=== PATIENT | female | born 1995 | race Caucasian/White ===

== ENCOUNTER 2017-02-10 09:05 | Emergency (ER) | payer OTHER ==
[~2017-02-10] VITALS: Ht 160 cm; Wt 59.1 kg
[~2017-02-10 09:05] MED LIST: PRENTAB26 PO
[2017-02-10 09:09] VITALS: TEMP 36.8; Ht 160 cm; Wt 59.1 kg
[2017-02-10] MEDS ORDERED: HYDROmorphone INJ 1 MG/ML SYR IV STA ×2 (09:23→12:35)
[2017-02-10] MEDS ORDERED: ONDANSETRON INJ 2 MG/ML 2 ML VIAL IV STA ×2 (09:23→10:27)
[2017-02-10] MEDS ORDERED: KETOROLAC TROMETHAMINE 30 MG/ML VIAL IV STA (09:23)
[2017-02-10] MEDS ORDERED: SODIUM CHLORIDE 0.9% 1000ML 1,000 ML IV STA ×2 (09:23)
[2017-02-10 09:50] LABS: URINE APPEARANCE CLEAR (CLEAR); URINE BILIRUBIN NEG (NEG); URINE COLOR YELLOW; URINE EPITHELIAL CELL AUTO >30 /lpf (0-5); URINE NITRITE NEG (NEG); UROBILINOGEN NEG (NEG)
[2017-02-10 09:56] LABS: MANUAL MICROSCOPIC REQUIRED? NO; REVIEW REQ? NO
[2017-02-10 09:56] LABS: BASO % 0.4 %; BASO ABS # 0.04 K/uL (0-0.2); COMPLETE YES; EOS % 2.6 %; HEMATOCRIT 45.1 % (37-47); IG% 0.2 %; LYMPH % 32.8 %; MEAN CELL VOLUME 86.6 fL (80-100); MEAN CORPUSCULAR HEMOGLOBIN 30.1 pg (25-34); MEAN CORPUSCULAR HGB CONC 34.8 g/dl (32-36); MEAN PLATELET VOLUME 9.9 fL (7.4-10.4); MONO % 6.6 %; NEUT % 57.4 %; PLATELET COUNT 383 K/uL (130-400); RED BLOOD COUNT 5.21 M/uL (4.2-5.4); WHITE BLOOD COUNT 9.15 K/uL (4.8-10.8)
[2017-02-10] MEDS ORDERED: AMT10 PO (10:03)
[2017-02-10 10:13] LABS: BUN/CREATININE RATIO 13.5 (10-20); CREATININE 0.8 mg/dl (0.60-1.20); POTASSIUM 4.2 mmol/L (3.5-5.1)
[2017-02-10] MEDS ORDERED: HYDROmorphone INJ 0.5 MG/0.5 ML SYR IV STA (10:27)
[2017-02-10 10:34] LABS: PREG INTERNAL NEGATIVE QC NEG CLEAR BACKGROUND; PREG INTERNAL POSITIVE QC POS CONTROL LINE
--- NOTE | 2017-02-10 10:47 | DIAGNOSTIC IMAGING REPORT ---
CT SCAN OF THE ABDOMEN AND PELVIS WITHOUT IV CONTRAST CLINICAL HISTORY: Flank pain. COMPARISON STUDY: Abdominal CT dated 03/17/2014. TECHNIQUE: CT scan of the abdomen and pelvis is performed from the lung bases to the proximal femora. Images are reviewed in the axial, sagittal, and coronal planes. IV contrast was not administered for this examination. Automated dose control exposure was utilized. CT DOSE: 279.02 mGy.cm FINDINGS: Lung bases: The heart is normal in size and without pericardial effusion. The lung bases are clear. Liver: The unenhanced liver is normal in size, contour, and attenuation. There is no intrahepatic biliary ductal dilatation. Gallbladder: Unremarkable. Spleen: Normal in size and attenuation. Pancreas: Unremarkable. Adrenal glands: Unremarkable. Kidneys: The unenhanced kidneys are normal in size and without hydronephrosis. There is a 4 mm nonobstructing calculus in the lower pole of the right kidney. A punctate nonobstructing calculus is seen in the left lower pole. There is no evidence of contour deforming renal mass lesion. Abdominal vasculature: The abdominal aorta is normal in course and caliber. Bowel: The small bowel and colon are normal in course and caliber. There is mild to moderate colonic fecal retention. The appendix is surgically absent. Peritoneum: There is no intraperitoneal free air or abdominal ascites. There is a small fat-containing umbilical hernia. Lymphadenopathy: None. Pelvic viscera: The bladder, uterus, and adnexa are normal as visualized. There are tiny ovarian follicles. Skeletal structures: There are postoperative changes from L5 to S1 spinal fusion. No lytic or blastic lesions are seen. IMPRESSION: 1. There are no acute infectious or inflammatory findings in the abdomen or pelvis. 2. Small bilateral nonobstructing renal calculi. 3. Additional findings as above. Electronically signed by: Rafat Monique M.D. 02/10/2017 10:46 AM Dictated Date/Time: 02/10/2017 10:42 AM
--- NOTE | 2017-02-10 11:48 | EMERGENCY ROOM VISIT NOTE ---
ED Visit Note First contact with patient: 09:13 CHIEF COMPLAINT: Left flank pain 3 days HISTORY OF PRESENT ILLNESS: Patient is a 21-year-old white female with history of kidney stones presents emergency department for evaluation of left flank pain 3 days. She noted a constant, dull, aching pain in her left low back about 3 days ago, this morning she began to feel pain in her left lower quadrant , and the pain markedly increased. She reports some associated nausea. The pain comes in waves. She was using Tylenol over the weekend for her discomfort. She noted urinary frequency, denies dysuria or hematuria. She denies feeling feverish. She presently rates her discomfort a 7/10. She is having difficulty getting comfortable. Her last menstrual period was 3 weeks ago. She has a history of kidney stones in , and a remote history of ovarian cysts. REVIEW OF SYSTEMS: Review of systems as per HPI. All other systems reviewed were negative. 10 systems reviewed. PMH: Electronic medical records are reviewed and summarized as above/below. See Problem List. SOCIAL HISTORY: Patient lives at home with her parents and her 1-year-old daughter. Employed. Does not smoke. PHYSICAL EXAM: Vital Signs: Reviewed Nurse's notes. CONSTITUTIONAL: Patient is uncomfortable, tearful 21-year-old white female who is awake and alert and in moderate distress due to her discomfort. EYES: Pupils equal, round, reactive to light and accommodation. EOMs intact without nystagmus. Sclera are anicteric. ENT: Tympanic membranes intact, with normal landmarks. External canals are clear. Oral and nasopharynx are clear. Mucous membranes are moist, no lesions , tongue and gums appear normal. NECK: No bruits auscultated. Supple without lymphadenopathy. No thyromegaly. No meningeal signs. Full active range of motion without discomfort. CARDIOVASCULAR: Regular rate and rhythm, with normal S1 and S2, no murmur or gallop or rub is heard. No carotid bruits auscultated. No JVD. Peripheral pulses easily palpable. RESPIRATORY: Breath sounds equal and clear to auscultation without wheezes, rales, or rhonchi heard. Full and equal chest expansion without accessory muscle use or retractions. ABDOMEN: Well-healed surgical scars are noted. Abdomen soft, nondistended, nontender to percussion throughout. She has slight discomfort in the left lower quadrant, without guarding, rebound or rigidity. INTEGUMENTARY: No lesions or rash, normal skin turgor. LYMPH: No lymphadenopathy. EMERGENCY DEPARTMENT COURSE: The patient was seen and evaluated as above. Her old records are reviewed. IV lock was initiated. She was hydrated with normal saline solution. Laboratory studies were collected including CBC with differential, BMP, urinalysis and urine test. She was initially medicated with Toradol 30 mg, Zofran 4 mg and Dilaudid 1 mg IV. Urine dip did note trace blood, and trace WBCs. Urine test was negative. Given her left flank pain, history of kidney stones and hematuria, CT scan of the abdomen and pelvis without contrast was ordered. The patient's laboratory studies revealed a normal white count at 9100. No left shift or bandemia. She is not anemic. Electrolytes and renal functions are within normal limits. Urine microscopy demonstrated a small amount of leukocyte esterase, 10-30 WBCs and 2+ bacteria and a sample that is contaminated with greater than 30 epithelial cells. Given her flank pain however, urine culture was ordered and is pending. CT scan of the abdomen and pelvis noted bilateral nonobstructing renal calculi, no evidence for ureteral calculi and no evidence for hydronephrosis. There is mild to moderate colonic fecal retention. No obvious adnexal masses noted. Postoperative changes consistent with a lumbar fusion, without evidence for acute changes. The patient reported increasing pain when she returned from CT and was given an additional 0.5 mg of IV Dilaudid. All laboratory and diagnostic imaging studies were reviewed with her. Conservative care measures were discussed. Differential diagnoses entertained included UTI, pyelonephritis , renal colic, constipation, ovarian cyst, , ectopic , PID, tubo-ovarian abscess, diverticulitis, bowel obstruction, perforation, musculoskeletal pain, among others. The patient was given an additional 1 mg of Dilaudid IV prior to discharge. She was provided a small prescription for Percocet to use for pain, but counseled that if her left flank pain is due to constipation, Percocet would likely worsen this. She was encouraged to have close follow-up with her primary care provider for further care and evaluation. She was educated on the worrisome signs or symptoms for which she should return to the emergency department. She was discharged home with her mother driving in stable condition. She rated her pain a 7/10 at discharge. Patient was reviewed in the [facility] Prescription Drug Monitoring Program, and there were no red flags noted. CT SCAN OF THE ABDOMEN AND PELVIS WITHOUT IV CONTRAST CLINICAL HISTORY: Flank pain. COMPARISON STUDY: Abdominal CT dated 03/17/2014. TECHNIQUE: CT scan of the abdomen and pelvis is performed from the lung bases to the proximal femora. Images are reviewed in the axial, sagittal, and coronal planes. IV contrast was not administered for this examination. Automated dose control exposure was utilized. CT DOSE: 279.02 mGy.cm FINDINGS: Lung bases: The heart is normal in size and without pericardial effusion. The lung bases are clear. Liver: The unenhanced liver is normal in size, contour, and attenuation. There is no intrahepatic biliary ductal dilatation. Gallbladder: Unremarkable. Spleen: Normal in size and attenuation. Pancreas: Unremarkable. Adrenal glands: Unremarkable. Kidneys: The unenhanced kidneys are normal in size and without hydronephrosis. There is a 4 mm nonobstructing calculus in the lower pole of the right kidney. A punctate nonobstructing calculus is seen in the left lower pole. There is no evidence of contour deforming renal mass lesion. Abdominal vasculature: The abdominal aorta is normal in course and caliber. Bowel: The small bowel and colon are normal in course and caliber. There is mild to moderate colonic fecal retention. The appendix is surgically absent. Peritoneum: There is no intraperitoneal free air or abdominal ascites. There is a small fat-containing umbilical hernia. Lymphadenopathy: None. Pelvic viscera: The bladder, uterus, and adnexa are normal as visualized. There are tiny ovarian follicles. Skeletal structures: There are postoperative changes from L5 to S1 spinal fusion. No lytic or blastic lesions are seen. IMPRESSION: 1. There are no acute infectious or inflammatory findings in the abdomen or pelvis. 2. Small bilateral nonobstructing renal calculi. 3. Additional findings as above. Problem List Medical Problems: (1) 35 to 36 weeks gestation of Status: Resolved (2) Abdominal pain Status: Resolved (3) Abdominal pain Status: Resolved (4) Constipation Status: Resolved (5) contractions, Status: Resolved (6) False labor after 37 completed weeks of gestation Status: Resolved (7) Flank pain Status: Resolved (8) Flank pain Status: Resolved (9) Hydroureteronephrosis Status: Resolved (10) Irregular contractions Status: Resolved (11) Kidney stone complicating Status: Resolved (12) Knee contusion Status: Resolved (13) labor Status: Resolved (14) Nausea Status: Resolved (15) Ovarian cyst Status: Resolved (16) Ovarian cyst Status: Resolved (17) with 29 completed weeks gestation Status: Resolved (18) CONTRACTIONS Status: Resolved (19) Right flank pain Status: Resolved (20) Uterine contractions Status: Resolved (21) Vaginal bleeding Status: Resolved Surgical Problems: (1) History of appendectomy Status: Resolved (2) History of back surgery Status: Resolved Current/Historical Medications Scheduled Amitriptyline HCl (Amitriptyline HCl), 10 MG PO QID Control Pills ( Control Pills), 1 TAB PO DAILY Duloxetine Hcl (Cymbalta), 60 MG PO DAILY Scheduled PRN Oxycodone Immediate Rel Tab (Roxicodone Ir), 1-2 TAB PO Q4H PRN for Severe Pain Allergies Coded Allergies: Codeine (Verified Allergy, Unknown, HIVES, 02/10/17) tolerated hydrocodone/acetaminophen during 2015 admission Vital Signs Date Time Temp Pulse Resp B/P Pulse Ox O2 Delivery O2 Flow Rate FiO2 02/10/17 12:48 106 18 128/91 98 Room Air 02/10/17 10:46 102 101 127/82 98 Room Air 02/10/17 09:09 36.8 105 18 141/89 98 Room Air Laboratory Results 02/10/17 09:40 Red Blood Count 5.21, Mean Corpuscular Volume 86.6, Mean Corpuscular Hemoglobin 30.1, Mean Corpuscular Hemoglobin Concent 34.8, Mean Platelet Volume 9.9, Neutrophils (%) (Auto) 57.4, Lymphocytes (%) (Auto) 32.8, Monocytes (%) (Auto) 6.6, Eosinophils (%) (Auto) 2.6, Basophils (%) (Auto) 0.4, Neutrophils # (Auto) 5.25, Lymphocytes # (Auto) 3.00, Monocytes # (Auto) 0.60, Eosinophils # (Auto) 0.24, Basophils # (Auto) 0.04 02/10/17 09:40 Test 02/10/17 09:30 02/10/17 09:40 Urine Color YELLOW Urine Appearance CLEAR (CLEAR) Urine pH 7.0 (4.5-7.5) Urine Specific [place] 1.020 (1.000-1.030) Urine Protein NEG (NEG) Urine Glucose (UA) NEG (NEG) Urine Ketones NEG (NEG) Urine Occult Blood NEG (NEG) Urine Nitrite NEG (NEG) Urine Bilirubin NEG (NEG) Urine Urobilinogen NEG (NEG) Urine Leukocyte Esterase SMALL (NEG) Urine WBC (Auto) 10-30 /hpf (0-5) Urine RBC (Auto) 0-4 /hpf (0-4) Urine Hyaline Casts (Auto) 1-5 /lpf (0-5) Urine Epithelial Cells (Auto) >30 /lpf (0-5) Urine Bacteria (Auto) 2+ (NEG) Urine Test NEG (NEG) White Blood Count 9.15 K/uL (4.8-10.8) Red Blood Count 5.21 M/uL (4.2-5.4) Hemoglobin 15.7 g/dL (12.0-16.0) Hematocrit 45.1 % (37-47) Mean Corpuscular Volume 86.6 fL (80-100) Mean Corpuscular Hemoglobin 30.1 pg (25-34) Mean Corpuscular Hemoglobin Concent 34.8 g/dl (32-36) Platelet Count 383 K/uL (130-400) Mean Platelet Volume 9.9 fL (7.4-10.4) Neutrophils (%) (Auto) 57.4 % Lymphocytes (%) (Auto) 32.8 % Monocytes (%) (Auto) 6.6 % Eosinophils (%) (Auto) 2.6 % Basophils (%) (Auto) 0.4 % Neutrophils # (Auto) 5.25 K/uL (1.4-6.5) Lymphocytes # (Auto) 3.00 K/uL (1.2-3.4) Monocytes # (Auto) 0.60 K/uL (0.11-0.59) Eosinophils # (Auto) 0.24 K/uL (0-0.5) Basophils # (Auto) 0.04 K/uL (0-0.2) RDW Standard Deviation 40.5 fL (36.4-46.3) RDW Coefficient of Variation 12.7 % (11.5-14.5) Immature Granulocyte % (Auto) 0.2 % Immature Granulocyte # (Auto) 0.02 K/uL (0.00-0.02) Anion Gap 8.0 mmol/L (3-11) Est Creatinine Clear Calc Drug Dose 90.4 ml/min Estimated GFR () 120.4 Estimated GFR (Non- 103.9 BUN/Creatinine Ratio 13.5 (10-20) Calcium Level 9.0 mg/dl (8.5-10.1) Medications Administered Medications (Trade) Dose Ordered Sig/Yi Route Start Time Stop Time Status Last Admin Dose Admin Sodium Chloride 1,000 ml @ 999 mls/hr Q1H1M STAT IV 02/10/17 09:23 02/10/17 10:23 DC 02/10/17 09:43 999 MLS/HR Sodium Chloride (Nss 1000ml) 1,000 ml @ 250 mls/hr Q4H STAT IV 02/10/17 09:23 02/10/17 13:22 DC 02/10/17 09:44 250 MLS/HR Ketorolac Tromethamine (Toradol Inj) 30 mg NOW STAT IV 02/10/17 09:23 02/10/17 09:27 DC 02/10/17 09:44 30 MG Ondansetron HCl (Zofran Inj) 4 mg NOW STAT IV 02/10/17 09:23 02/10/17 09:27 DC 02/10/17 09:44 4 MG Hydromorphone HCl (Dilaudid Inj) 1 mg NOW STAT IV 02/10/17 09:23 02/10/17 09:27 DC 02/10/17 09:44 1 MG Hydromorphone HCl (Dilaudid Inj) 0.5 mg NOW STAT IV 02/10/17 10:27 02/10/17 10:28 DC 02/10/17 10:42 0.5 MG Ondansetron HCl (Zofran Inj) 4 mg NOW STAT IV 02/10/17 10:27 02/10/17 10:28 DC 02/10/17 10:42 4 MG Hydromorphone HCl (Dilaudid Inj) 1 mg NOW STAT IV 02/10/17 12:35 02/10/17 12:36 DC 02/10/17 12:47 1 MG Departure Information Impression Primary Impression: Left flank pain Prescriptions Oxycodone Immediate Rel Tab (ROXICODONE IR) 5 Mg Tab 1-2 TAB PO Q4H Y for Severe Pain, #15 TAB For Initial Treatment Prov: Karen Evans PA 02/10/17 Referrals Sonido Viramontes M.D. (PCP) Patient Instructions [facility] Additional Instructions DO NOT drive, drink alcohol, operate machinery, or perform dangerous activities today. You were given medications in the ER that can affect your ability to safely function or operate a vehicle. Oxycodone (OxyIR) 5mg: Take 1-2 pills every four hours for breakthrough pain. Avoid alcohol, operating machinery or dangerous equipment, working on ladders or roofs, DRIVING, or situations where being under the influence may be dangerous. It is recommended to use an [id number] stool softener such as Colace, 100mg twice daily while taking this medication to avoid constipation. Miralax daily according to package instructions for constipation. Ibuprofen(Motrin, Advil) may be used for fever or pain. Use 600mg every six hours as needed. Take with food. Avoid using more than 2400mg in a 24 hour period. Do not use 2400mg per day for more than three consecutive days without physician direction. Prolonged inappropriate use can lead to stomach upset or ulcers. This is available over the counter and typically comes in 200mg tablets. (AND/OR) Acetaminophen(Tylenol) may be used for fever or pain. Use 1000mg every eight hours as needed. Avoid using more than 3000mg in a 24 hour period. This is available over the counter. Read all the package inserts or medication information paperwork provided. If you have any questions or concerns call your primary provider, pharmacist or the ER for assistance. Rest and drink plenty of fluids as tolerated. Slow sips of water or sports drinks are recommended instead of large amounts all at once. Continue current medications. Once your stomach is settled start with a clear liquid diet (jello, soup broth, etc.) and then advance as tolerated. You should avoid full, heavy meals for about 24 hrs from the time your symptoms resolved. Return to the ER immediately for worsening or persistent abdominal pain, vomiting, fevers, chest pains, difficulty breathing, black or bloody stools, worsening of your condition, or as needed. Follow up with your primary physician in 1-2 days for a recheck of your current condition.
[2017-02-10] MEDS ORDERED: OXYC1TAB3 PO (12:40)
[2017-02-10 12:48] VITALS: BP 128/91; PULSE 106; O2SAT 98
--- NOTE | 2017-02-12 15:25 | Pharmacy Progress Note ---
ED Pharmacist Culture FollowUp Date of Service: February 12, 2017. Enterobacter aerogenes growing from urine culture from ED visit 02/10. Patient admitted to [facility] on 02/12 for worsening urinary symptoms. Patient is currently receiving ceftriaxone as an inpatient which will not likely be effective per sensitivity results. Discussed with inpatient hospitalist (Dr. Martin) who is aware and switched to ciprofloxacin. No further intervention required by ED staff at this time.
[2017-02-12] MEDS ORDERED: CIPR-255 PO (18:10)
[2017-07-06] MEDS ORDERED: AMT10 PO (00:42)
[2017-07-06] MEDS ORDERED: BCPILLS PO (10:03)
[2017-07-06] MEDS ORDERED: DULO60CA44 PO (10:03)
[2017-07-29] MEDS ORDERED: ONDA4TAB10 SL (16:50)
== END 2017-02-10 13:01 | disposition home or self-care (01) ==
LOC: C.EDB 09:07
DX: R10.9 Unspecified abdominal pain (principal)

== ENCOUNTER 2017-02-11 20:18 | Inpatient (IN) | payer OTHER ==
[~2017-02-11] VITALS: Ht 160 cm; Wt 59.2 kg
[~2017-02-11 20:18] MED LIST changes: +AMT10 PO; +OXYC1TAB3 PO; -PRENTAB26 PO
[2017-02-11] MEDS ORDERED: ONDANSETRON INJ 2 MG/ML 2 ML VIAL IV STA (20:39)
[2017-02-11] MEDS ORDERED: SODIUM CHLORIDE 0.9% 1000ML 1,000 ML IV STA (20:39)
[2017-02-11] MEDS ORDERED: HYDROmorphone INJ 1 MG/ML SYR IV STA (20:39)
--- NOTE | 2017-02-11 20:46 | EMERGENCY ROOM VISIT NOTE ---
History Report prepared by Rosa: Matthias Browne Under the Supervision of: Dr. Michael Nicholson D.O. First contact with patient: 20:25 Chief Complaint: FLANK PAIN Stated Complaint: PAIN WORSE THAN YESTERDAY, WAS HERE LASTNIGHT History of Present Illness The patient is a 21 year old female who presents to the Emergency Room with complaints of worsening left flank pain starting yesterday. The pain radiates to her abdominal area from her back. She denies any activities that improve or worsen her pain. She was evaluated for a similar pain yesterday but the intensity of her pain has worsened today. Some mild pain is now occurring in the right flank as well. She notes nausea but denies vomiting. She also had some blood in urine today. She had a CT scan yesterday which showed some nonobstructing renal calculi. She has a history of prior kidney stone and reports similar symptoms today. She has a history of appendectomy but denies any history of cholecystectomy. Pt denies headache, change in vision, fevers, chest pain, shortness of breath, vaginal bleeding or discharge, diarrhea, pain with urination, and melena. Her last normal period was 2 weeks ago. Source of History: patient Onset: yesterday Position: other (left flank) Timing: worsening Associated Symptoms: + nausea, No SOB, No chest pain, No fevers, No vomiting Review of Systems See HPI for pertinent positives & negatives. A total of 10 systems reviewed and were otherwise negative. Past Medical & Surgical Medical Problems: (1) 35 to 36 weeks gestation of (2) Abdominal pain (3) Abdominal pain (4) Constipation (5) contractions, (6) False labor after 37 completed weeks of gestation (7) Flank pain (8) Flank pain (9) Hydroureteronephrosis (10) Irregular contractions (11) Kidney stone complicating (12) Knee contusion (13) labor (14) Nausea (15) Ovarian cyst (16) Ovarian cyst (17) with 29 completed weeks gestation (18) CONTRACTIONS (19) Right flank pain (20) Uterine contractions (21) Vaginal bleeding Surgical Problems: (1) History of appendectomy (2) History of back surgery Family History FH: gallbladder disease Hypertension Kidney disease Kidney stones Social History Smoking Status: Never Smoker Alcohol Use: none Drug Use: none Marital Status: single Housing Status: lives with family Occupation Status: employed Current/Historical Medications Scheduled Amitriptyline HCl (Amitriptyline HCl), 10 MG PO QID Control Pills ( Control Pills), 1 TAB PO DAILY Duloxetine Hcl (Cymbalta), 60 MG PO DAILY Scheduled PRN Oxycodone Immediate Rel Tab (Roxicodone Ir), 1-2 TAB PO Q4H PRN for Severe Pain Allergies Coded Allergies: Codeine (Verified Allergy, Unknown, HIVES, 02/10/17) tolerated hydrocodone/acetaminophen during 2014 admission Physical Exam Vital Signs Date Time Temp Pulse Resp B/P Pulse Ox O2 Delivery O2 Flow Rate FiO2 02/11/17 23:30 37.4 110 20 141/105 100 Room Air 02/11/17 22:01 108 18 117/81 97 Room Air 02/11/17 20:21 37.1 118 18 126/80 94 Room Air Physical Exam GENERAL: Sitting on edge of bed, in moderate distress, non-toxic EYE EXAM: normal conjunctiva OROPHARYNX: no exudate, no erythema, lips, buccal mucosa, and tongue normal and mucous membranes are moist NECK: supple, no nuchal rigidity, no adenopathy, non-tender LUNGS: Clear to auscultation. Normal chest wall mechanics HEART: no murmurs, S1 normal and S2 normal ABDOMEN: abdomen soft, non-tender, normo-active bowel sounds, no masses, no rebound or guarding. BACK: Back is symmetrical on inspection and there is no deformity, no midline tenderness, no CVA tenderness. SKIN: no rashes and no bruising UPPER EXTREMITIES: upper extremities are grossly normal. LOWER EXTREMITIES: No pitting edema. NEURO EXAM: Normal sensorium, cranial nerves II-XII grossly intact, normal speech, no gross weakness of arms, no gross weakness of legs. Medical Decision & Procedures ER Provider Diagnostic Interpretation: CT and US: Per my review, radiologist interpretation. CT ABDOMEN AND PELVIS: Comparison with CT from 02/10/17 Unchanged punctate nonobstructing calyceal calculus at the right lower renal pole and left lower renal pole. No obstructive uropathy. Prior appendectomy. No colitis, diverticulitis or bowel obstruction. Prominent stool throughout the colon. No free air or free fluid or other acute disease. No other uterine lumbar disease. Radiologist: Munira Kidd MD RENAL ULTRASOUND HISTORY: Left flank pain. COMPARISON: Abdomen and pelvis CT 02/10/2017. Renal ultrasound 09/10/2015. FINDINGS: Right kidney: 10.9 cm. No hydronephrosis. Normal corticomedullary differentiation and cortical thickness. Left kidney: 10.2 cm. No hydronephrosis. Normal corticomedullary differentiation and cortical thickness. Bladder: No bladder wall thickening. The bilateral ureteral jets were identified. IMPRESSION: Normal renal ultrasound. Electronically signed by: Matthew Neff M.D. 02/11/2017 9:32 PM Dictated Date/Time: 02/11/2017 9:31 PM Laboratory Results 02/11/17 20:50 Red Blood Count 5.20, Mean Corpuscular Volume 86.3, Mean Corpuscular Hemoglobin 28.7, Mean Corpuscular Hemoglobin Concent 33.2, Mean Platelet Volume 9.6, Neutrophils (%) (Auto) 66.7, Lymphocytes (%) (Auto) 23.2, Monocytes (%) (Auto) 8.0, Eosinophils (%) (Auto) 1.6, Basophils (%) (Auto) 0.2, Neutrophils # (Auto) 12.81, Lymphocytes # (Auto) 4.46, Monocytes # (Auto) 1.53, Eosinophils # (Auto) 0.31, Basophils # (Auto) 0.04 02/11/17 20:50 Test 02/11/17 20:50 02/11/17 22:00 White Blood Count 19.21 K/uL (4.8-10.8) Red Blood Count 5.20 M/uL (4.2-5.4) Hemoglobin 14.9 g/dL (12.0-16.0) Hematocrit 44.9 % (37-47) Mean Corpuscular Volume 86.3 fL (80-100) Mean Corpuscular Hemoglobin 28.7 pg (25-34) Mean Corpuscular Hemoglobin Concent 33.2 g/dl (32-36) Platelet Count 382 K/uL (130-400) Mean Platelet Volume 9.6 fL (7.4-10.4) Neutrophils (%) (Auto) 66.7 % Lymphocytes (%) (Auto) 23.2 % Monocytes (%) (Auto) 8.0 % Eosinophils (%) (Auto) 1.6 % Basophils (%) (Auto) 0.2 % Neutrophils # (Auto) 12.81 K/uL (1.4-6.5) Lymphocytes # (Auto) 4.46 K/uL (1.2-3.4) Monocytes # (Auto) 1.53 K/uL (0.11-0.59) Eosinophils # (Auto) 0.31 K/uL (0-0.5) Basophils # (Auto) 0.04 K/uL (0-0.2) RDW Standard Deviation 39.1 fL (36.4-46.3) RDW Coefficient of Variation 12.3 % (11.5-14.5) Immature Granulocyte % (Auto) 0.3 % Immature Granulocyte # (Auto) 0.06 K/uL (0.00-0.02) Red Blood Cell Morphology Unremarkable Urine Test NEG (NEG) Anion Gap 9.0 mmol/L (3-11) Est Creatinine Clear Calc Drug Dose 91.6 ml/min Estimated GFR () 122.3 Estimated GFR (Non- 105.5 BUN/Creatinine Ratio 8.6 (10-20) Calcium Level 8.6 mg/dl (8.5-10.1) Total Bilirubin 0.5 mg/dl (0.2-1) Direct Bilirubin mg/dl (0-0.2) Aspartate Amino Transf (AST/SGOT) 19 U/L (15-37) Alanine Aminotransferase (ALT/SGPT) 21 U/L (12-78) Alkaline Phosphatase 77 U/L (45-117) Total Protein 7.8 gm/dl (6.4-8.2) Albumin 3.5 gm/dl (3.4-5.0) Lipase 69 U/L (73-393) Chemistry Specimen Hemolysis Urine Color YELLOW Urine Appearance CLOUDY (CLEAR) Urine pH 6.0 (4.5-7.5) Urine Specific [place] 1.012 (1.000-1.030) Urine Protein 3+ (NEG) Urine Glucose (UA) NEG (NEG) Urine Ketones NEG (NEG) Urine Occult Blood 3+ (NEG) Urine Nitrite NEG (NEG) Urine Bilirubin NEG (NEG) Urine Urobilinogen NEG (NEG) Urine Leukocyte Esterase MODERATE (NEG) Urine WBC (Auto) >30 /hpf (0-5) Urine RBC (Auto) >30 /hpf (0-4) Urine Hyaline Casts (Auto) 0 /lpf (0-5) Urine Epithelial Cells (Auto) 0-5 /lpf (0-5) Urine Bacteria (Auto) 3+ (NEG) Laboratory results per my review. Medications Administered Medications (Trade) Dose Ordered Sig/Yi Route Start Time Stop Time Status Last Admin Dose Admin Sodium Chloride (Nss 1000ml) 1,000 ml @ 999 mls/hr Q1H1M STAT IV 02/11/17 20:39 02/11/17 21:39 DC 02/11/17 20:55 999 MLS/HR Ondansetron HCl (Zofran Inj) 4 mg NOW STAT IV 02/11/17 20:39 02/11/17 20:41 DC 02/11/17 20:55 4 MG Hydromorphone HCl (Dilaudid Inj) 1 mg NOW STAT IV 02/11/17 20:39 02/11/17 20:41 DC 02/11/17 20:55 1 MG Hydromorphone HCl (Dilaudid Inj) 0.5 mg NOW STAT IV 02/11/17 21:53 02/11/17 21:54 DC 02/11/17 21:57 0.5 MG Ceftriaxone Sodium (Rocephin Inj) 1 gm NOW STAT IV 02/11/17 23:00 02/11/17 23:01 DC 02/12/17 00:43 1 GM Hydromorphone HCl 0.5 mg 0.5 mg NOW STAT IV 02/11/17 23:35 02/11/17 23:36 DC 02/11/17 23:45 0.5 MG Sodium Chloride (Nss 1000ml) 1,000 ml @ 999 mls/hr Q1H1M STAT IV 02/12/17 00:10 02/12/17 01:10 DC 02/12/17 00:43 999 MLS/HR Hydromorphone HCl (Dilaudid Inj) 0.5 mg NOW STAT IV 02/12/17 00:57 02/12/17 00:58 DC 02/12/17 01:01 0.5 MG ED Course ED COURSE: Vital signs were reviewed and showed tachycardic. The patients medical record was reviewed The above diagnostic studies were performed and reviewed. ED treatments and interventions as stated above. 2024: The patient was evaluated in room B11B. A complete history and physical examination was performed. 2038: Dilaudid Inj 1 mg IV, Zofran Inj 4 mg IV, Sodium Chloride 1000 ml @ 999 mls/hr IV 2153: Dilaudid Inj 0.5 mg IV 2300: Rocephin Inj 1 gm IV 2305: I reevaluated the patient who is resting comfortably. 2335: Dilaudid Inj 0.5 mg IV 0009: I discussed the patient's case with Dr. Fowler, from [facility]. 0010: Sodium Chloride 1000 ml @ 999 mls/hr IV 0015: Upon reevaluation, the patient is resting comfortably.I discussed my findings with the patient and she understands and agrees with the treatment plan. Based on the patients age, coexisting illnesses, exam and lab findings the decision to treat as an inpatient was made. The patient remained stable while under my care. The patient will be evaluated for further management. Medical Decision Differential diagnoses includes but is not limited to gastritis, peptic ulcer disease, GERD, gallbladder disease, pancreatitis, small bowel obstruction, acute coronary syndrome, pericarditis, ischemic bowel, irritable bowel disease, irritable bowel syndrome, diverticulitis, malignancy, hernia, urinary tract infection, /ectopic (if female), perforation, trauma, infectious. Patient is a 21-year-old female who presents the ER for severe left flank pain associated with nausea. She was persistently tachycardic on the ER. Labs remarkable for a leukocytosis of 19,000. BMP along with LFTs, bilirubin and lipase is normal. UA shows leukocytes, white its and +3 bacteria. Ultrasound was performed prior to the result of the UA which showed no hydronephrosis. Patient was persistent in that this feels exactly like her previous kidney stones and consequently I did repeat a CT scan although one was performed yesterday to make sure she was not passing one because this would require immediate surgery. CT stone study again was negative. She was given a dose of Rocephin. She is given a bolus normal saline. She was admitted to internal medicine for likely pyelonephritis. Consults Time Called: 4 Consulting Physician: Dr. Fowler, from [facility] Returned Call: 8 I discussed the patient's case with Dr. Fowler, from [facility]. Impression Primary Impression: Pyelonephritis Additional Impressions: Leukocytosis UTI (urinary tract infection) Scribe Attestation The scribe's documentation has been prepared under my direction and personally reviewed by me in its entirety. I confirm that the note above accurately reflects all work, treatment, procedures, and medical decision making performed by me. Departure Information Dispostion Being Evaluated By Hospitalist Referrals No Doctor, Assigned (PCP) Patient Instructions My [facility] Problem Qualifiers Additional Impressions: Leukocytosis Leukocytosis type: unspecified Qualified Codes: D72.829 - Elevated white blood cell count, unspecified UTI (urinary tract infection) Urinary tract infection type: acute cystitis Hematuria presence: with hematuria Qualified Codes: N30.01 - Acute cystitis with hematuria
[2017-02-11 21:08] LABS: URINE APPEARANCE CLOUDY (CLEAR); URINE BILIRUBIN NEG (NEG); URINE COLOR YELLOW; URINE NITRITE NEG (NEG); URINE SPECIFIC GRAVITY 1.013 (1.000-1.030); UROBILINOGEN NEG (NEG); ZZUR CULT IF INDIC CLEAN CATCH YES
[2017-02-11 21:09] LABS: MANUAL MICROSCOPIC REQUIRED? NO; REVIEW REQ? NO
[2017-02-11 21:21] LABS: ALT/SGPT 21 U/L (12-78); AST/SGOT 19 U/L (15-37); BLOOD UREA NITROGEN 7 mg/dl (7-18); BUN/CREATININE RATIO 8.6 (10-20); CALCIUM 8.6 mg/dl (8.5-10.1); CARBON DIOXIDE 26 mmol/L (21-32); CHLORIDE 105 mmol/L (98-107); CREATININE 0.79 mg/dl (0.60-1.20); GLUCOSE 88 mg/dl (70-99); POTASSIUM 3.9 mmol/L (3.5-5.1); SODIUM 140 mmol/L (136-145)
[2017-02-11 21:23] LABS: ALKALINE PHOSPHATASE 77 U/L (45-117)
--- NOTE | 2017-02-11 21:34 | DIAGNOSTIC IMAGING REPORT ---
RENAL ULTRASOUND HISTORY: Left flank pain. COMPARISON: Abdomen and pelvis CT 02/10/2017. Renal ultrasound 09/10/2015. FINDINGS: Right kidney: 10.9 cm. No hydronephrosis. Normal corticomedullary differentiation and cortical thickness. Left kidney: 10.2 cm. No hydronephrosis. Normal corticomedullary differentiation and cortical thickness. Bladder: No bladder wall thickening. The bilateral ureteral jets were identified. IMPRESSION: Normal renal ultrasound. Electronically signed by: Matthew Neff M.D. 02/11/2017 9:32 PM Dictated Date/Time: 02/11/2017 9:31 PM
[2017-02-11] MEDS ORDERED: HYDROmorphone INJ 0.5 MG/0.5 ML SYR IV STA ×2 (21:53→23:35)
[2017-02-11 22:29] LABS: URINE APPEARANCE CLOUDY (CLEAR); URINE BILIRUBIN NEG (NEG); URINE COLOR YELLOW; URINE EPITHELIAL CELL AUTO 0-5 /lpf (0-5); URINE NITRITE NEG (NEG); URINE SPECIFIC GRAVITY 1.012 (1.000-1.030); UROBILINOGEN NEG (NEG)
[2017-02-11 22:30] LABS: MANUAL MICROSCOPIC REQUIRED? NO; REVIEW REQ? NO
[2017-02-11 22:46] LABS: HEMATOCRIT 44.9 % (37-47); MEAN CELL VOLUME 86.3 fL (80-100); MEAN CORPUSCULAR HEMOGLOBIN 28.7 pg (25-34); MEAN CORPUSCULAR HGB CONC 33.2 g/dl (32-36); MEAN PLATELET VOLUME 9.6 fL (7.4-10.4); PLATELET COUNT 382 K/uL (130-400); WHITE BLOOD COUNT 19.21 K/uL (4.8-10.8)
[2017-02-11 22:47] LABS: BASO % 0.2 %; BASO ABS # 0.04 K/uL (0-0.2); COMPLETE YES; EOS % 1.6 %; IG% 0.3 %; LYMPH % 23.2 %; LYMPH ABS # 4.46 K/uL (1.2-3.4); NEUT % 66.7 %
[2017-02-11] MEDS ORDERED: CEFTRIAXONE SOD INJ 1 GM ADDVIAL IV STA (23:00)
[2017-02-12] MEDS ORDERED: SODIUM CHLORIDE 0.9% 1000ML 1,000 ML IV STA (00:10)
[2017-02-12] MEDS ORDERED: HYDROmorphone INJ 0.5 MG/0.5 ML SYR IV STA (00:57)
--- NOTE | 2017-02-12 01:39 | History and Physical ---
History & Physical Date & Time of Service: February 12, 2017 at 01:39 Chief Complaint: Pain Worse Than Yesterday, Was Here Lastnight Primary Care Physician: Sonido Viramontes M.D. History of Present Illness Source: family The patient is a 21 year old female who presents to the Emergency Room with complaints of left flank pain Her symptom started yesterday -radiating to lower abdomen to back has nausea no episode of vomiting chills and subjective fever at home noticed hematuria was at ED yesterday for similar symptom CT abdomen /pelvis showed nonobstructing renal calculi. She has history of prior kidney stone and her symptoms are similar to prior episode in the ER pt was found to be , tachycardic, WBC elevated 19 K UA +ve of leukocyte esterase Renal USG negative for hydronephrosis Past Medical/Surgical History Medical Problems: (1) 35 to 36 weeks gestation of Status: Resolved (2) Abdominal pain Status: Resolved (3) Abdominal pain Status: Resolved (4) Constipation Status: Resolved (5) contractions, Status: Resolved (6) False labor after 37 completed weeks of gestation Status: Resolved (7) Flank pain Status: Resolved (8) Flank pain Status: Resolved (9) Hydroureteronephrosis Status: Resolved (10) Irregular contractions Status: Resolved (11) Kidney stone complicating Status: Resolved (12) Knee contusion Status: Resolved (13) labor Status: Resolved (14) Nausea Status: Resolved (15) Ovarian cyst Status: Resolved (16) Ovarian cyst Status: Resolved (17) with 29 completed weeks gestation Status: Resolved (18) CONTRACTIONS Status: Resolved (19) Right flank pain Status: Resolved (20) Uterine contractions Status: Resolved (21) Vaginal bleeding Status: Resolved Surgical Problems: (1) History of appendectomy Status: Resolved (2) History of back surgery Status: Resolved Family History FH: gallbladder disease Hypertension Kidney disease Kidney stones Social History Smoking Status: Never Smoker Drug Use: none Marital Status: single Occupational Status: employed Immunizations History of Influenza Vaccine: Yes History of Tetanus Vaccine?: Yes History of Pneumococcal: No History of Hepatitis B Vaccine: No Allergies Coded Allergies: Codeine (Verified Allergy, Unknown, HIVES, 02/10/17) tolerated hydrocodone/acetaminophen during 2015 admission Home Medications Scheduled Amitriptyline HCl (Amitriptyline HCl), 10 MG PO QID Control Pills ( Control Pills), 1 TAB PO DAILY Duloxetine Hcl (Cymbalta), 60 MG PO DAILY Scheduled PRN Oxycodone Immediate Rel Tab (Roxicodone Ir), 1-2 TAB PO Q4H PRN for Severe Pain Review of Systems Constitutional: + chills, + fatigue, + sweats, + weakness Abdomen: + nausea, + pain, + problem reported (as per HPI ) Genitourinary - Female: + dysuria, + hematuria Physical Exam Vital Signs Date Time Temp Pulse Resp B/P Pulse Ox O2 Delivery O2 Flow Rate FiO2 02/12/17 01:30 101 16 118/77 98 02/11/17 23:30 37.4 110 20 141/105 100 Room Air 02/11/17 22:01 108 18 117/81 97 Room Air 02/11/17 20:21 37.1 118 18 126/80 94 Room Air General Appearance: no apparent distress Eyes: sclerae normal Respiratory/Chest: lungs clear, normal breath sounds, no respiratory distress Cardiovascular: regular rate, rhythm Abdomen/GI: non tender, soft Extremities/Musculoskelatal: no pedal edema Neurologic/Psych: no motor/sensory deficits, alert, normal mood/affect Skin: normal color, warm/dry, no rash Diagnostics Laboratory Results Results Past 24 Hours Test 02/11/17 20:50 02/11/17 22:00 Range/Units White Blood Count 19.21 4.8-10.8 K/uL Red Blood Count 5.20 4.2-5.4 M/uL Hemoglobin 14.9 12.0-16.0 g/dL Hematocrit 44.9 37-47 % Mean Corpuscular Volume 86.3 80-100 fL Mean Corpuscular Hemoglobin 28.7 25-34 pg Mean Corpuscular Hemoglobin Concent 33.2 32-36 g/dl Platelet Count 382 130-400 K/uL Mean Platelet Volume 9.6 7.4-10.4 fL Neutrophils (%) (Auto) 66.7 % Lymphocytes (%) (Auto) 23.2 % Monocytes (%) (Auto) 8.0 % Eosinophils (%) (Auto) 1.6 % Basophils (%) (Auto) 0.2 % Neutrophils # (Auto) 12.81 1.4-6.5 K/uL Lymphocytes # (Auto) 4.46 1.2-3.4 K/uL Monocytes # (Auto) 1.53 0.11-0.59 K/uL Eosinophils # (Auto) 0.31 0-0.5 K/uL Basophils # (Auto) 0.04 0-0.2 K/uL RDW Standard Deviation 39.1 36.4-46.3 fL RDW Coefficient of Variation 12.3 11.5-14.5 % Immature Granulocyte % (Auto) 0.3 % Immature Granulocyte # (Auto) 0.06 0.00-0.02 K/uL Red Blood Cell Morphology Unremarkable Urine Color YELLOW YELLOW Urine Appearance CLOUDY CLOUDY CLEAR Urine pH 6.0 6.0 4.5-7.5 Urine Specific [place] 1.013 1.012 1.000-1.030 Urine Protein 3+ 3+ NEG Urine Glucose (UA) NEG NEG NEG Urine Ketones NEG NEG NEG Urine Occult Blood 3+ 3+ NEG Urine Nitrite NEG NEG NEG Urine Bilirubin NEG NEG NEG Urine Urobilinogen NEG NEG NEG Urine Leukocyte Esterase MODERATE MODERATE NEG Urine WBC (Auto) >30 >30 0-5 /hpf Urine RBC (Auto) >30 >30 0-4 /hpf Urine Hyaline Casts (Auto) 1-5 0 0-5 /lpf Urine Epithelial Cells (Auto) 10-20 0-5 0-5 /lpf Urine Bacteria (Auto) 1+ 3+ NEG Urine Test NEG NEG Sodium Level 140 136-145 mmol/L Potassium Level 3.9 3.5-5.1 mmol/L Chloride Level 105 98-107 mmol/L Carbon Dioxide Level 26 21-32 mmol/L Anion Gap 9.0 3-11 mmol/L Blood Urea Nitrogen 7 7-18 mg/dl Creatinine 0.79 0.60-1.20 mg/dl Est Creatinine Clear Calc Drug Dose 91.6 ml/min Estimated GFR () 122.3 Estimated GFR (Non- 105.5 BUN/Creatinine Ratio 8.6 10-20 Random Glucose 88 70-99 mg/dl Calcium Level 8.6 8.5-10.1 mg/dl Total Bilirubin 0.5 0.2-1 mg/dl Direct Bilirubin 0-0.2 mg/dl Aspartate Amino Transf (AST/SGOT) 19 15-37 U/L Alanine Aminotransferase (ALT/SGPT) 21 12-78 U/L Alkaline Phosphatase 77 45-117 U/L Total Protein 7.8 6.4-8.2 gm/dl Albumin 3.5 3.4-5.0 gm/dl Lipase 69 73-393 U/L Chemistry Specimen Hemolysis Microbiology Results 02/11/17 Urine Culture, Received Pending Diagnostic Radiology CT and US: Per my review, radiologist interpretation. CT ABDOMEN AND PELVIS: Comparison with CT from 02/10/17 Unchanged punctate nonobstructing calyceal calculus at the right lower renal pole and left lower renal pole. No obstructive uropathy. Prior appendectomy. No colitis, diverticulitis or bowel obstruction. Prominent stool throughout the colon. No free air or free fluid or other acute disease. No other uterine lumbar disease. Radiologist: Munira Kidd MD RENAL ULTRASOUND HISTORY: Left flank pain. COMPARISON: Abdomen and pelvis CT 02/10/2017. Renal ultrasound 09/10/2015. FINDINGS: Right kidney: 10.9 cm. No hydronephrosis. Normal corticomedullary differentiation and cortical thickness. Left kidney: 10.2 cm. No hydronephrosis. Normal corticomedullary differentiation and cortical thickness. Bladder: No bladder wall thickening. The bilateral ureteral jets were identified. IMPRESSION: Normal renal ultrasound. Impression Assessment and Plan FLANK PAIN /NON OBSTRUCTIVE RENAL STONE /UTI : ct abdomen /pelvis as above renal USG shows no evidence of hydronephrosis continue empiric Abx with IV Rocephin follow blood and urine culture Urology eval requested LEUKOCYTOSIS : Due to above follow culture report on IV Rocephin abx will be adjusted as culture is available DEPRESSION cont out pt meds FULL CODE DISPOSITION: expected to be discharged home when medically stable Medicine follow up with Dr Gary Level of Care Med/Surg Resuscitation Status FULL RESUSCITATION VTE Prophylaxis VTE Risk Assessment Done? Y/N: Yes Risk Level: Very Low Given or contraindicated: T.E.D. Stockings, SCD's
[2017-02-12] MEDS ORDERED: TAMSULOSIN HCL 0.4 MG CAP PO ONE (01:45)
[2017-02-12] MEDS ORDERED: MAGNESIUM HYDROXIDE SUSP 30 ML UDC PO PRN (01:45)
[2017-02-12] MEDS ORDERED: ALUMINUM/MAGNESIUM/SIMETH (MAALOX MAX) 30 ML UDC PO PRN (01:45)
[2017-02-12] MEDS ORDERED: POLYETHYLENE (MIRALAX) 17 GM PACK PO PRN (01:45)
[2017-02-12] MEDS ORDERED: ZOLPIDEM TARTRATE 5 MG TAB PO PRN (01:45)
[2017-02-12] MEDS ORDERED: ACETAMINOPHEN 325 MG TAB PO PRN (01:45)
[2017-02-12] MEDS ORDERED: ONDANSETRON INJ 2 MG/ML 2 ML VIAL IV PRN (01:45)
[2017-02-12 01:50] VITALS: BP 129/91; PULSE 102; TEMP 36.6; O2SAT 97
[2017-02-12 02:00] VITALS: BP 129/91; PULSE 102; TEMP 36.6; O2SAT 97; Ht 160 cm; Wt 59.2 kg
[2017-02-12] MEDS: HYDROmorphone INJ 1 MG/ML SYR IV PRN ×3 (03:02→11:02)
[2017-02-12] MEDS: SODIUM CHLORIDE 0.9% 1000ML 1,000 ML IV SCH ×2 (03:54→11:00)
[2017-02-12] MEDS ORDERED: OXYCODONE HCL IR 5 MG TAB (IMMEDIATE RELEASE) PO PRN (05:30)
[2017-02-12 06:04] LABS: HEMATOCRIT 36.9 % (37-47); MEAN CELL VOLUME 87.9 fL (80-100); MEAN CORPUSCULAR HEMOGLOBIN 29.5 pg (25-34); MEAN CORPUSCULAR HGB CONC 33.6 g/dl (32-36); MEAN PLATELET VOLUME 9.6 fL (7.4-10.4); PLATELET COUNT 283 K/uL (130-400); WHITE BLOOD COUNT 12.84 K/uL (4.8-10.8)
[2017-02-12 06:46] LABS: BUN/CREATININE RATIO 7.3 (10-20); CALCIUM 7.6 mg/dl (8.5-10.1); CREATININE 0.63 mg/dl (0.60-1.20); POTASSIUM 3.7 mmol/L (3.5-5.1)
--- NOTE | 2017-02-12 06:51 | DIAGNOSTIC IMAGING REPORT ---
ABDOMEN AND PELVIS CT WITHOUT CONTRAST CT DOSE: 268.71 mGy.cm HISTORY: Flank pain severe left flank pain ? Stone w/ UTI TECHNIQUE: Multiaxial CT images of the abdomen and pelvis were performed without contrast. COMPARISON STUDY: 02/10/2017 FINDINGS: No change in the prior study. Nonobstructive bowel pattern. Increased fecal load within the colon. Nonobstructing renal calcifications unchanged. IMPRESSION: No acute or interval process. Small bilateral nonobstructing renal calcifications. Increased fecal load within the colon. Electronically signed by: Lalo Weber M.D. 02/12/2017 6:50 AM Dictated Date/Time: 02/12/2017 6:47 AM
[2017-02-12 07:38] VITALS: BP 106/70; PULSE 92; TEMP 36.5; O2SAT 97
[2017-02-12] MEDS ORDERED: AMITRIPTYLINE HCL 10 MG TAB PO SCH ×2 (08:00→21:00)
[2017-02-12] MEDS ORDERED: DULOXETINE HCL 60 MG CAP PO SCH ×2 (08:00→21:00)
[2017-02-12] MEDS ORDERED: DOCUSATE SODIUM 100 MG CAP PO SCH (08:00)
[2017-02-12] MEDS ORDERED: TAMSULOSIN HCL 0.4 MG CAP PO SCH (08:00)
[2017-02-12] MEDS ORDERED: NURSING VERBAL MED ORDER ONE (10:00)
--- NOTE | 2017-02-12 10:55 | DIAGNOSTIC IMAGING REPORT ---
KUB HISTORY: renal stone COMPARISON: Abdomen and pelvis CT 02/11/2017. FINDINGS: The bowel gas pattern is unremarkable. There are no dilated loops of small bowel to suggest an obstruction. There is a 2 mm stone within the lower pole of the right kidney, unchanged. There is also a punctate stone within the lower pole of the left kidney. Stable nonspecific punctate calcifications in the deep pelvis. No bladder calculi. L5-S1 posterior decompression and fusion. No pneumoperitoneum or pneumatosis. IMPRESSION: Stable bilateral nephrolithiasis. Electronically signed by: Matthew Neff M.D. 02/12/2017 10:54 AM Dictated Date/Time: 02/12/2017 10:51 AM
[2017-02-12 14:46] VITALS: BP 109/71; PULSE 87; TEMP 36.6; O2SAT 98
[2017-02-12] MEDS ORDERED: CIPROFLOXACIN / D5W 400 MG in PREMIXED IN D5W 200 ML IV SCH ×2 (16:00→21:00)
--- NOTE | 2017-02-12 17:31 | Progress Note ---
Subjective Date of Service: February 12, 2017. Subjective Pt evaluation today including: conversation w/ patient, physical exam, lab review, review of studies, review of inpatient medication list Saw/examined the patient in room 412 She's doing well, no issues states that her left sided pain has resolved Problem List Medical Problems: (1) Left flank pain Status: Acute (2) Leukocytosis Status: Acute (3) Status: Acute (4) Pyelonephritis Status: Acute (5) UTI (urinary tract infection) Status: Acute Review of Systems Constitutional: No chills, No fever Abdomen: No nausea (resolved), No pain (L flank pain, resolved), No vomiting Medications Current Inpatient Medications Medications (Trade) Dose Ordered Sig/Yi Route Start Time Stop Time Status Last Admin Dose Admin Acetaminophen (Tylenol Tab) 650 mg Q4H PRN PO 02/12/17 01:45 03/14/17 01:44 Al Hydrox/Mg Hydrox/Simethicone (Maalox Max Susp) 15 ml Q4H PRN PO 02/12/17 01:45 03/14/17 01:44 02/12/17 11:58 15 ML Magnesium Hydroxide (Milk Of Magnesia Susp) 30 ml Q6H PRN PO 02/12/17 01:45 03/14/17 01:44 Polyethylene (Miralax Powder Packet) 17 gm DAILY PRN PO 02/12/17 01:45 03/14/17 01:44 Zolpidem Tartrate (Ambien Tab) 5 mg HSZ PRN PO 02/12/17 01:45 03/14/17 01:44 Ondansetron HCl 4 mg 4 mg Q6H PRN IV 02/12/17 01:45 03/14/17 01:44 02/12/17 10:59 4 MG Sodium Chloride (Nss 1000ml) 1,000 ml @ 100 mls/hr Q10H IV 02/12/17 01:45 03/14/17 01:44 02/12/17 11:00 100 MLS/HR Hydromorphone HCl (Dilaudid Inj) 1 mg Q4 PRN IV 02/12/17 01:45 02/26/17 01:44 02/12/17 11:02 1 MG Docusate Sodium (coLACE CAP) 100 mg BID PO 02/12/17 08:00 03/14/17 08:59 5/24/17 08:25 100 MG Tamsulosin HCl (Flomax Cap) 0.4 mg QAM PO 02/12/17 08:00 03/14/17 08:59 02/12/17 08:25 0.4 MG Oxycodone HCl (Roxicodone Immediate Rel Tab) 5 mg Q4H PRN PO 02/12/17 05:30 02/26/17 05:29 02/12/17 09:53 5 MG Miscellaneous Information (Order Awaiting Action) 1 ea QS N/A 02/12/17 08:00 03/14/17 07:59 Duloxetine HCl (Cymbalta Cap) 60 mg HS PO 02/12/17 21:00 03/14/17 20:59 Amitriptyline HCl 40 mg 40 mg HS PO 02/12/17 21:00 03/14/17 20:59 Ciprofloxacin/ Dextrose/Prmx (Cipro / D5W/ Premixed D5W) 200 ml @ 100 mls/hr Q12H IV 02/12/17 16:00 02/17/17 15:59 Objective Vital Signs Date Time Temp Pulse Resp B/P Pulse Ox O2 Delivery O2 Flow Rate FiO2 02/12/17 14:46 36.6 87 18 109/71 98 02/12/17 08:30 Room Air 02/12/17 07:38 36.5 92 16 106/70 97 Room Air 02/12/17 02:00 36.6 102 16 129/91 97 Room Air 02/12/17 01:50 36.6 102 16 129/91 97 Room Air 02/12/17 01:30 101 16 118/77 98 02/11/17 23:30 37.4 110 20 141/105 100 Room Air 02/11/17 22:01 108 18 117/81 97 Room Air 02/11/17 20:21 37.1 118 18 126/80 94 Room Air Physical Exam General Appearance: no apparent distress Abdomen: normal bowel sounds, non tender, soft, no organomegaly, no pulsatile mass Laboratory Results Last 24 Hours Test 02/11/17 20:50 02/11/17 22:00 02/12/17 05:43 White Blood Count 19.21 K/uL 12.84 K/uL Red Blood Count 5.20 M/uL 4.20 M/uL Hemoglobin 14.9 g/dL 12.4 g/dL Hematocrit 44.9 % 36.9 % Mean Corpuscular Volume 86.3 fL 87.9 fL Mean Corpuscular Hemoglobin 28.7 pg 29.5 pg Mean Corpuscular Hemoglobin Concent 33.2 g/dl 33.6 g/dl Platelet Count 382 K/uL 283 K/uL Mean Platelet Volume 9.6 fL 9.6 fL Neutrophils (%) (Auto) 66.7 % Lymphocytes (%) (Auto) 23.2 % Monocytes (%) (Auto) 8.0 % Eosinophils (%) (Auto) 1.6 % Basophils (%) (Auto) 0.2 % Neutrophils # (Auto) 12.81 K/uL Lymphocytes # (Auto) 4.46 K/uL Monocytes # (Auto) 1.53 K/uL Eosinophils # (Auto) 0.31 K/uL Basophils # (Auto) 0.04 K/uL RDW Standard Deviation 39.1 fL 40.4 fL RDW Coefficient of Variation 12.3 % 12.6 % Immature Granulocyte % (Auto) 0.3 % Immature Granulocyte # (Auto) 0.06 K/uL Red Blood Cell Morphology Unremarkable Urine Color YELLOW YELLOW Urine Appearance CLOUDY CLOUDY Urine pH 6.0 6.0 Urine Specific [place] 1.013 1.012 Urine Protein 3+ 3+ Urine Glucose (UA) NEG NEG Urine Ketones NEG NEG Urine Occult Blood 3+ 3+ Urine Nitrite NEG NEG Urine Bilirubin NEG NEG Urine Urobilinogen NEG NEG Urine Leukocyte Esterase MODERATE MODERATE Urine WBC (Auto) >30 /hpf >30 /hpf Urine RBC (Auto) >30 /hpf >30 /hpf Urine Hyaline Casts (Auto) 1-5 /lpf 0 /lpf Urine Epithelial Cells (Auto) 10-20 /lpf 0-5 /lpf Urine Bacteria (Auto) 1+ 3+ Urine Test NEG Sodium Level 140 mmol/L 143 mmol/L Potassium Level 3.9 mmol/L 3.7 mmol/L Chloride Level 105 mmol/L 109 mmol/L Carbon Dioxide Level 26 mmol/L 26 mmol/L Anion Gap 9.0 mmol/L 8.0 mmol/L Blood Urea Nitrogen 7 mg/dl 5 mg/dl Creatinine 0.79 mg/dl 0.63 mg/dl Est Creatinine Clear Calc Drug Dose 91.6 ml/min 114.8 ml/min Estimated GFR () 122.3 146.5 Estimated GFR (Non- 105.5 126.4 BUN/Creatinine Ratio 8.6 7.3 Random Glucose 88 mg/dl 127 mg/dl Calcium Level 8.6 mg/dl 7.6 mg/dl Total Bilirubin 0.5 mg/dl Direct Bilirubin mg/dl Aspartate Amino Transf (AST/SGOT) 19 U/L Alanine Aminotransferase (ALT/SGPT) 21 U/L Alkaline Phosphatase 77 U/L Total Protein 7.8 gm/dl Albumin 3.5 gm/dl Lipase 69 U/L Chemistry Specimen Hemolysis Assessment and Plan This is a 21 year old female with a PMH of depression/anxiety presented with L sided flank tenderness L sided nephrolithiasis Urinary Tract Infection bilateral non-obstructing stones on KUB patient states the pain has subsided urine culture + for gram negative bacilli she had a urine culture on 02/10; which grew ceftriaxone resistant Enterobacter aerogenes switched abx. to Cipro will await urology input prior to discharge Depression continue home medications DVT ppx ambulation FULL CODE
--- NOTE | 2017-02-12 17:58 | Urology Consultation ---
History General Date of Service: February 12, 2017. Chief Complaint: uti and kidney stones Primary Care Physician: Sonido Viramontes M.D. Pt seen a urologist before?: No History of Present Illness I am asked by Dr Fowler to evaluate and treat uti. She also has stones. She is [facility] with [facility] and [facility] with no renal pathology to explain the flank pain. She does not appear to have any evidence for pyelonephrotis. She is on ceftriaxone and cipro and is improving. No real fevers, but a 37.4 C yesterday. She has had utis before and stones before. Imaging Imaging: CT, Ultrasound Laboratory Results Past 24 Hours Test 02/11/17 20:50 02/11/17 22:00 02/12/17 05:43 Range/Units White Blood Count 19.21 12.84 4.8-10.8 K/uL Red Blood Count 5.20 4.20 4.2-5.4 M/uL Hemoglobin 14.9 12.4 12.0-16.0 g/dL Hematocrit 44.9 36.9 37-47 % Mean Corpuscular Volume 86.3 87.9 80-100 fL Mean Corpuscular Hemoglobin 28.7 29.5 25-34 pg Mean Corpuscular Hemoglobin Concent 33.2 33.6 32-36 g/dl Platelet Count 382 283 130-400 K/uL Mean Platelet Volume 9.6 9.6 7.4-10.4 fL Neutrophils (%) (Auto) 66.7 % Lymphocytes (%) (Auto) 23.2 % Monocytes (%) (Auto) 8.0 % Eosinophils (%) (Auto) 1.6 % Basophils (%) (Auto) 0.2 % Neutrophils # (Auto) 12.81 1.4-6.5 K/uL Lymphocytes # (Auto) 4.46 1.2-3.4 K/uL Monocytes # (Auto) 1.53 0.11-0.59 K/uL Eosinophils # (Auto) 0.31 0-0.5 K/uL Basophils # (Auto) 0.04 0-0.2 K/uL RDW Standard Deviation 39.1 40.4 36.4-46.3 fL RDW Coefficient of Variation 12.3 12.6 11.5-14.5 % Immature Granulocyte % (Auto) 0.3 % Immature Granulocyte # (Auto) 0.06 0.00-0.02 K/uL Red Blood Cell Morphology Unremarkable Urine Color YELLOW YELLOW Urine Appearance CLOUDY CLOUDY CLEAR Urine pH 6.0 6.0 4.5-7.5 Urine Specific [place] 1.013 1.012 1.000-1.030 Urine Protein 3+ 3+ NEG Urine Glucose (UA) NEG NEG NEG Urine Ketones NEG NEG NEG Urine Occult Blood 3+ 3+ NEG Urine Nitrite NEG NEG NEG Urine Bilirubin NEG NEG NEG Urine Urobilinogen NEG NEG NEG Urine Leukocyte Esterase MODERATE MODERATE NEG Urine WBC (Auto) >30 >30 0-5 /hpf Urine RBC (Auto) >30 >30 0-4 /hpf Urine Hyaline Casts (Auto) 1-5 0 0-5 /lpf Urine Epithelial Cells (Auto) 10-20 0-5 0-5 /lpf Urine Bacteria (Auto) 1+ 3+ NEG Urine Test NEG NEG Sodium Level 140 143 136-145 mmol/L Potassium Level 3.9 3.7 3.5-5.1 mmol/L Chloride Level 105 109 98-107 mmol/L Carbon Dioxide Level 26 26 21-32 mmol/L Anion Gap 9.0 8.0 3-11 mmol/L Blood Urea Nitrogen 7 5 7-18 mg/dl Creatinine 0.79 0.63 0.60-1.20 mg/dl Est Creatinine Clear Calc Drug Dose 91.6 114.8 ml/min Estimated GFR () 122.3 146.5 Estimated GFR (Non- 105.5 126.4 BUN/Creatinine Ratio 8.6 7.3 10-20 Random Glucose 88 127 70-99 mg/dl Calcium Level 8.6 7.6 8.5-10.1 mg/dl Total Bilirubin 0.5 0.2-1 mg/dl Direct Bilirubin 0-0.2 mg/dl Aspartate Amino Transf (AST/SGOT) 19 15-37 U/L Alanine Aminotransferase (ALT/SGPT) 21 12-78 U/L Alkaline Phosphatase 77 45-117 U/L Total Protein 7.8 6.4-8.2 gm/dl Albumin 3.5 3.4-5.0 gm/dl Lipase 69 73-393 U/L Chemistry Specimen Hemolysis Microbiology Results 5/23/17 Urine Culture - Preliminary, Resulted Gram Negative Bacilli Labs were reviewed and are within normal limits unless listed below. Labs are available in the chart and at [facility] Problem List Medical Problems: (1) Left flank pain Status: Acute (2) Leukocytosis Status: Acute (3) Status: Acute (4) Pyelonephritis Status: Acute (5) UTI (urinary tract infection) Status: Acute Past History anxiety, kidney stones Past Surgical History: orthopedic surgery (back) Family History FH: gallbladder disease Hypertension Kidney disease Kidney stones Social History Hx Tobacco Use In Past Year?: No Smoking: non-smoker Marital status: single Housing status: lives with family Occupation status: employed Immunizations History of Influenza Vaccine: Yes History of Tetanus Vaccine?: Yes History of Pneumococcal: No History of Hepatitis B Vaccine: No Allergies Coded Allergies: Codeine (Verified Allergy, Unknown, HIVES, 02/10/17) tolerated hydrocodone/acetaminophen during 2015 admission Medications Home Medications: Home Meds and Scripts Medications Dose Route/Sig Max Daily Dose Days Date Category Dose Instructions Roxicodone Ir (Oxycodone HCl) 5 Mg Tab 1-2 Tab PO Q4H PRN 02/10/17 Rx For Initial Treatment Control Pills (Miscellaneous) Tab 1 Tab PO DAILY 02/10/17 Reported Amitriptyline HCl 10 Mg Tab 10 Mg PO QID 02/10/17 Reported Cymbalta (Duloxetine Hcl) 60 Mg Cap 60 Mg PO DAILY 02/10/17 Reported Inpatient Medications: Current Inpatient Medications Medications (Trade) Dose Ordered Sig/Yi Route Start Time Stop Time Status Last Admin Dose Admin Acetaminophen (Tylenol Tab) 650 mg Q4H PRN PO 02/12/17 01:45 03/14/17 01:44 Al Hydrox/Mg Hydrox/Simethicone (Maalox Max Susp) 15 ml Q4H PRN PO 02/12/17 01:45 03/14/17 01:44 02/12/17 11:58 15 ML Magnesium Hydroxide (Milk Of Magnesia Susp) 30 ml Q6H PRN PO 02/12/17 01:45 03/14/17 01:44 Polyethylene (Miralax Powder Packet) 17 gm DAILY PRN PO 02/12/17 01:45 03/14/17 01:44 Zolpidem Tartrate (Ambien Tab) 5 mg HSZ PRN PO 02/12/17 01:45 03/14/17 01:44 Ondansetron HCl 4 mg 4 mg Q6H PRN IV 02/12/17 01:45 03/14/17 01:44 02/12/17 10:59 4 MG Sodium Chloride (Nss 1000ml) 1,000 ml @ 100 mls/hr Q10H IV 02/12/17 01:45 03/14/17 01:44 02/12/17 11:00 100 MLS/HR Hydromorphone HCl (Dilaudid Inj) 1 mg Q4 PRN IV 02/12/17 01:45 02/26/17 01:44 02/12/17 11:02 1 MG Docusate Sodium (coLACE CAP) 100 mg BID PO 02/12/17 08:00 03/14/17 08:59 02/12/17 08:25 100 MG Tamsulosin HCl (Flomax Cap) 0.4 mg QAM PO 02/12/17 08:00 03/14/17 08:59 02/12/17 08:25 0.4 MG Oxycodone HCl (Roxicodone Immediate Rel Tab) 5 mg Q4H PRN PO 02/12/17 05:30 02/26/17 05:29 02/12/17 09:53 5 MG Miscellaneous Information (Order Awaiting Action) 1 ea QS N/A 02/12/17 08:00 03/14/17 07:59 02/12/17 16:00 1 EA Duloxetine HCl (Cymbalta Cap) 60 mg HS PO 02/12/17 21:00 03/14/17 20:59 Amitriptyline HCl 40 mg 40 mg HS PO 02/12/17 21:00 03/14/17 20:59 Ciprofloxacin/ Dextrose/Prmx (Cipro / D5W/ Premixed D5W) 200 ml @ 100 mls/hr Q12H IV 02/12/17 16:00 02/17/17 15:59 02/12/17 17:25 100 MLS/HR Review of Systems Review of Systems Constitutional: + chills, + fever Neurological: No dizzy Gastrointestinal: + abdominal pain, + nausea Cardiovascular: No palpitations Female : + frequent urination, + infections, + kidney stones, + painful urination Physical Exam Vital Signs: Vital Signs Past 12 Hours Date Time Temp Pulse Resp B/P Pulse Ox O2 Delivery O2 Flow Rate FiO2 02/12/17 14:46 36.6 87 18 109/71 98 02/12/17 08:30 Room Air 02/12/17 07:38 36.5 92 16 106/70 97 Room Air Physical Exam: General Appearance: WD/WN, no apparent distress, + thin Eyes: bilateral eyes normal inspection ENT: hearing grossly normal Neck: trachea midline Respiratory/Chest: no respiratory distress, no accessory muscle use Neurologic/Psychiatric: alert, normal mood/affect, oriented x 3 Skin: normal color, warm/dry, no rash Assessment & Plan Assessment & Plan uti seems like a simple cystitis I think 5 days total is adequate abt coverage no radiographic evidence for pyelonephritis x 2 . her stones are very small 1mm on left and 2mm on right so do not need surgical management. I encouraged her to drink more water and cut salt in her diet. No outpatient follow up needed seems constipated on ct scan , perhaps needs prunes daily to improve transit time.
--- NOTE | 2017-02-12 18:09 | Discharge Instructions ---
Discharge Instructions Date of Service February 12, 2017. Admission Reason for Admission: UTI Discharge Discharge Diagnosis / Problem: Cystitis Discharge Goals Goal(s): Decrease discomfort, Improve function, Diagnostic testing, Therapeutic intervention Activity Recommendations Activity Limitations: resume your previous activity . Instructions / Follow-Up Instructions / Follow-Up Please follow-up with Dr. Gary on February 19 at 2:45PM You will be discharged on Cipro (antibiotic) for 5 days Current Hospital Diet Patient's current hospital diet: Regular Diet Discharge Diet Recommended Diet: Regular Diet Pending Studies Studies pending at discharge: no Medical Emergencies . Who to Call and When: Medical Emergencies: If at any time you feel your situation is an emergency, please call 911 immediately. . Non-Emergent Contact Non-Emergency issues call your: Primary Care Provider . . "Provider Documentation" section prepared by Mathew Martin. . VTE Core Measure Inpt VTE Proph given/why not?: Jayant Lewis, [facility]
[2017-02-12] MEDS ORDERED: CIPR-255 PO (18:10)
--- NOTE | 2017-02-12 18:12 | Discharge Summary ---
Discharge Summary Date of Service February 12, 2017. Discharge Summary Admission Date: February 12, 2017 at 00:58 Discharge Date: February 12, 2017 Discharge Disposition: Home Principal Diagnosis: Acute Cystitis Medication Reconciliation New Medications: Ciprofloxacin Hcl (Cipro) 500 Mg Tab 500 MG PO BID for 5 Days, #10 TAB Continued Medications: Amitriptyline HCl (Amitriptyline HCl) 10 Mg Tab 10 MG PO QID Control Pills ( Control Pills) Tab 1 TAB PO DAILY, TAB Duloxetine Hcl (Cymbalta) 60 Mg Cap 60 MG PO DAILY, CAP Discontinued Medications: Oxycodone Immediate Rel Tab (Roxicodone Ir) 5 Mg Tab 1-2 TAB PO Q4H PRN for Severe Pain, #15 TAB For Initial Treatment Admission Information HPI (per Admitting provider): The patient is a 21 year old female who presents to the Emergency Room with complaints of left flank pain Her symptom started yesterday -radiating to lower abdomen to back has nausea no episode of vomiting chills and subjective fever at home noticed hematuria was at ED yesterday for similar symptom CT abdomen /pelvis showed nonobstructing renal calculi. She has history of prior kidney stone and her symptoms are similar to prior episode in the ER pt was found to be , tachycardic, WBC elevated 19 K UA +ve of leukocyte esterase Renal USG negative for hydronephrosis Physical Exam (per Admitting): General Appearance: no apparent distress Eyes: sclerae normal Respiratory/Chest: lungs clear, normal breath sounds, no respiratory distress Cardiovascular: regular rate, rhythm Abdomen/GI: non tender, soft Extremities/Musculoskelatal: no pedal edema Neurologic/Psych: no motor/sensory deficits, alert, normal mood/affect Skin: normal color, warm/dry, no rash Hospital Course This is a 21 year old female with a PMH of depression/anxiety presented with L sided flank tenderness L sided nephrolithiasis Urinary Tract Infection bilateral non-obstructing stones on KUB patient states the pain has subsided urine culture + for gram negative bacilli she had a urine culture on 02/10; which grew ceftriaxone resistant Enterobacter aerogenes switched abx. to Cipro will await urology input prior to discharge Depression continue home medications DVT ppx ambulation FULL CODE Total time spent on discharge = 20 minutes This includes examination of the patient, discharge planning, medication reconciliation, and communication with other providers. Discharge Instructions Please follow-up with Dr. Gary on February 19 at 2:45PM You will be discharged on Cipro (antibiotic) for 5 days
[2017-02-12 19:06] VITALS: BP 109/71; PULSE 87; TEMP 36.6; O2SAT 98
[2017-02-12] MEDS ORDERED: CEFTRIAXONE SOD INJ 1 GM in DEXTROSE 5% ADD-VANTAGE 50ML 50 ML IV SCH (23:00)
[2017-02-13] MEDS ORDERED: AMITRIPTYLINE HCL 10 MG TAB PO SCH (08:00)
[2017-07-06] MEDS ORDERED: AMT10 PO (00:42)
[2017-07-06] MEDS ORDERED: BCPILLS PO (10:03)
[2017-07-06] MEDS ORDERED: DULO60CA44 PO (10:03)
[2017-07-29] MEDS ORDERED: ONDA4TAB10 SL (16:50)
== END 2017-02-12 19:50 | disposition home or self-care (01) | DRG 690 ==
LOC: ENRESERVTM → ENRESERVDT → C.EDB 20:19 → C.4E 02-12 00:58
PROVIDERS: ADMIT Hospitalist; ATTEND Family Medicine
DX: N30.01 Acute cystitis with hematuria (principal); B96.89 Other specified bacterial agents as the cause of diseases classified elsewhere; Z16.19 Resistance to other specified beta lactam antibiotics; N20.0 Calculus of kidney; F32.9 Major depressive disorder, single episode, unspecified; Z79.899 Other long term (current) drug therapy; Z87.442 Personal history of urinary calculi; Z84.1 Family history of disorders of kidney and ureter; Z82.49 Family history of ischemic heart disease and other diseases of the circulatory system

== ENCOUNTER 2017-03-20 23:42 | Emergency (ER) | payer OTHER ==
[~2017-03-20] VITALS: Ht 160 cm; Wt 58.3 kg
[~2017-03-20 23:42] MED LIST changes: +BCPILLS PO; +CIPR-255 PO; +DULO60CA44 PO; -OXYC1TAB3 PO
[2017-03-20 23:43] VITALS: TEMP 36.8; Ht 160 cm; Wt 58.3 kg
[2017-03-20] MEDS ORDERED: DEXAMETHASONE SOD INJ 4 MG/ML VIAL IV STA (23:57)
[2017-03-20] MEDS ORDERED: DiphenhydrAMINE HCL 50 MG/ML VIAL IV STA (23:57)
[2017-03-20] MEDS ORDERED: SODIUM CHLORIDE 0.9% 1000ML 1,000 ML IV STA (23:57)
[2017-03-20] MEDS ORDERED: FAMOTIDINE 20MG/102 ML D5W IV STA (23:58)
[2017-03-21 00:25] VITALS: O2SAT 100
[2017-03-21 00:28] LABS: BASO % 0.3 %; BASO ABS # 0.03 K/uL (0-0.2); COMPLETE YES; EOS % 2.4 %; HEMATOCRIT 47.5 % (37-47); IG% 0.2 %; LYMPH % 34.6 %; LYMPH ABS # 3.39 K/uL (1.2-3.4); MEAN CELL VOLUME 86.1 fL (80-100); MEAN CORPUSCULAR HEMOGLOBIN 29.5 pg (25-34); MEAN CORPUSCULAR HGB CONC 34.3 g/dl (32-36); MEAN PLATELET VOLUME 9.6 fL (7.4-10.4); MONO % 4.9 %; NEUT % 57.6 %; PLATELET COUNT 371 K/uL (130-400); RED BLOOD COUNT 5.52 M/uL (4.2-5.4); WHITE BLOOD COUNT 9.81 K/uL (4.8-10.8)
[2017-03-21] MEDS ORDERED: AMT10 PO (00:42)
[2017-03-21 00:47] LABS: BUN/CREATININE RATIO 16.1 (10-20); CALCIUM 9.6 mg/dl (8.5-10.1); CREATININE 0.82 mg/dl (0.60-1.20); POTASSIUM 3.5 mmol/L (3.5-5.1)
[2017-03-21 00:52] LABS: PREG INTERNAL NEGATIVE QC NEG CLEAR BACKGROUND; PREG INTERNAL POSITIVE QC POS CONTROL LINE
[2017-03-21] MEDS ORDERED: ONDANSETRON INJ 2 MG/ML 2 ML VIAL IV STA (01:19)
[2017-03-21 01:27] LABS: URINE APPEARANCE CLEAR (CLEAR); URINE BILIRUBIN NEG (NEG); URINE COLOR YELLOW; URINE NITRITE NEG (NEG); URINE SPECIFIC GRAVITY 1.012 (1.000-1.030); UROBILINOGEN NEG (NEG); ZZUR CULT IF INDIC CLEAN CATCH NO
[2017-03-21 01:30] LABS: MANUAL MICROSCOPIC REQUIRED? NO; REVIEW REQ? NO
[2017-03-21] MEDS ORDERED: EPINEPHRINE ADULT AUTO-INJECT 0.3 MG SYR IM STA (01:48)
[2017-03-21] MEDS ORDERED: PRED50TA PO (01:58)
[2017-03-21 02:09] VITALS: BP 119/80; PULSE 82; O2SAT 99
--- NOTE | 2017-03-21 02:55 | EMERGENCY ROOM VISIT NOTE ---
History Report prepared by Rosa: Jose Mckeon Under the Supervision of: Dr. Trell Youngblood M.D. First contact with patient: 23:49 Chief Complaint: ALLERGIC REACTION Stated Complaint: RASH, SWELLING History of Present Illness The patient is a 21 year old female who presents to the Emergency Room with complaints of a constant, global rash beginning 14 hours ago. The patient states that she took Pamprin and developed a rash. She reports that 12 hours ago her symptoms worsened. The patient notes that she took Benadryl, but her symptoms did not go down. She states that her last dose of Benadryl was around 4 hours ago. The patient reports that she is experiencing itchiness and edema to the skin, nausea, and chest tightness. She notes that she is allergic to codeine, and she breaks out into the hives. Pt denies LOC, headache, fevers, chills, diaphoresis, visual changes, neck pain, breathing difficulties, vomiting , abdominal pain, back pain, melena, hematochezia, urinary symptoms, numbness, weakness, lymphadenopathy, or other complaints. She notes that she currently has kidney stones, and her kidneys were hurting yesterday, but not currently. Source of History: patient Onset: 14 hours ago Position: other (global) Quality: other (rash) Timing: constant Associated Symptoms: + chest pain, + nausea Note: Associated symptoms: itchiness and edema to the skin Review of Systems See HPI for pertinent positives and negatives. A total of ten systems were reviewed and were otherwise negative. Past Medical & Surgical Medical Problems: (1) 35 to 36 weeks gestation of (2) Abdominal pain (3) Abdominal pain (4) Constipation (5) contractions, (6) False labor after 37 completed weeks of gestation (7) Flank pain (8) Flank pain (9) Hydroureteronephrosis (10) Irregular contractions (11) Kidney stone complicating (12) Knee contusion (13) labor (14) Nausea (15) Ovarian cyst (16) Ovarian cyst (17) with 29 completed weeks gestation (18) CONTRACTIONS (19) Right flank pain (20) Uterine contractions (21) Vaginal bleeding Surgical Problems: (1) History of appendectomy (2) History of back surgery Family History Cancer Diabetes mellitus FH: gallbladder disease Hypertension Kidney disease Kidney stones Social History Smoking Status: Former Smoker Alcohol Use: none Drug Use: none Marital Status: single Housing Status: lives with family Occupation Status: employed Current/Historical Medications Scheduled Amitriptyline HCl (Amitriptyline HCl), 40 MG PO HS Control Pills ( Control Pills), 1 TAB PO DAILY Duloxetine Hcl (Cymbalta), 60 MG PO DAILY Prednisone (Prednisone), 50 MG PO DAILY Allergies Coded Allergies: Codeine (Verified Allergy, Unknown, HIVES, 02/10/17) tolerated hydrocodone/acetaminophen during 2014 admission Physical Exam Vital Signs Date Time Temp Pulse Resp B/P (MAP) Pulse Ox O2 Delivery O2 Flow Rate FiO2 03/21/17 02:09 82 16 119/80 99 03/21/17 00:25 98 16 138/92 99 Room Air 03/21/17 00:25 100 Room Air 03/21/17 00:25 100 Room Air 03/21/17 00:20 98 03/20/17 23:43 36.8 96 20 158/107 96 Room Air Physical Exam GENERAL: Awake, alert, well-appearing, in no distress HENT: Normocephalic, atraumatic. Oropharynx unremarkable. Facial edema. EYES: Normal conjunctiva. Sclera non-icteric. NECK: Supple. No nuchal rigidity. FROM. No JVD. RESPIRATORY: Clear to auscultation. CARDIAC: Boarder-line tachycardic rate, normal rhythm. Extremities warm and well perfused. Pulses equal. ABDOMEN: Soft, non-distended. No tenderness to palpation. No rebound or guarding. No masses. RECTAL: Deferred. MUSCULOSKELETAL: Chest examination reveals no tenderness. The back is symmetrical on inspection without obvious abnormality. There is no CVA tenderness to palpation. No joint edema. LOWER EXTREMITIES: Calves are equal size bilaterally and non-tender. No edema. No discoloration. NEURO: Normal sensorium. No sensory or motor deficits noted. SKIN: Diffuse erythema to the trunk face and upper extremities. Medical Decision & Procedures Laboratory Results 03/21/17 00:20 Red Blood Count 5.52, Mean Corpuscular Volume 86.1, Mean Corpuscular Hemoglobin 29.5, Mean Corpuscular Hemoglobin Concent 34.3, Mean Platelet Volume 9.6, Neutrophils (%) (Auto) 57.6, Lymphocytes (%) (Auto) 34.6, Monocytes (%) (Auto) 4.9, Eosinophils (%) (Auto) 2.4, Basophils (%) (Auto) 0.3, Neutrophils # (Auto) 5.65, Lymphocytes # (Auto) 3.39, Monocytes # (Auto) 0.48, Eosinophils # (Auto) 0.24, Basophils # (Auto) 0.03 03/21/17 00:20 Test 03/21/17 00:20 03/21/17 01:10 White Blood Count 9.81 K/uL (4.8-10.8) Red Blood Count 5.52 M/uL (4.2-5.4) Hemoglobin 16.3 g/dL (12.0-16.0) Hematocrit 47.5 % (37-47) Mean Corpuscular Volume 86.1 fL (80-100) Mean Corpuscular Hemoglobin 29.5 pg (25-34) Mean Corpuscular Hemoglobin Concent 34.3 g/dl (32-36) Platelet Count 371 K/uL (130-400) Mean Platelet Volume 9.6 fL (7.4-10.4) Neutrophils (%) (Auto) 57.6 % Lymphocytes (%) (Auto) 34.6 % Monocytes (%) (Auto) 4.9 % Eosinophils (%) (Auto) 2.4 % Basophils (%) (Auto) 0.3 % Neutrophils # (Auto) 5.65 K/uL (1.4-6.5) Lymphocytes # (Auto) 3.39 K/uL (1.2-3.4) Monocytes # (Auto) 0.48 K/uL (0.11-0.59) Eosinophils # (Auto) 0.24 K/uL (0-0.5) Basophils # (Auto) 0.03 K/uL (0-0.2) RDW Standard Deviation 39.6 fL (36.4-46.3) RDW Coefficient of Variation 12.5 % (11.5-14.5) Immature Granulocyte % (Auto) 0.2 % Immature Granulocyte # (Auto) 0.02 K/uL (0.00-0.02) Anion Gap 6.0 mmol/L (3-11) Est Creatinine Clear Calc Drug Dose 88.2 ml/min Estimated GFR () 116.9 Estimated GFR (Non- 100.9 BUN/Creatinine Ratio 16.1 (10-20) Calcium Level 9.6 mg/dl (8.5-10.1) Human Chorionic Gonadotropin, Qual NEG (NEG) Urine Color YELLOW Urine Appearance CLEAR (CLEAR) Urine pH 6.0 (4.5-7.5) Urine Specific Willis 1.012 (1.000-1.030) Urine Protein NEG (NEG) Urine Glucose (UA) NEG (NEG) Urine Ketones NEG (NEG) Urine Occult Blood NEG (NEG) Urine Nitrite NEG (NEG) Urine Bilirubin NEG (NEG) Urine Urobilinogen NEG (NEG) Urine Leukocyte Esterase NEG (NEG) Laboratory results reviewed by me Medications Administered Medications (Trade) Dose Ordered Sig/Yi Route Start Time Stop Time Status Last Admin Dose Admin Sodium Chloride 1,000 ml @ 999 mls/hr Q1H1M STAT IV 03/20/17 23:57 03/21/17 00:57 DC 03/20/17 23:57 999 MLS/HR Diphenhydramine HCl (Benadryl Inj) 50 mg NOW STAT IV 03/20/17 23:57 03/21/17 00:00 DC 03/21/17 00:11 50 MG Dexamethasone Sodium Phosphate (Decadron Inj) 10 mg NOW STAT IV 03/20/17 23:57 03/21/17 00:00 DC 03/21/17 00:11 10 MG Famotidine (Pepcid 20mg/100 ml) 20 mg ONE STAT IV 03/20/17 23:58 03/20/17 23:59 DC 03/21/17 00:10 20 MG Ondansetron HCl (Zofran Inj) 4 mg NOW STAT IV 03/21/17 01:19 03/21/17 01:20 DC 03/21/17 01:22 4 MG Epinephrine (Epipen) 0.3 mg NOW STAT IM 03/21/17 01:48 03/21/17 01:49 DC 03/21/17 02:04 0.3 MG ED Course 2356: The patient was evaluated in room B12B. A complete history and physical exam was performed. 7: Ordered Decadron Inj 10mg IV, Benadryl Inj 50mg IV, Sodium Chloride 1000 ml @ 999 mls/hr IV 2358: Ordered Famotidine 20mg IV 0032: I reevaluated the patient and the itching is resolved. The face is less red, and the lips are less swollen. 0118: I reevaluated the patient, and the erythema is resolved. Her lips are no longer swollen. She is still a little queazy and asked for medication. 0119: Ordered Zofran Inj 4mg IV 0146: I reevaluated the patient. Discussed results and discharge instructions: she verbalized understanding and agreement. The patient is ready for discharge. 0148: Ordered Epinephrine 0.3mg IM Medical Decision Medication Reconciliation: I attest that I have personally reviewed the patient' s current medication list Blood pressure screening: Patient was found to have an elevated blood pressure and was referred to their primary doctor for recheck and further treatment. Prior records/ancillary studies reviewed. Triage Nursing notes reviewed and agree them. Additional history obtained from her mother. The patient's history was concerning for possible allergic reaction. Differential diagnosis: Etiologies such as allergic reaction, anaphylaxis, urticaria, Hearn-Brigido syndrome, toxic epidermal necrolysis, erythema multiforme, cellulitis, as well as others were entertained. Physical examination: As above. ER treatment provided: Continuous cardiac monitoring Benadryl 50 mg IV Pepcid 20 mg IV Decadron 10 mg IV On reassessment the patient felt better. EpiPen given to go. Diagnostic interpretation by me: The labs revealed unremarkable CBC chemistry and urinalysis Imaging studies: Deferred It appears the patient had an allergic reaction. The above treatment did well to reverse the symptoms. After prolonged monitoring and frequent reassessments the patient did very well and symptoms resolved. She will avoid the medication and its components.I gave my usual and customary discussion regarding this issue. By the evaluation outlined above emergent etiologies such as airway compromise, Hearn-Brigido syndrome, toxic epidermal necrolysis, erythema multiforme, cellulitis, as well as others were deemed relatively unlikely. The patient and mother were informed about the findings as listed above. All questions were answered and they were pleased with the treatment. Return instructions were outlined and the patient was discharged in stable condition. Outpatient prescription management: EpiPen prednisone Referral: The patient was referred back to her primary care physician for follow-up in 2- 3 days for a recheck of the current condition. Impression Primary Impression: Allergic reaction Scribe Attestation The scribe's documentation has been prepared under my direction and personally reviewed by me in its entirety. I confirm that the note above accurately reflects all work, treatment, procedures, and medical decision making performed by me. Departure Information Dispostion Home / Self-Care Prescriptions Prednisone (Prednisone) 50 Mg Tab 50 MG PO DAILY for 3 Days, #3 TAB Prov: Trell Youngblood MD 03/21/17 Referrals Sonido Viramontes M.D. (PCP) Forms HOME CARE DOCUMENTATION FORM, IMPORTANT VISIT INFORMATION Patient Instructions My [facility] Additional Instructions ALLERGIC REACTION INSTRUCTIONS: Avoid all Pamprin, acetaminophen, aspirin and anti-inflammatory pain medications until following up as discussed. DO NOT drive, drink alcohol, operate machinery, or perform dangerous activities today. You were given medications in the ER that can affect your ability to safely function or operate a vehicle. Epi-Pen: Use one injection as instructed for severe allergic reactions associated with shortness of breath, difficulty breathing, or throat or tongue swelling. If you use this injection call 911 or proceed immediately to the nearest Emergency Room. Prednisone 50mg: Once daily until the prescription is finished. It is best to take this earlier in the day as some patients note occasional difficulty falling asleep when taken in the late evening. Diphenhydramine(Benadryl) 25mg: use 25 to 50 mg every six hours for swelling, itching, or hives. This medication is sedating and will cause drowsiness. Avoid alcohol, operating machinery or dangerous equipment, working on ladders or roofs, DRIVING, or situations where being under the influence may be dangerous. Zantac 75: Take two pills twice a day along with Benadryl as needed for swelling , itching, or hives. Most people know this for its affect on the stomach, but it also acts similar to, but less potent than Benadryl for allergic reactions. Both the Benadryl and the Zantac are available [id number]. Continue current medications. Return to the emergency department for worsening of your rash, swelling of your face, lips, tongue, or throat, difficulty breathing, vomiting, or as needed. Follow-up with your primary care physician in 2 to 3 days for a recheck of your current condition and to discuss allergy referral.
== END 2017-03-21 02:12 | disposition home or self-care (01) ==
LOC: C.EDB 23:43
DX: T78.40XA Allergy, unspecified, initial encounter (principal); X58.XXXA Exposure to other specified factors, initial encounter; Z80.9 Family history of malignant neoplasm, unspecified; Z83.3 Family history of diabetes mellitus; Z82.49 Family history of ischemic heart disease and other diseases of the circulatory system; Z84.1 Family history of disorders of kidney and ureter; Z87.891 Personal history of nicotine dependence; Z79.3 Long term (current) use of hormonal contraceptives; Z79.899 Other long term (current) drug therapy

== ENCOUNTER → 2017-04-02 | Outpatient (CLI) | payer OTHER ==
[~2017-04-02] MED LIST changes: -CIPR-255 PO
== END | disposition home or self-care (01) ==
LOC: C.PAPS 16:18
PROVIDERS: ATTEND Physician Assistant
DX: Z12.4 Encounter for screening for malignant neoplasm of cervix (principal)

== ENCOUNTER → 2017-04-16 | Outpatient (CLI) | payer OTHER ==
--- NOTE | 2017-04-16 12:45 | MAMMOGRAPHY REPORT ---
ULTRASOUND OF BOTH BREASTS: 04/16/2017 CLINICAL HISTORY: 21-year-old woman presents with a history of leaking milk from both axillae after d elivery, which was approximately 14 months ago. Palpable lumps persisted in both axillae after that time, but the left side has subsided. Patient currently has a persistent tender palpable lump in the right axilla. COMPARISON: No prior exams were available for comparison. FINDINGS: Targeted ultrasound was performed in the right axilla in the area of tender lump pointed o ut by the patient, and also in the left axilla for comparison purposes. In the right axilla, sonogra phically normal subcutaneous tissues are seen without a discrete solid or cystic mass. No definite f ocal skin thickening is appreciated. Within the left axilla, there is evidence of accessory breast t issue and several grouped anechoic benign simple cysts. This most likely represents focal fibrocysti c change within accessory breast tissue. The 2 largest cysts measure 6.7 mm. IMPRESSION: ACR BI-RADS CATEGORY 2: BENIGN 1. There is no targeted sonographic evidence of malignancy or other suspicious abnormality to explain the persistent pain and swelling in the right axilla. The patient symptoms could possibly be second amrita to accessory breast tissue with fluctuating cysts that are currently resolved. Nevertheless, cli nical follow-up is recommended. 2. There are grouped subcentimeter anechoic benign cysts within the left axilla, most likely represe nting accessory breast tissue and associated fibrocystic change. 3. There is no sonographic evidence of malignancy. These results and recommendations were discussed with the patient at the time of the exam. Ewelina Sneed M.D. ay/:04/16/2017 10:23:48 Attending Technologist: Justice CRUM(Xavier)(Rosario), [facility] Finance Professor: Dr. Ewelina Sneed, [facility] letter sent: Normal 1/2 BI-RADS Code: ACR BI-RADS Category 2: Benign
== END | disposition home or self-care (01) ==
LOC: C.MAMM 09:34
PROVIDERS: ATTEND Physician Assistant
DX: L72.3 Sebaceous cyst (principal)

== ENCOUNTER 2017-07-06 20:31 | Emergency (ER) | payer OTHER ==
[~2017-07-06] VITALS: Ht 170.2 cm; Wt 60.1 kg
[2017-07-06 20:38] VITALS: TEMP 36.9; Ht 170.2 cm; Wt 60.1 kg
[2017-07-06 21:04] LABS: BASO % 0.3 %; BASO ABS # 0.03 K/uL (0-0.2); COMPLETE YES; EOS % 1.6 %; HEMATOCRIT 43.7 % (37-47); IG% 0.2 %; LYMPH % 48.5 %; LYMPH ABS # 4.43 K/uL (1.2-3.4); MEAN CORPUSCULAR HEMOGLOBIN 29.6 pg (25-34); MEAN CORPUSCULAR HGB CONC 34.8 g/dl (32-36); MEAN PLATELET VOLUME 9.5 fL (7.4-10.4); MONO % 8.2 %; NEUT % 41.2 %; PLATELET COUNT 293 K/uL (130-400); RED BLOOD COUNT 5.14 M/uL (4.2-5.4); WHITE BLOOD COUNT 9.14 K/uL (4.8-10.8)
[2017-07-06 21:11] LABS: URINE APPEARANCE CLEAR (CLEAR); URINE BILIRUBIN NEG (NEG); URINE COLOR YELLOW; URINE NITRITE NEG (NEG); URINE PH 8.5 (4.5-7.5); URINE SPECIFIC GRAVITY 1.009 (1.000-1.030); UROBILINOGEN NEG (NEG); ZZUR CULT IF INDIC CLEAN CATCH NO
[2017-07-06 21:17] LABS: MANUAL MICROSCOPIC REQUIRED? NO; REVIEW REQ? NO
[2017-07-06 21:27] LABS: ALT/SGPT 23 U/L (12-78); BLOOD UREA NITROGEN 13 mg/dl (7-18); BUN/CREATININE RATIO 14.6 (10-20); CARBON DIOXIDE 27 mmol/L (21-32); CHLORIDE 103 mmol/L (98-107); CREATININE 0.87 mg/dl (0.60-1.20); GLUCOSE 95 mg/dl (70-99); POTASSIUM 4.1 mmol/L (3.5-5.1); SODIUM 136 mmol/L (136-145)
[2017-07-06 21:30] LABS: ALKALINE PHOSPHATASE 64 U/L (45-117); AST/SGOT 19 U/L (15-37)
[2017-07-06] MEDS ORDERED: SODIUM CHLORIDE 0.9% 1000ML 1,000 ML IV STA (21:35)
[2017-07-06] MEDS ORDERED: MoRPHine SULFATE 10 MG/ML CARP/VIAL IV STA (21:35)
[2017-07-06] MEDS ORDERED: ONDANSETRON INJ 2 MG/ML 2 ML VIAL IV STA ×2 (21:35→23:16)
--- NOTE | 2017-07-06 22:09 | DIAGNOSTIC IMAGING REPORT ---
CT OF THE ABDOMEN AND PELVIS WITHOUT CONTRAST CLINICAL HISTORY: Right flank pain. COMPARISON STUDY: CT of the abdomen and pelvis February 11, 2017 and [facility]UB February 12, 2017. TECHNIQUE: Axial images of the abdomen and pelvis were obtained without IV contrast. Images were reviewed in the axial, sagittal, and coronal planes. A dose lowering technique was utilized adhering to the principles of ALARA. FINDINGS: Note is made of a 3 mm calculus within the lower pole of the right kidney. A 2 mm left renal calculus is present. There are no ureteral calculi and there is no hydronephrosis. Evaluation of the remainder of the abdomen and pelvis is suboptimal on this unenhanced exam. The liver, spleen, adrenal glands and pancreas are unremarkable. There is no peripancreatic or pericholecystic infiltration. There is no biliary or pancreatic ductal dilatation. There is no evidence for a bowel obstruction. The appendix is surgically absent. Postoperative findings within the spine are noted. IMPRESSION: 1. Bilateral nephrolithiasis. No ureteral calculi or hydronephrosis. 2. No acute process within the abdomen or pelvis on unenhanced exam. No bowel obstruction. Status post appendectomy. Electronically signed by: Miguel Lester M.D. 07/06/2017 10:08 PM Dictated Date/Time: 07/06/2017 10:00 PM
[2017-07-06] MEDS ORDERED: OXYC1TAB3 PO (22:13)
[2017-07-06] MEDS ORDERED: KETOROLAC TROMETHAMINE 30 MG/ML VIAL IV STA (22:21)
--- NOTE | 2017-07-07 01:08 | EMERGENCY ROOM VISIT NOTE ---
History Report prepared by Rosa: Jose Mckeon Under the Supervision of: Dr. Michael Nicholson D.O. First contact with patient: 20:52 Chief Complaint: FLANK PAIN Stated Complaint: RT SIDE PAIN History of Present Illness The patient is a 21 year old female who presents to the Emergency Room with complaints of constant lower back pain starting two nights ago. The patient states her pain has started to wrap around the front of her right abdomen. Pain is sharp and stabbing in nature. Sitting up does improve the pain. She reports her discomfort is similar to her past kidney stones. The patient notes she has a history of two kidney stones. She states she has been experiencing constant nausea. The patient reports her last bowel movement was yesterday, and it was normal. She notes her last menstrual period was three weeks ago, and it was normal. The patient states she still has her gallbladder, but she has a history of an appendectomy. She denies vomiting, blood in urine, pain with urination, burning with urination, blood in stool, and any other medical problems. No chest pain or shortness of breath. Last menstrual period was 3 weeks ago. Source of History: patient Onset: two nights ago Position: back (lower) Timing: constant Associated Symptoms: + nausea, + abdominal pain, No vomiting Note: Denies: blood in urine, burning with urination, pain with urination, blood in stool. Review of Systems See HPI for pertinent positives & negatives. A total of 10 systems reviewed and were otherwise negative. Past Medical & Surgical Medical Problems: (1) 35 to 36 weeks gestation of (2) Abdominal pain (3) Abdominal pain (4) Constipation (5) contractions, (6) False labor after 37 completed weeks of gestation (7) Flank pain (8) Flank pain (9) Hydroureteronephrosis (10) Irregular contractions (11) Kidney stone complicating (12) Knee contusion (13) labor (14) Nausea (15) Ovarian cyst (16) Ovarian cyst (17) with 29 completed weeks gestation (18) CONTRACTIONS (19) Right flank pain (20) Uterine contractions (21) Vaginal bleeding Surgical Problems: (1) History of appendectomy (2) History of back surgery Family History Cancer Diabetes mellitus FH: gallbladder disease Hypertension Kidney disease Kidney stones Social History Smoking Status: Never Smoker Alcohol Use: none Drug Use: none Marital Status: single Housing Status: lives with family Occupation Status: employed Current/Historical Medications Scheduled Amitriptyline HCl (Amitriptyline HCl), 50 MG PO HS Control Pills ( Control Pills), 1 TAB PO DAILY Duloxetine Hcl (Cymbalta), 60 MG PO DAILY Scheduled PRN Oxycodone Ir (Roxicodone Ir), 1 TAB PO PRN UD PRN for Severe Pain Allergies Coded Allergies: Codeine (Verified Allergy, Unknown, HIVES, 02/10/17) tolerated hydrocodone/acetaminophen during 2015 admission Physical Exam Vital Signs Date Time Temp Pulse Resp B/P (MAP) Pulse Ox O2 Delivery O2 Flow Rate FiO2 07/06/17 23:13 84 18 122/88 98 Room Air 07/06/17 21:44 89 18 130/92 99 Room Air 07/06/17 20:38 36.9 98 16 143/97 97 Room Air Physical Exam GENERAL: Sitting up in bed, disheveled, mild distress EYE EXAM: normal conjunctiva OROPHARYNX: no exudate, no erythema, lips, buccal mucosa, and tongue normal and mucous membranes are moist NECK: supple, no nuchal rigidity, no adenopathy, non-tender LUNGS: Clear to auscultation. Normal chest wall mechanics HEART: no murmurs, S1 normal and S2 normal ABDOMEN: abdomen soft, minimal tenderness to right flank, normo-active bowel sounds, no masses, no rebound or guarding. BACK: Back is symmetrical on inspection and there is no deformity, no midline tenderness, no CVA tenderness. SKIN: no rashes and no bruising UPPER EXTREMITIES: upper extremities are grossly normal. LOWER EXTREMITIES: No pitting edema. NEURO EXAM: Normal sensorium, cranial nerves II-XII grossly intact, normal speech, no gross weakness of arms, no gross weakness of legs. Medical Decision & Procedures ER Provider Diagnostic Interpretation: Radiology results as stated below per my review and the radiologist's interpretation: Ultrasound of the right upper quadrant shows no signs of cholecystitis per stat radiology. CT OF THE ABDOMEN AND PELVIS WITHOUT CONTRAST CLINICAL HISTORY: Right flank pain. COMPARISON STUDY: CT of the abdomen and pelvis February 11, 2017 and [facility]UB February 12, 2017. TECHNIQUE: Axial images of the abdomen and pelvis were obtained without IV contrast. Images were reviewed in the axial, sagittal, and coronal planes. A dose lowering technique was utilized adhering to the principles of ALARA. FINDINGS: Note is made of a 3 mm calculus within the lower pole of the right kidney. A 2 mm left renal calculus is present. There are no ureteral calculi and there is no hydronephrosis. Evaluation of the remainder of the abdomen and pelvis is suboptimal on this unenhanced exam. The liver, spleen, adrenal glands and pancreas are unremarkable. There is no peripancreatic or pericholecystic infiltration. There is no biliary or pancreatic ductal dilatation. There is no evidence for a bowel obstruction. The appendix is surgically absent. Postoperative findings within the spine are noted. IMPRESSION: 1. Bilateral nephrolithiasis. No ureteral calculi or hydronephrosis. 2. No acute process within the abdomen or pelvis on unenhanced exam. No bowel obstruction. Status post appendectomy. Electronically signed by: Miguel Lester M.D. 07/06/2017 10:08 PM Dictated Date/Time: 07/06/2017 10:00 PM Laboratory Results 07/06/17 20:54 Red Blood Count 5.14, Mean Corpuscular Volume 85.0, Mean Corpuscular Hemoglobin 29.6, Mean Corpuscular Hemoglobin Concent 34.8, Mean Platelet Volume 9.5, Neutrophils (%) (Auto) 41.2, Lymphocytes (%) (Auto) 48.5, Monocytes (%) (Auto) 8.2, Eosinophils (%) (Auto) 1.6, Basophils (%) (Auto) 0.3, Neutrophils # (Auto) 3.76, Lymphocytes # (Auto) 4.43, Monocytes # (Auto) 0.75, Eosinophils # (Auto) 0.15, Basophils # (Auto) 0.03 07/06/17 20:54 Test 07/06/17 20:54 White Blood Count 9.14 K/uL (4.8-10.8) Red Blood Count 5.14 M/uL (4.2-5.4) Hemoglobin 15.2 g/dL (12.0-16.0) Hematocrit 43.7 % (37-47) Mean Corpuscular Volume 85.0 fL (80-100) Mean Corpuscular Hemoglobin 29.6 pg (25-34) Mean Corpuscular Hemoglobin Concent 34.8 g/dl (32-36) Platelet Count 293 K/uL (130-400) Mean Platelet Volume 9.5 fL (7.4-10.4) Neutrophils (%) (Auto) 41.2 % Lymphocytes (%) (Auto) 48.5 % Monocytes (%) (Auto) 8.2 % Eosinophils (%) (Auto) 1.6 % Basophils (%) (Auto) 0.3 % Neutrophils # (Auto) 3.76 K/uL (1.4-6.5) Lymphocytes # (Auto) 4.43 K/uL (1.2-3.4) Monocytes # (Auto) 0.75 K/uL (0.11-0.59) Eosinophils # (Auto) 0.15 K/uL (0-0.5) Basophils # (Auto) 0.03 K/uL (0-0.2) RDW Standard Deviation 38.0 fL (36.4-46.3) RDW Coefficient of Variation 12.2 % (11.5-14.5) Immature Granulocyte % (Auto) 0.2 % Immature Granulocyte # (Auto) 0.02 K/uL (0.00-0.02) Urine Color YELLOW Urine Appearance CLEAR (CLEAR) Urine pH 8.5 (4.5-7.5) Urine Specific [place] 1.009 (1.000-1.030) Urine Protein NEG (NEG) Urine Glucose (UA) NEG (NEG) Urine Ketones NEG (NEG) Urine Occult Blood NEG (NEG) Urine Nitrite NEG (NEG) Urine Bilirubin NEG (NEG) Urine Urobilinogen NEG (NEG) Urine Leukocyte Esterase NEG (NEG) Urine WBC (Auto) 1-5 /hpf (0-5) Urine RBC (Auto) 0-4 /hpf (0-4) Urine Hyaline Casts (Auto) 0 /lpf (0-5) Urine Epithelial Cells (Auto) 5-10 /lpf (0-5) Urine Bacteria (Auto) NEG (NEG) Urine Test NEG (NEG) Anion Gap 6.0 mmol/L (3-11) Est Creatinine Clear Calc Drug Dose 95.4 ml/min Estimated GFR () 108.8 Estimated GFR (Non- 93.9 BUN/Creatinine Ratio 14.6 (10-20) Calcium Level 9.0 mg/dl (8.5-10.1) Total Bilirubin 0.4 mg/dl (0.2-1) Direct Bilirubin < 0.1 mg/dl (0-0.2) Aspartate Amino Transf (AST/SGOT) 19 U/L (15-37) Alanine Aminotransferase (ALT/SGPT) 23 U/L (12-78) Alkaline Phosphatase 64 U/L (45-117) Total Protein 7.8 gm/dl (6.4-8.2) Albumin 3.6 gm/dl (3.4-5.0) Lipase 109 U/L (73-393) Laboratory results per my review. Medications Administered Medications (Trade) Dose Ordered Sig/Yi Route Start Time Stop Time Status Last Admin Dose Admin Morphine Sulfate (MoRPHine SULFATE INJ) 6 mg NOW STAT IV 07/06/17 21:35 07/06/17 21:36 DC 07/06/17 21:41 6 MG Ondansetron HCl (Zofran Inj) 4 mg NOW STAT IV 07/06/17 21:35 07/06/17 21:36 DC 07/06/17 21:41 4 MG Sodium Chloride 1,000 ml @ 999 mls/hr Q1H1M STAT IV 07/06/17 21:35 07/06/17 22:35 DC 07/06/17 21:41 999 MLS/HR Ketorolac Tromethamine (Toradol Inj) 30 mg NOW STAT IV 07/06/17 22:21 07/06/17 22:22 DC 07/06/17 22:26 30 MG Ondansetron HCl (Zofran Inj) 4 mg NOW STAT IV 07/06/17 23:16 07/06/17 23:17 DC 07/06/17 23:23 4 MG ED Course ED COURSE: Vital signs were reviewed and showed normotensive. The patients medical record was reviewed The above diagnostic studies were performed and reviewed. ED treatments and interventions as stated above. 2100: The patient was evaluated in room A02. A complete history and physical examination was performed. 2135: Ordered Sodium Chloride 1000 ml @ 999 mls/hr IV, Ondansetron HCl 4mg IV, Morphine Sulfate 6mg IV 2221: Ordered Toradol Inj 30mg IV 2316: Ordered Zofran Inj 4mg IV 2341: I reevaluated the patient and updated her of her current exam findings. 0052: I reevaluated the patient and told her we are still waiting for her ultrasound reading. 0144: Upon reevaluation, the patient is resting comfortably. I discussed my findings with the patient and she understands and agrees with the treatment plan. Based on the patients age, coexisting illnesses, exam and lab findings the decision to treat as an outpatient was made. The patient remained stable while under my care. The patient appeared well at the time of discharge. Medical Decision Differential diagnoses includes but is not limited to gastritis, peptic ulcer disease, GERD, gallbladder disease, pancreatitis, small bowel obstruction, acute coronary syndrome, pericarditis, ischemic bowel, irritable bowel disease, irritable bowel syndrome, appendicitis, diverticulitis, malignancy, hernia, urinary tract infection, torsion, /ectopic (if female), perforation, trauma, infectious. Patient is a 21-year-old female who presents to ER for right flank pain. She notes it started 2 nights ago. It initially started in the lower back and is now wrapping around to her right flank. Patient admits to nausea but no vomiting. No urinary symptoms. No vaginal bleeding/vaginal discharge. CBC shows no significant leukocytosis or anemia. BMP all LFTs, bilirubin lipase is unremarkable. UA shows no signs of infection. Negative . No blood. CT stone study was performed and was negative. Ultrasound right upper quadrant shows ultrasound was unremarkable. Favor that pain is likely musculoskeletal in nature. No signs of UTI as stated above. No signs cholecystitis. Patient was given morphine, IV Toradol, normal saline and Zofran. Patient was updated at bedside. She was discharged follow-up with PCP. Discussed with Pt concerning signs and symptoms to watch out for. Pt was instructed to follow up with their PCP and discussed with the patient their option to return to the ED at anytime for persistent or worsening symptoms. The appropriate anticipatory guidance and out-patient management, including indications for return to the emergency department, were explained at length to the patient and understood. Medication Reconcilliation Current Medication List: was personally reviewed by me Blood Pressure Screening Patient's blood pressure: Normal blood pressure Blood pressure disposition: Did not require urgent referral Impression Primary Impression: Right flank pain Scribe Attestation The scribe's documentation has been prepared under my direction and personally reviewed by me in its entirety. I confirm that the note above accurately reflects all work, treatment, procedures, and medical decision making performed by me. Departure Information Dispostion Home / Self-Care Referrals Sonido Viramontes M.D. (PCP) Forms HOME CARE DOCUMENTATION FORM, IMPORTANT VISIT INFORMATION Patient Instructions ED Flank Pain Uncertain Cause, My [facility] Additional Instructions Please follow up with your primary care doctor or if you are a student, [facility] with in the next 24 hours. Any worsening of your symptoms, please return to the ED immediately. This includes any fevers greater than 100.4, worsening pain, chest pain, shortness breath, persistent nausea, vomiting, unable to eat or drink, or any other concerning signs or symptoms from your standpoint. You were given medications during this visit that will inhibit your ability to drive, operate machinery and work. Please do NOT drive, operate machinery, drink alcohol or work for the next 12hrs. Please take Tylenol or Motrin as needed for pain.
[2017-07-07 01:48] VITALS: BP 120/78; PULSE 82; O2SAT 99
--- NOTE | 2017-07-07 07:13 | DIAGNOSTIC IMAGING REPORT ---
ULTRASOUND RIGHT UPPER QUADRANT ABDOMEN CLINICAL HISTORY: Right flank pain. COMPARISON STUDY: Abdominal CT dated 07/06/2017. TECHNIQUE: Real-time, grayscale, and color flow sonography of the right upper quadrant of the abdomen was performed. Images are reviewed in the transverse and longitudinal planes. FINDINGS: Liver: The liver is top normal in size and homogeneous in echotexture. There is no intrahepatic biliary ductal dilatation. The main portal vein is patent. A 7 mm hyperechoic focus in the right hepatic lobe likely represents a tiny hemangioma. Gallbladder: Biliary sludge is noted. The gallbladder is otherwise normal in appearance. No shadowing gallstones are identified. There is no gallbladder wall thickening or pericholecystic fluid. A sonographic Hudson's sign is reportedly absent. The common bile duct measures up to 0.3 cm in diameter. Pancreas: Visualized portions of the pancreatic head and body are normal in appearance. Right kidney: Survey images of the right kidney demonstrate normal size and echotexture. There is no hydronephrosis. A 3 mm nonobstructing calculus is noted in the lower pole. Ascites: None. IMPRESSION: 1. Biliary sludge is noted. There are no shadowing gallstones and there is no sonographic evidence of acute cholecystitis. 2. A 7 mm hyperechoic lesion in the right hepatic lobe is typical in appearance for a tiny hemangioma. 3. A small nonobstructing right renal calculus is identified. Electronically signed by: Rafat Monique M.D. 07/07/2017 7:12 AM Dictated Date/Time: 07/07/2017 7:10 AM
== END 2017-07-07 01:49 | disposition home or self-care (01) ==
LOC: C.EDB 20:32 → C.EDA 07-07 01:49
DX: R10.9 Unspecified abdominal pain (principal); Z87.442 Personal history of urinary calculi; Z90.89 Acquired absence of other organs; Z98.890 Other specified postprocedural states; Z83.3 Family history of diabetes mellitus; Z82.49 Family history of ischemic heart disease and other diseases of the circulatory system; Z84.1 Family history of disorders of kidney and ureter

== ENCOUNTER 2018-01-18 10:04 | Emergency (ER) | payer OTHER ==
[~2018-01-18] VITALS: Ht 162.6 cm; Wt 61.0 kg
[~2018-01-18 10:04] MED LIST changes: +ONDA4TAB10 SL
[2018-01-18 10:25] VITALS: TEMP 37; Ht 162.6 cm; Wt 61.0 kg
[2018-01-18] MEDS ORDERED: DEXAMETHASONE INJ 8 MG in SYRINGE 0 ML IV STA (10:47)
[2018-01-18] MEDS ORDERED: KETOROLAC TROMETHAMINE 30 MG/ML VIAL IV STA (10:47)
[2018-01-18] MEDS ORDERED: PROCHLORPERAZINE 5 MG/ML 2 ML VIAL IV STA (10:47)
[2018-01-18] MEDS ORDERED: SODIUM CHLORIDE 0.9% 1000ML 1,000 ML IV STA (10:47)
[2018-01-18] MEDS ORDERED: DiphenhydrAMINE HCL 50 MG/ML VIAL IV STA (10:47)
[2018-01-18 11:22] LABS: BASO % 0.3 %; BASO ABS # 0.02 K/uL (0-0.2); EOS % 2.6 %; EOS ABS # 0.19 K/uL (0-0.5); HEMATOCRIT 44.5 % (37-47); HEMOGLOBIN 15.6 g/dL (12.0-16.0); IG# 0.01 K/uL (0.00-0.02); LYMPH % 37.3 %; LYMPH ABS # 2.76 K/uL (1.2-3.4); MEAN CELL VOLUME 85.1 fL (80-100); MEAN CORPUSCULAR HEMOGLOBIN 29.8 pg (25-34); MEAN CORPUSCULAR HGB CONC 35.1 g/dl (32-36); MEAN PLATELET VOLUME 9.4 fL (7.4-10.4); MONO % 7.7 %; MONO ABS # 0.57 K/uL (0.11-0.59); NEUT ABS # 3.84 K/uL (1.4-6.5); PLATELET COUNT 305 K/uL (130-400); RED CELL DISTRIBUTION WIDTH CV 12.4 % (11.5-14.5); WHITE BLOOD COUNT 7.39 K/uL (4.8-10.8)
[2018-01-18 11:26] VITALS: O2SAT 98
[2018-01-18 11:31] LABS: INR 1.1 (0.9-1.1); PTT PATIENT 30.1 SECONDS (21.0-31.0)
[2018-01-18 11:43] LABS: CALCIUM 8.9 mg/dl (8.5-10.1); CREATININE 0.66 mg/dl (0.60-1.20); POTASSIUM 4.1 mmol/L (3.5-5.1)
[2018-01-18] MEDS ORDERED: GADAVIST IV PRN (12:30)
--- NOTE | 2018-01-18 12:56 | DIAGNOSTIC IMAGING REPORT ---
MRI OF THE BRAIN COMBO CLINICAL HISTORY: Right face and hand numbness. Headache. COMPARISON STUDY: No priors. TECHNIQUE: MRI of the brain was performed utilizing various T1 and T2-weighted sequences in the axial, sagittal, and coronal planes. Contrast-enhanced sequences were acquired following the administration of 6 cc of Gadavist. FINDINGS: Brain parenchyma: The brain parenchyma is normal in appearance. There is no hemorrhage or mass effect. There is no restricted diffusion to suggest acute ischemia. No enhancing mass lesion is identified on the postcontrast images. Pan-white matter differentiation is preserved. No extra-axial fluid collection is seen. The cerebellar tonsils are normal in configuration. Ventricles, sulci, and cisterns: Normal in configuration. Pituitary and sella: Unremarkable. Intracranial vasculature: Normal flow voids are maintained at the skull base. Orbits: The bony orbits are grossly intact. Orbital contents are normal in appearance. Sinuses and mastoids: Clear. Calvarium: Unremarkable. Cervical cord: Partially visualized cervical spinal cord is normal in morphology and signal intensity. IMPRESSION: No acute intracranial abnormality. Electronically signed by: Rafat Monique M.D. 01/18/2018 12:55 PM Dictated Date/Time: 01/18/2018 12:53 PM
[2018-01-18 13:25] VITALS: BP 110/75; PULSE 100; O2SAT 96
--- NOTE | 2018-01-18 14:47 | EMERGENCY ROOM VISIT NOTE ---
History Report prepared by Rosa: Jose Mckeon Under the Supervision of: Dr. Rafat Zapata M.D. First contact with patient: 10:37 Chief Complaint: NEURO SYMPTOMS Stated Complaint: HEADACHE,FACE AND HAND NUMB,CONFUSION,HEAD PRESSUR History of Present Illness The patient is a 22 year old female who presents to the Emergency Room with complaints of worsening headache beginning 2.5 hours ago. She currently rates her discomfort a 7/10 in severity. The patient states she woke up this morning confused. She reports she had a normal day yesterday and fell asleep feeling fine. The patient notes she woke up this morning with half a tribe of black fuzziness in her right eye. She states it is not present when her right eye is covered, and it has been constant. The patient reports she then developed a bilateral frontal headache that has been worsening since onset. She notes she has been nauseous, and she has been experiencing right sided numbness. The patient states her right hand is numb at the 3rd, 4th, and 5th digits, her right cheek is numb, and the right side of her tongue is numb. She reports she was able to drink water normally this morning, and she has not eaten anything. The patient notes she is not having trouble speaking but common things do not sound right. She states her daughter was watching Sebastian today and Sebastian did not seem like the proper name for the reilly. The patient reports she has a history of kidney stones, kidney infection, and migraines. She notes this does not feel like her typical migraine, and she has not had one in 1.5 years. The patient states her LNMP was 6 weeks ago, and she does not think she is . She denies right leg numbness, fevers, cough, hitting her head, and trouble speaking. The patient reports she takes amitriptyline for anxiety and Cymbalta daily. Source of History: patient Onset: 2.5 hours ago Position: head Symptom Intensity: 7/10 Quality: ache Timing: worsening Associated Symptoms: No fevers, No cough Note: Associated symptoms: confusion, half a tribe of black fuzziness in her right eye, her right hand is numb at the 3rd, 4th, and 5th digits, her right cheek is numb, and the right side of her tongue is numb Denies: right leg numbness, hitting her head, trouble speaking Review of Systems See HPI for pertinent positives & negatives. A total of 10 systems reviewed and were otherwise negative. Past Medical & Surgical Medical Problems: (1) 35 to 36 weeks gestation of (2) Abdominal pain (3) Abdominal pain (4) Constipation (5) contractions, (6) False labor after 37 completed weeks of gestation (7) Flank pain (8) Flank pain (9) Hydroureteronephrosis (10) Irregular contractions (11) Kidney stone complicating (12) Knee contusion (13) labor (14) Nausea (15) Ovarian cyst (16) Ovarian cyst (17) with 29 completed weeks gestation (18) CONTRACTIONS (19) Right flank pain (20) Uterine contractions (21) Vaginal bleeding Surgical Problems: (1) History of appendectomy (2) History of back surgery Family History Cancer Diabetes mellitus FH: gallbladder disease Hypertension Kidney disease Kidney stones Social History Smoking Status: Former Smoker Alcohol Use: none Drug Use: none Marital Status: single Housing Status: lives with family Occupation Status: employed Current/Historical Medications Scheduled Amitriptyline HCl (Amitriptyline HCl), 20 MG PO HS Duloxetine Hcl (Cymbalta), 60 MG PO DAILY Allergies Coded Allergies: Acetaminophen (Unverified Allergy, Unknown, REDMANS SYNDROME, SWELLING, ) Cephalexin (Unverified Allergy, Unknown, rash, 01/18/18) Codeine (Verified Allergy, Unknown, HIVES, 01/18/18) tolerated hydrocodone/acetaminophen during 2015 admission Pamabrom (Unverified Allergy, Unknown, REDMANS SYNDROME, SWELLING, 01/18/18 ) Pyrilamine (Unverified Allergy, Unknown, REDMANS SYNDROME, SWELLING, ) Physical Exam Vital Signs Date Time Temp Pulse Resp B/P (MAP) Pulse Ox O2 Delivery O2 Flow Rate FiO2 01/18/18 13:25 100 17 110/75 96 Room Air 01/18/18 12:42 84 105/64 95 Room Air 01/18/18 11:26 98 Room Air 01/18/18 11:25 121 17 127/86 97 Room Air 01/18/18 10:25 37.0 78 20 149/111 94 Room Air Physical Exam GENERAL: Patient is in no acute distress. Anxious. HEENT: No acute trauma, normocephalic atraumatic, mucous membranes moist, no nasal congestion, no scleral icterus. Pupils are equal and reactive to light. NECK: No stridor, no adenopathy, no meningismus, trachea is midline. LUNGS: Clear to auscultation bilaterally, no wheeze, no rhonchi, breath sounds equal. HEART: Without murmurs gallops or rubs, regular rate and rhythm. ABDOMEN: Soft, nontender, bowel sounds positive, no hernias, no peritonitis. EXTREMITIES: No cyanosis or edema, full range of motion of all the joints without pain or difficulty, no signs for acute trauma. NEUROLOGIC: Oriented x 3, no acute motor or sensory deficits, no focal weakness. No facial droop or speech slur. No pronator drift or cerebellar dysfunction. SKIN: No rash, no jaundice, no diaphoresis. Medical Decision & Procedures ER Provider Diagnostic Interpretation: Radiology results as stated below per my review and radiologist interpretation: MRI OF THE BRAIN COMBO CLINICAL HISTORY: Right face and hand numbness. Headache. COMPARISON STUDY: No priors. TECHNIQUE: MRI of the brain was performed utilizing various T1 and T2-weighted sequences in the axial, sagittal, and coronal planes. Contrast-enhanced sequences were acquired following the administration of 6 cc of Gadavist. FINDINGS: Brain parenchyma: The brain parenchyma is normal in appearance. There is no hemorrhage or mass effect. There is no restricted diffusion to suggest acute ischemia. No enhancing mass lesion is identified on the postcontrast images. Pan-white matter differentiation is preserved. No extra-axial fluid collection is seen. The cerebellar tonsils are normal in configuration. Ventricles, sulci, and cisterns: Normal in configuration. Pituitary and sella: Unremarkable. Intracranial vasculature: Normal flow voids are maintained at the skull base. Orbits: The bony orbits are grossly intact. Orbital contents are normal in appearance. Sinuses and mastoids: Clear. Calvarium: Unremarkable. Cervical cord: Partially visualized cervical spinal cord is normal in morphology and signal intensity. IMPRESSION: No acute intracranial abnormality. Electronically signed by: Rafat Monique M.D. 01/18/2018 12:55 PM Dictated Date/Time: 01/18/2018 12:53 PM Laboratory Results 01/18/18 11:07 Red Blood Count 5.23, Mean Corpuscular Volume 85.1, Mean Corpuscular Hemoglobin 29.8, Mean Corpuscular Hemoglobin Concent 35.1, Mean Platelet Volume 9.4, Neutrophils (%) (Auto) 52.0, Lymphocytes (%) (Auto) 37.3, Monocytes (%) (Auto) 7.7, Eosinophils (%) (Auto) 2.6, Basophils (%) (Auto) 0.3, Neutrophils # (Auto) 3.84, Lymphocytes # (Auto) 2.76, Monocytes # (Auto) 0.57, Eosinophils # (Auto) 0.19, Basophils # (Auto) 0.02 01/18/18 11:07 Test 01/18/18 11:02 01/18/18 11:07 Urine Color YELLOW Urine Appearance CLEAR (CLEAR) Urine pH 6.0 (4.5-7.5) Urine Specific [place] 1.010 (1.000-1.030) Urine Protein NEG (NEG) Urine Glucose (UA) NEG (NEG) Urine Ketones NEG (NEG) Urine Occult Blood NEG (NEG) Urine Nitrite NEG (NEG) Urine Bilirubin NEG (NEG) Urine Urobilinogen NEG (NEG) Urine Leukocyte Esterase NEG (NEG) Urine Opiates Screen NEG (NEG) Urine Methadone, Qualitative NEG (NEG) Urine Barbiturates NEG (NEG) Urine Phencyclidine (PCP) Level NEG (NEG) Ur Amphetamine/Methamphetamine NEG (NEG) MDMA (Ecstasy) Screen NEG (NEG) Urine Benzodiazepines Screen NEG (NEG) Urine Cocaine Metabolite NEG (NEG) Urine Marijuana (THC) NEG (NEG) White Blood Count 7.39 K/uL (4.8-10.8) Red Blood Count 5.23 M/uL (4.2-5.4) Hemoglobin 15.6 g/dL (12.0-16.0) Hematocrit 44.5 % (37-47) Mean Corpuscular Volume 85.1 fL (80-100) Mean Corpuscular Hemoglobin 29.8 pg (25-34) Mean Corpuscular Hemoglobin Concent 35.1 g/dl (32-36) Platelet Count 305 K/uL (130-400) Mean Platelet Volume 9.4 fL (7.4-10.4) Neutrophils (%) (Auto) 52.0 % Lymphocytes (%) (Auto) 37.3 % Monocytes (%) (Auto) 7.7 % Eosinophils (%) (Auto) 2.6 % Basophils (%) (Auto) 0.3 % Neutrophils # (Auto) 3.84 K/uL (1.4-6.5) Lymphocytes # (Auto) 2.76 K/uL (1.2-3.4) Monocytes # (Auto) 0.57 K/uL (0.11-0.59) Eosinophils # (Auto) 0.19 K/uL (0-0.5) Basophils # (Auto) 0.02 K/uL (0-0.2) RDW Standard Deviation 39.0 fL (36.4-46.3) RDW Coefficient of Variation 12.4 % (11.5-14.5) Immature Granulocyte % (Auto) 0.1 % Immature Granulocyte # (Auto) 0.01 K/uL (0.00-0.02) Prothrombin Time 11.2 SECONDS (9.0-12.0) Prothromb Time International Ratio 1.1 (0.9-1.1) Activated Partial Thromboplast Time 30.1 SECONDS (21.0-31.0) Partial Thromboplastin Ratio 1.2 Anion Gap 6.0 mmol/L (3-11) Est Creatinine Clear Calc Drug Dose 113.6 ml/min Estimated GFR () 143.3 Estimated GFR (Non- 123.6 BUN/Creatinine Ratio 18.1 (10-20) Calcium Level 8.9 mg/dl (8.5-10.1) Magnesium Level 2.1 mg/dl (1.8-2.4) Human Chorionic Gonadotropin, Qual NEG (NEG) Laboratory results reviewed by me. Medications Administered Medications (Trade) Dose Ordered Sig/Yi Route Start Time Stop Time Status Last Admin Dose Admin Sodium Chloride 1,000 ml @ 999 mls/hr Q1H1M STAT IV 01/18/18 10:47 01/18/18 11:47 DC 01/18/18 11:17 999 MLS/HR Ketorolac Tromethamine (Toradol Inj) 15 mg NOW STAT IV 01/18/18 10:47 01/18/18 10:52 DC 01/18/18 11:16 15 MG Dexamethasone Sodium Phosphate 8 mg/Syringe 2 ml @ 1 mls/min NOW STAT IV 01/18/18 10:47 01/18/18 10:52 DC 01/18/18 11:16 1 MLS/MIN Prochlorperazine Edisylate (Compazine Inj) 5 mg NOW STAT IV 01/18/18 10:47 01/18/18 10:52 DC 01/18/18 11:16 5 MG Diphenhydramine HCl (Benadryl Inj) 25 mg NOW STAT IV 01/18/18 10:47 01/18/18 10:52 DC 01/18/18 11:16 25 MG ECG Per My Interpretation Indication: other (headache and numbness) Rate (beats per minute): 93 Rhythm: normal sinus Findings: no ectopy, other (No PVCs. No ST elevation.) ED Course 1039: The patient was evaluated in room C06. A complete history and physical exam was performed. 1047: Ordered Diphenhydramine HCl 25mg IV, Compazine 5mg IV, Dexamethasone Sodium Phosphate 8 mg/Syringe 2 ml @ 1 mls/min IV, Toradol 15mg IV, Sodium Chloride 1000 ml @ 999 mls/hr IV 1314: Reevaluated the patient. She feels much better and asymptomatic. Discussed results and discharge instructions: she verbalized understanding and agreement. The patient is ready for discharge. Medical Decision The patient is a 22 year old female who presents to the ED with complaints of a worsening headache. Differential diagnoses considered include complex migraine , intracranial bleeding, intracranial mass, , stroke, electrolyte imbalance, anemia, infection, UTI, dehydration. There is no leukocytosis or concerning anemia. No significant electrolyte abnormality or kidney failure. testing was negative. Urinalysis does not show evidence for infection. Urine tox is negative. On exam, there were no focal neurologic deficits. No meningismus, the patient was not febrile. Brain MRI does not show a mass, stroke or evidence for bleeding. The patient received IV saline, IV Toradol, IV Compazine, IV Benadryl and IV Decadron. She is now asymptomatic, she feels markedly improved. I suspect the patient has a complex migraine, she was reassured, she is being discharged home. She was encouraged to return for worsening symptoms. Medication Reconcilliation Current Medication List: was personally reviewed by me Blood Pressure Screening Patient's blood pressure: Normal blood pressure Blood pressure disposition: Did not require urgent referral Impression Primary Impression: Migraine Additional Impression: Numbness on right side Scribe Attestation The scribe's documentation has been prepared under my direction and personally reviewed by me in its entirety. I confirm that the note above accurately reflects all work, treatment, procedures, and medical decision making performed by me. Departure Information Dispostion Home / Self-Care Referrals Sonido Viramontes M.D. (PCP) Forms HOME CARE DOCUMENTATION FORM, IMPORTANT VISIT INFORMATION, WORK / SCHOOL INSTRUCTIONS Patient Instructions My [facility] Additional Instructions follow with jg anderson rest fluids return if worsening lab testing and MRI today were ok Problem Qualifiers
== END 2018-01-18 13:36 | disposition home or self-care (01) ==
LOC: C.EDB 10:06 → C.EDC 13:36
DX: G43.909 Migraine, unspecified, not intractable, without status migrainosus (principal); R20.0 Anesthesia of skin; F41.9 Anxiety disorder, unspecified; Z87.891 Personal history of nicotine dependence; Z79.899 Other long term (current) drug therapy; Z88.5 Allergy status to narcotic agent; Z88.8 Allergy status to other drugs, medicaments and biological substances; Z88.1 Allergy status to other antibiotic agents

== ENCOUNTER 2019-05-08 20:01 | Observation (INO) ==
[2019-05-08] MEDS: LACTATED RINGER'S 1,000 ML IV SCH ×2 (21:28→22:33)
[2019-05-08] MEDS ORDERED: TERBUTALINE SULFATE 1 MG/ML VIAL SQ ONE (23:43)
[2019-05-08] MEDS ORDERED: LACTATED RINGER'S 1,000 ML IV SCH (23:45)
--- NOTE | 2019-05-09 00:10 | History & Physical Report ---
Date of Service May 08, 2019 Assessment & Plan (1) uterine contractions in third trimester, antepartum: even though cervical exam has improved over time with hydration & rest, I will give her SQ terbutaline 0.25mg now & first dose of Celestone in the morning. She will return to L&D on 05/10 at 8:30 am for the second dose of Celestone. Present on Admission?: Yes History of Present Illness Primary Care Provider: Sonido Viramontes MD Patient is a 23 yo white female EDC 06/07/19 who presents at 35 2/7 weeks with regular contractions every 5-6 minutes and cramping in between the contractions. she denies any bloody show or leaking fluid. baby has been moving. She ahd not been dong any increased activity except she did have intercourse last night. She has noticed that the contractions were getting more intense over a 2 hour period of time. has otherwise been uncomplicated. Her last was uncomplicated as well and delivered at 39+ weeks. On presentation to L&D she was no longer ronni every 5 minutes but still having intermittent contractions every 7-15 minutes. cervix exam upon arrival was external os-3cm with internal os -1cm/80%/-2 midposition. Because of this exam, she was started on a 2 liter bolus of LR & rechecked 2 hours later. Contractions now have returned but still 7-15 minutes apart accompanied by const ant low back pain. Re-examination of the cervix shows it is now 1cm/50%/-3(ballotable) vertex by sonogram. Allergies Allergy/AdvReac Type Severity Reaction Status Date / Time cephalexin Allergy Unknown rash Verified 05/05/19 15:29 codeine Allergy Unknown HIVES Verified 05/05/19 15:29 pamabrom Allergy Unknown REDMANS Verified 05/05/19 15:29 SYNDROME, SWELLING pyrilamine Allergy Unknown REDMANS Verified 05/05/19 15:29 SYNDROME, SWELLING magnesium AdvReac Severe Hives Verified 05/05/19 15:29 Home Medications Home Medications Medication Instructions Recorded Confirmed Type PNV cmb#95-ferrous fumarate-FA 1 tab PO QAM 10/20/18 05/08/19 History [] duloxetine 60 mg PO HS 10/20/18 05/08/19 History Patient History Family History Grandfather (Paternal) Colorectal cancer Father Depression Dyslipidemia Hypertension Grandmother (Maternal) Diabetes Mother Gestational diabetes Kidney stones Premature delivery Grandfather (Maternal) Gestational diabetes Dyslipidemia Hypertension Family/Other Breast cancer maternal great aunt Social History Preferred Language: Czech Beliefs That Will Affect Care: None marital status: Current Living Situation: Spouse Current Living Situation Comment: Daughter current occupational status: employed Other Information That Helps Us Care for You: No Feels Safe at Home: Yes Safety Concerns: Feels Safe At This Time Smoking Status: Never smoker Hx Alcohol Use: No Hx Substance Use: No Review of Systems All systems reviewed & are unremarkable except as noted in HPI & below Physical Exam Constitutional: WD/WN, vitals as above Respiratory: normal respiratory effort, lungs clear to auscultation Cardiovascular: RRR, no murmur, no edema Gastrointestinal (Abdomen): normal bowel sounds, soft, nontender, no hepatosplenomegaly Psychiatric: A+Ox3, euthymic affect Genitourinary: normal external appearance OB Exam Abdomen: + vertex and + irregular contractions Manual OB Exam: + cervical dilation 1 cm, + cervical effacement 50% and + station high OB Exam Monitor Tracing: + external FHT monitor used, + external uterine monitor used, + category I and + normal FHT variability Results & Data Vital Signs (Past 12 Hours) Vital Signs Temp Pulse Resp BP 05/08/19 23:05 98.2 F 05/08/19 23:04 94 H 123/73 05/08/19 20:40 89 124/76 05/08/19 20:26 107 H 131/78 05/08/19 20:20 99.1 F 18 05/08/19 20:10 104 H 135/87 Code Status & VTE Plan VTE Prophylaxis Plan VTE Prophylaxis will be ordered: No
[2019-05-09] MEDS ORDERED: DULOXETINE HCL 60 MG CAP PO STA (00:11)
[2019-05-09 00:36] LABS: Appearance Urine Clear (Clear); Bilirubin Urine Negative (Negative); Blood Urine Negative (Negative); Color Urine Yellow; Glucose Urine UA Negative (Negative); Ketones Urine Negative (Negative); Leukocyte Esterase Urine Negative (Negative); Nitrite Urine Negative (Negative); Protein Urine Negative (Negative); Specific Gravity Urine 1.013 (1.000-1.030); Urobilinogen Urine Negative (Negative); pH Urine 7.5 (4.5-7.5)
[2019-05-09] MEDS ORDERED: ACETAMINOPHEN 325 MG TAB PO PRN (06:59)
--- NOTE | 2019-05-09 08:09 | Obstetrical Progress Note ---
Date of Service May 09, 2019 Assessment & Plan (1) uterine contractions in third trimester, antepartum: contractions have now resolved cervical exam remains unchanged. D/C to home after Celestone. Return on 05/10 for second dose of celestone. Follow up in the office on 05/12. Present on Admission?: Yes Subjective rare contractions overnight. still having back pain but no worse. baby continues to be active. Review of Systems Review of Systems: All systems reviewed & are unremarkable except as noted in HPI & below Physical Exam Constitutional: WD/WN, vitals as above Psychiatric: A+Ox3, euthymic affect Genitourinary: OB Exam Abdomen: + vertex and + irregular contractions (rare) Manual OB Exam: + cervical dilation 1 cm, + cervical effacement 50% and + station high OB Exam Monitor Tracing: + external FHT monitor used, + external uterine monitor used, + category I and + normal FHT variability Results & Data Vital Signs (Past 12 Hours) Vital Signs Temp Pulse Resp BP Pulse Ox 05/09/19 06:54 98.1 F 100 H 16 112/68 05/09/19 03:20 98.2 F 104 H 18 119/67 98 05/09/19 03:15 88 98 05/09/19 03:10 93 H 96 05/09/19 03:05 90 97 05/09/19 03:00 97 H 96 05/09/19 02:55 95 H 97 05/09/19 02:50 95 H 96 05/09/19 02:45 100 H 98 05/09/19 02:40 96 H 97 05/09/19 02:35 97 H 97 05/09/19 02:30 94 H 96 05/09/19 02:25 101 H 96 05/09/19 02:23 103 H 93 05/09/19 02:20 107 H 96 05/09/19 02:15 109 H 96 05/09/19 02:10 95 H 96 05/09/19 02:05 97 H 96 05/09/19 02:00 105 H 97 05/09/19 01:55 105 H 97 05/09/19 01:50 108 H 97 05/09/19 01:45 104 H 96 05/09/19 01:40 105 H 96 05/09/19 01:35 101 H 96 05/09/19 01:30 104 H 96 05/09/19 01:25 109 H 96 05/09/19 01:20 105 H 96 05/09/19 01:15 103 H 96 05/09/19 01:10 104 H 96 05/09/19 01:05 106 H 97 05/09/19 01:00 107 H 96 05/09/19 00:55 109 H 97 05/09/19 00:50 110 H 97 05/09/19 00:45 117 H 97 05/09/19 00:40 115 H 99 05/09/19 00:35 113 H 98 05/09/19 00:30 121 H 98 05/09/19 00:25 110 H 98 05/09/19 00:20 107 H 98 05/09/19 00:15 110 H 99 05/08/19 23:05 98.2 F 18 05/08/19 23:04 94 H 123/73 05/08/19 20:40 89 124/76 05/08/19 20:26 107 H 131/78 05/08/19 20:20 99.1 F 18 05/08/19 20:10 104 H 135/87 PG Care Time/CCT Total # of Minutes Spent Total Time Spent with Patient: Total time spent is greater than 50% in coordination of care (as documented) at patient's floor/unit and/or counseling patient:
[2019-05-09] MEDS ORDERED: BETAMETH SOD PHOS/ACETATE IA 6 MG/ML IM SCH (08:30)
--- NOTE | 2019-05-11 13:40 | Discharge Summary ---
PRINCIPAL DIAGNOSIS: Premature contractions at 35 and 2/7 weeks. HISTORY OF PRESENT ILLNESS AND HOSPITAL COURSE: The patient is a 23-year-old 3, para 1-0-1-1 white female, EDC of 06/07/2019, who presented at 35 and 2/7 weeks with regular contractions every 5-6 minutes and cramping in between. Upon arrival in labor and delivery, her contractions had beginning to space out; however, on cervical exam, the cervix felt that the external os was dilated to 3 cm and was 80% effaced, but the internal os was at 1 cm dilated and at -2 station. She was given IV fluids, and after 2 hours of observation, her cervix was reexamined, and at this point, the cervix felt to be 1 cm, 50% effaced and presenting part was high. It was vertex on ultrasound. She received a dose of Celestone at 8:00 a.m. on the . She continued not to have contractions overnight. Her cervix remained unchanged prior to her discharge. She is to return in 24 hours for her second dose of Celestone. Celestone was given because of the effacement and cervical dilation at 35 and 2/7 weeks. She is to call for increase contractions every 5-6 minutes apart, lasting for an hour. She is to keep her appointment this coming week for her 36-week appointment. She is also call for any increased vaginal bleeding, possible rupture of membranes or leaking of clear fluid.
== END 2019-05-09 08:35 | disposition home or self-care (01) ==
LOC: OPB 20:01 → 4S1 20:01

== ENCOUNTER 2019-05-29 16:50 | Inpatient (IN) ==
[2019-05-29] MEDS ORDERED: OXYTOCIN 30 UNITS/500 ML BAG IV PRN ×2 (19:19→19:21)
--- NOTE | 2019-05-29 19:29 | History & Physical Report ---
Date of Service May 29, 2019 Assessment & Plan (1) Supervision of normal intrauterine in multigravida: Will admit to L&D for augmentation of labor, for the reason of gestational hypertension. She has had 2 episodes on separate days, of blood pressures with systolics over 140 and diastolics over 90. I discussed recommendations to deliver, and she is agreeable. Will plan to begin pitocin, she would like an epidural, and AROM if needed. Will also obtain CBC/CMP to r/o preeclampsia. (2) Gestational hypertension: History of Present Illness Chief Complaint: contractions, elevated BP Primary Care Provider: Sonido Viramontes MD 23yo @ 38 01/26 presented to L&D with contractions and pelvic pressure. Her cervix exam is the same as her last check, in the office yesterday, 3cm. However, her blood pressure continues to show elevated readings, with systolics that increase to above 140 and diastolics above 90s. She had previously been evaluated for r/o labor on 05/26/19 and showed labile blood pressures at that time - with highest 162/100. She had not previously had elevated BP in . + movement, no vaginal bleeding, no leaking of fluid. Allergies Allergy/AdvReac Type Severity Reaction Status Date / Time cephalexin Allergy Unknown rash Verified 05/26/19 09:05 codeine Allergy Unknown HIVES Verified 05/26/19 09:05 pamabrom Allergy Unknown REDMANS Verified 05/26/19 09:05 SYNDROME, SWELLING pyrilamine Allergy Unknown REDMANS Verified 05/26/19 09:05 SYNDROME, SWELLING magnesium AdvReac Severe Hives Verified 05/26/19 09:05 Home Medications Home Medications Medication Instructions Recorded Confirmed Type PNV cmb#95-ferrous fumarate-FA 1 tab PO QAM 10/20/18 05/26/19 History [] duloxetine 60 mg PO HS 10/20/18 05/26/19 History Patient History Social History Preferred Language: Bulgarian Communication Ability: Effective Beliefs That Will Affect Care: None marital status: Current Living Situation: Family Current Living Situation Comment: and daughter current occupational status: employed Other Information That Helps Us Care for You: No Feels Safe at Home: Yes Safety Concerns: Feels Safe At This Time Smoking Status: Former smoker Hx Alcohol Use: No Hx Substance Use: No Review of Systems All systems reviewed & are unremarkable except as noted in HPI & below Physical Exam Physical Exam: Gen: AAOx3 NAD CV: RRR S1S2 L: CTAB Abd: soft, gravid, NTTP Ext: no edema SVE: /-2 FHT Cat 1 [place] Q 4-7 min Results & Data Vital Signs (Past 12 Hours) Vital Signs Temp Pulse Resp BP 05/29/19 18:55 88 142/83 H 05/29/19 17:48 100 H 133/93 05/29/19 17:39 100 H 126/91 05/29/19 17:28 98 H 123/83 05/29/19 17:20 105 H 132/87 05/29/19 16:58 123 H 142/84 H 05/29/19 16:56 37.0 C 24
[2019-05-29 19:45] LABS: Hematocrit (blood only) 36.6 % (37-47); Hemoglobin 12.7 g/dL (12.0-16.0); Mean Corpuscular Hemoglobin 29.3 pg (25-34); Mean Corpuscular Volume 84.3 fL (80-100); Mean Platelet Volume 10.3 fL (7.4-10.4); Platelet Count 247 K/uL (130-400); RDW Standard Deviation 39.3 fL (36.4-46.3); Red Blood Count 4.34 M/uL (4.2-5.4); White Blood Count 10.42 K/uL (4.8-10.8)
[2019-05-29 19:46] LABS: Mean Corpuscular Hgb Conc 34.7 g/dL (32-36)
[2019-05-29] MEDS: LACTATED RINGER'S 1,000 ML IV PRN ×2 (19:52→22:18)
[2019-05-29 20:02] LABS: Albumin Level 2.6 gm/dl (3.4-5.0); BUN Creatinine Ratio 11.8 (10-20); Calcium 8.8 mg/dl (8.5-10.1); Creatinine Clr Calc Pharmacy 144.9 ml/min; Est GFR (African American) 146.8; Est GFR (Non-African American) 126.7; Potassium 3.8 mmol/L (3.5-5.1)
[2019-05-29 20:05] LABS: Albumin Globulin Ratio 0.6 (0.9-2); Bilirubin,Total 0.2 mg/dl (0.2-1); Globulin 4.4 gm/dl (2.5-4.0)
[2019-05-29] MEDS ORDERED: CALCIUM CARBONATE 500 MG CHEWABLE TAB PO PRN (21:14)
[2019-05-29] MEDS ORDERED: DULOXETINE HCL 60 MG CAP PO SCH (21:15)
[2019-05-29] MEDS ORDERED: BUPIVACAINE 0.25% 30 ML VIAL ONE (21:32)
[2019-05-29] MEDS ORDERED: ePHEDrine sulfate 50 MG/ML AMP ONE (21:32)
[2019-05-29] MEDS ORDERED: fentaNYL 2MCG/ML ROPIV 1.25MG/ML 100 ML BAG EPI ONE (21:33)
[2019-05-29] MEDS ORDERED: fentaNYL citrate 100 MCG/2 ML VIAL ONE (21:33)
--- NOTE | 2019-05-29 21:47 | Obstetrical Progress Note ---
Date of Service May 29, 2019 Subjective Uncomfortable with ctx, requesting epidural. FHT Cat 1 [place] Q 2 Results & Data Vital Signs (Past 12 Hours) Vital Signs Temp Pulse Resp BP Pulse Ox 05/29/19 21:41 90 99 05/29/19 21:36 81 99 05/29/19 21:09 90 20 131/86 05/29/19 20:15 88 143/88 H 05/29/19 18:55 88 142/83 H 05/29/19 17:48 100 H 133/93 05/29/19 17:39 100 H 126/91 05/29/19 17:28 98 H 123/83 05/29/19 17:20 105 H 132/87 05/29/19 16:58 123 H 142/84 H 05/29/19 16:56 37.0 C 24 PG Care Time/CCT Total # of Minutes Spent Total Time Spent with Patient: Total time spent is greater than 50% in coordination of care (as documented) at patient's floor/unit and/or counseling patient:
--- NOTE | 2019-05-29 21:50 | Anesthesiology Consultation ---
Date of Service May 29, 2019 Assessment & Plan Chart Review Chart Review: Acceptable Risk for Surgery, Patient NOT seen in Pre Admission Testing and Acceptable Risk for Labor Epidural Consults Requested none ASA ASA2 Proposed Anesthesia Anesthesia Type: General and Labor Epidural Risk / Benefits Reviewed With: PT / POA / Parent / Guardian, Accepts Plan and Informed Consent Obtained History Height/Weight Height: 5 ft 4 in Weight: 78.018 kg Allergies Allergy/AdvReac Type Severity Reaction Status Date / Time cephalexin Allergy Unknown rash Verified 05/29/19 20:05 codeine Allergy Unknown HIVES Verified 05/29/19 20:05 pamabrom Allergy Unknown REDMANS Verified 05/29/19 20:05 SYNDROME, SWELLING pyrilamine Allergy Unknown REDMANS Verified 05/29/19 20:05 SYNDROME, SWELLING magnesium AdvReac Severe Hives Verified 05/29/19 20:05 Medications Home Medications Medication Instructions Recorded Confirmed Last Taken PNV cmb#95-ferrous fumarate-FA 1 tab PO QAM 10/20/18 05/29/19 05/26/19 08:00 [] duloxetine 60 mg PO HS 10/20/18 05/29/19 05/28/19 21:00 Active Medications Generic Name Dose Route Start Last Admin Trade Name Freq PRN Reason Stop Dose Admin Duloxetine HCl 60 mg 05/29/19 21:15 05/29/19 21:30 Cymbalta PO 06/28/19 21:14 60 mg PM KERON Administration Lactated Ringer's 1,000 mls @ 125 mls/hr 05/29/19 19:19 05/29/19 21:25 Lr IV 05/31/19 19:18 999 mls/hr .Q8H PRN Infusion L&D Protocol Protocol Oxytocin 30 units in 500 mls @ 5 mls/hr 05/29/19 19:21 05/29/19 21:26 Pitocin IV 05/31/19 19:20 0.3 units/hr .Q24H PRN 5 mls/hr Labor Induction/Augmentation Titration Protocol 0.3 UNITS/HR NPO Date Last Intake of Fluids: 05/29/19 Time Last Intake of Fluids: 21:00 Date Last Intake of Solids: 05/29/19 Time Last Intake of Solids: 14:00 Past Medical History Medical History Migraine (Acute) Ovarian cyst (Resolved) History of depression began approx age 13 taking cymbalta History of hydronephrosis History of kidney stones 2015 and 2018 with pregnancies History of migraine History of varicella Exercise / Class Metabolic Activity II 4-5 Yardwork/Stairs/Walk up hill Past Family History Family History Grandfather (Paternal) Colorectal cancer Father Depression Dyslipidemia Hypertension Grandmother (Maternal) Diabetes Mother Gestational diabetes Kidney stones Premature delivery Grandfather (Maternal) Gestational diabetes Dyslipidemia Hypertension Family/Other Breast cancer maternal great aunt Past Surgical History Surgical History History of appendectomy 2013 History of back surgery 2011 - cage and screws lower back spina bifada at History of cholecystectomy 07/2017 S/P LASIK surgery of both eyes 2015 S/P tonsillectomy approx 2000 S/P wisdom tooth extraction Past Anesthesia History No Hx of Anesthesia Complications and No Family Hx of Anesthesia Complications History of PONV No Hx of PONV and No Hx of Motion Sickness Social History Smoking Status: Former smoker Hx Alcohol Use: No Hx Substance Use: No substance use type: does not use Physical Exam Vital Signs Last Vital Signs Temp 37.0 C 05/29/19 16:56 Pulse 90 05/29/19 21:47 Resp 20 05/29/19 21:09 BP 131/86 05/29/19 21:09 Pulse Ox 99 05/29/19 21:47 Constitutional + obese ENMT Mouth: no dentition abnormality Thyromental Distance: < 3.5 Finger Breadths Mallampati Class: II Neck normal visual inspection and trachea midline; neck extension not limited Respiratory normal respiratory effort Auscultation: lungs clear to auscultation bilaterally Cardiovascular Rate/Rhythm: regular rate and regular rhythm Heart Sounds: no murmur Musculoskeletal Spine: + limited cervical ROM and lumbar spine normal to inspection Neurologic moves all extremities Motor/Sensory: no sensory deficit Psychiatric Orientation: alert and oriented x 3 Testing Laboratory Results 05/29/19 19:34 05/29/19 19:34
[2019-05-29] MEDS ORDERED: ePHEDrine sulfate 50 MG/ML AMP IV PRN (22:14)
[2019-05-29] MEDS ORDERED: NALOXONE HCL 0.4 MG/1 ML VIAL/CARP IV PRN (22:14)
[2019-05-29] MEDS ORDERED: NALOXONE HCL 1 MG in SODIUM CHLORIDE 0.9% 1000ML 1,000 ML IV PRN (22:14)
[2019-05-29] MEDS ORDERED: PROMETHAZINE HCL 25 MG in SODIUM CHLORIDE 0.9% 50 ML IV PRN (22:14)
[2019-05-29] MEDS ORDERED: DiphenhydrAMINE HCL 50 MG/ML VIAL IV PRN (22:14)
[2019-05-29] MEDS ORDERED: NALBUPHINE HCL INJ 10 MG/ML AMP IV PRN (22:14)
[2019-05-30] MEDS: ONDANSETRON INJ 2 MG/ML 2 ML VIAL IV PRN ×2 (02:28→08:22)
[2019-05-30] MEDS: LACTATED RINGER'S 1,000 ML IV PRN ×2 (03:42→11:17)
[2019-05-30] MEDS: fentaNYL 2MCG/ML ROPIV 1.25MG/ML 100 ML BAG EPI PRN ×2 (05:40→11:16)
--- NOTE | 2019-05-30 12:05 | Delivery Summary ---
Vaginal Delivery Summary Date of Service May 30, 2019 Vaginal Delivery Summary Vaginal Delivery Summary: Pre-delivery diagnoses: 23yo @ 38 02/26, IOL for gestational hypertension Post-delivery diagnoses: same Procedure: spontaneous vaginal delivery Surgeon: Kaye Aguilera DO Complications: none Findings: Viable female . Apgars: 9/9 . Weight pending, please see nursery records Estimated blood loss: 300ml Description of delivery: The patient progressed to complete with epidural anesthesia. She then began to push. She spontaneously vaginally delivered a viable from the cephalic presentation. The head delivered in direct OA position. The anterior shoulder delivered, followed by the posterior shoulder, followed by the body. The baby was placed on mother's abdomen and a spontaneous cry was heard. Delayed cord clamping was employed, and the cord was doubly clamped and cut. Cord blood was obtained. The placenta was delivered spontaneously intact with a 3-vessel cord. The uterus and vagina were swept of clots and debris. IV pitocin was given. The uterus became firm. The cervix, vagina, and perineum were inspected and no lacerations were noted. Excellent hemostasis was observed. The mother and baby are recovering in stable and good condition in the room. Sponge and instrument counts were correct x 2. Kaye Aguilera DO [facility] [place]
[2019-05-30] MEDS ORDERED: OXYTOCIN 30 UNITS/500 ML BAG IV PRN (12:56)
[2019-05-30] MEDS ORDERED: DIPHTHERIA/TETANUS/PERTUSSIS 0.5 ML SYR/VIAL IM ONE (12:56)
[2019-05-30] MEDS ORDERED: SUPERCREAM 0.870% 15 GM JAR EXT PRN (12:56)
[2019-05-30] MEDS ORDERED: BENZOCAINE 20% AER SPR 82.5 GM CAN EXT PRN (12:56)
[2019-05-30] MEDS ORDERED: HYDROCORTISONE ACETATE 25 MG SUPP PR PRN (12:56)
[2019-05-30] MEDS ORDERED: IBUPROFEN 600 MG TAB PO ONE (13:00)
--- NOTE | 2019-05-30 13:25 | Anesthesia Procedure Note ---
Date of Service May 30, 2019 Anesthesia Post Epidural Note Vital Signs Vital Signs: Temp Pulse Resp BP Pulse Ox 37.2 C 96 H 20 118/68 99 05/30/19 11:00 05/30/19 13:13 05/30/19 12:43 05/30/19 13:13 05/30/19 11:42 Pain Intensity Bilateral Abdomen: Pain Intensity: 3 Notes Mental Status: alert / awake / arousable Patient Amnestic to Procedure: Yes Nausea / Vomiting: adequately controlled Pain: adequately controlled Airway Patency, RR, SpO2: stable & adequate BP & HR: stable & adequate Hydration State: stable & adequate Neuraxial Anesthesia: was administered and sensory block is resolving Anesthetic Complications: no major complications apparent and Pt Satisfied with anesthetic care Epidural: Removed without complications and With tip intact
[2019-05-30] MEDS: OXYCODONE/ACETAMINOPHEN 5mg/325mg TAB PO PRN ×2 (13:57→18:10)
[2019-05-30] MEDS: IBUPROFEN 600 MG TAB PO PRN (16:45)
[2019-05-30] MEDS: DULOXETINE HCL 60 MG CAP PO SCH (21:00)
[2019-05-30] MEDS: DOCUSATE SODIUM 100 MG CAP PO SCH (21:00)
[2019-05-31] MEDS: ACETAMINOPHEN 325 MG TAB PO PRN ×3 (03:03→21:05)
--- NOTE | 2019-05-31 06:21 | Obstetrical Progress Note ---
Date of Service <Dante Beck MD - Last Filed: 05/31/19 07:02> May 31, 2019 Assessment & Plan <Dante Beck MD - Last Filed: 05/31/19 07:02> (1) Supervision of normal intrauterine in multigravida: on 05/30 PPD#1 -Feels well today, eating well, voiding well, ambulating well -pain well controlled -After discharge will have 6 week follow-up (2) Gestational hypertension: Subjective <Dante Beck MD - Last Filed: 05/31/19 07:02> Feeling well today, having some continued abdominal cramping, able to void without difficulties; continued to have some spotting Eyes: no diplopia and no worsening vision Cardiovascular: no chest pain and no dyspnea Gastrointestinal: no abdominal pain, no nausea, no vomiting, no constipation and no diarrhea/loose stools Physical Exam <Dante Beck MD - Last Filed: 05/31/19 07:02> Cardiovascular Rate/Rhythm: regular rate and regular rhythm Heart Sounds: normal S1 and normal S2; no gallop, no murmur and no cardiac rub Extremities: no edema Genitourinary OB Exam Abdomen: + fundal height Fundus: + firm and + relation to umbilicus (3cm below) Manual OB Exam: + cervical dilation, + cervical effacement, + station and + amniotic fluid OB Exam Monitor Tracing: + external FHT monitor used Results & Data <Dante Beck MD - Last Filed: 05/31/19 07:02> Vital Signs (Past 12 Hours) Vital Signs Temp Pulse Resp BP Pulse Ox 05/31/19 03:10 36.6 C 93 H 16 127/83 99 05/30/19 23:40 36.8 C 92 H 16 130/82 97 05/30/19 19:10 36.9 C 96 H 20 138/84 97 Medications Administered Current Inpatient Medications Acetaminophen (Tylenol) 650 mg PO Q6H PRN PRN Reason: Pain/LEONG/Fever Stop: 06/29/19 12:55 Last Admin: 05/31/19 03:03 Dose: 650 mg Documented by: Benzocaine (Dermoplast Pain Relieving [place]) 1 appln EXT PRN PRN PRN Reason: Perineal Discomfort Stop: 06/29/19 12:55 Bisacodyl (Dulcolax) 5 mg PO 1999 [facility] Stop: 05/31/19 20:01 Bisacodyl (Dulcolax) 10 mg NE DAILY PRN PRN Reason: No BM on 2nd post- day Stop: 07/01/19 05:59 Calcium Carbonate (Tums) 1,500 mg PO Q6 PRN PRN Reason: Indigestion Stop: 06/28/19 21:13 Last Admin: 05/29/19 23:08 Dose: 1,500 mg Documented by: Cocaine HCl (Supercream 0.870%) 1 gm EXT BID PRN PRN Reason: Hemorrhoidal Inflammation Stop: 06/13/19 12:55 Diphenhydramine HCl (Benadryl Capsule) 50 mg PO QID PRN PRN Reason: Itching Stop: 06/29/19 18:19 Last Admin: 05/30/19 21:00 Dose: 50 mg Documented by: Docusate Sodium (Colace) 100 mg PO DAILY@ [facility] Stop: 06/29/19 20:59 Last Admin: 05/30/19 21:00 Dose: 100 mg Documented by: Duloxetine HCl (Cymbalta) 60 mg PO HS [facility] Stop: 06/29/19 20:59 Last Admin: 05/30/19 21:00 Dose: 60 mg Documented by: Hydrocortisone (Anusol Hc) 25 mg NE BID PRN PRN Reason: Hemorrhoidal Inflammation Stop: 06/29/19 12:55 Oxytocin (Pitocin) 30 units in 500 mls @ 333.333 mls/hr IV .Q1H30M PRN; Protocol PRN Reason: Bleeding Control Stop: 06/29/19 12:55 Ibuprofen (Motrin) 600 mg PO Q4H PRN PRN Reason: Pain/LEONG/Cramping/Fever Stop: 06/29/19 12:55 Last Admin: 05/30/19 16:45 Dose: 600 mg Documented by: Oxycodone/Acetaminophen (Percocet 5mg/325mg) 1 tab PO Q4H PRN PRN Reason: Pain not relieved by... Stop: 06/13/19 12:55 Last Admin: 05/30/19 18:10 Dose: 1 tab Documented by: Prenat Multivit/[place]/Iron/Folic Ac ( Vitamin) 1 tab PO DAILY@08 KERON Stop: 06/30/19 07:59 <Kaye Aguilera DO - Last Filed: 05/31/19 07:45> Co-Signing Physician Notes Resident Physician Supervision Note: I interviewed and examined the patient. Discussed with Dr. Beck and agree with findings and plan as documented in the note. Any exceptions or clarifications are listed here: PPD#1 doing well. BP ok. In resident's note above, there is an error stating there is cervical exam and monitoring - this is not the case, as patient is , and we are unable to take this back out of the [facility] system. Documented By: Kaye Aguilera DO Resident Activity Tracking <Dante Beck MD - Last Filed: 05/31/19 07:02> Resident Involvement: Resident Care Provided Care Provided: Adult Hospital Medicine
[2019-05-31 06:52] LABS: Hematocrit (blood only) 32.7 % (37-47); Mean Corpuscular Hemoglobin 28.8 pg (25-34); Mean Corpuscular Hgb Conc 33.6 g/dL (32-36); Mean Corpuscular Volume 85.6 fL (80-100); Platelet Count 209 K/uL (130-400); RDW Coefficient of Variation 13.4 % (11.5-14.5); RDW Standard Deviation 41.5 fL (36.4-46.3); Red Blood Count 3.82 M/uL (4.2-5.4); White Blood Count 12.08 K/uL (4.8-10.8)
[2019-05-31] MEDS: PRENATAL VITAMIN 1 TAB PO SCH (08:16)
[2019-05-31] MEDS: DOCUSATE SODIUM 100 MG CAP PO SCH ×2 (08:16→19:59)
[2019-05-31] MEDS: IBUPROFEN 600 MG TAB PO PRN ×3 (08:18→19:59)
[2019-05-31] MEDS ORDERED: BISACODYL 5 MG TABEC PO SCH (20:00)
[2019-05-31] MEDS: DULOXETINE HCL 60 MG CAP PO SCH (20:00)
[2019-06-01] MEDS: IBUPROFEN 600 MG TAB PO PRN ×2 (03:00→08:39)
[2019-06-01] MEDS ORDERED: BISACODYL 10 MG SUPP PR PRN (06:00)
[2019-06-01] MEDS: ACETAMINOPHEN 325 MG TAB PO PRN (06:19)
[2019-06-01 06:33] LABS: Hematocrit (blood only) 35.2 % (37-47); Hemoglobin 11.7 g/dL (12.0-16.0)
--- NOTE | 2019-06-01 06:50 | Obstetrical Progress Note ---
Date of Service <Dante Beck MD - Last Filed: 06/01/19 06:50> June 01, 2019 Assessment & Plan <Dante Beck MD - Last Filed: 06/01/19 06:50> (1) Supervision of normal intrauterine in multigravida: on 05/30 PPD#2 -Feels well today, eating well, voiding well, ambulating well -pain well controlled -After discharge will have 6 week follow-up (2) Gestational hypertension: Subjective <Dante Beck MD - Last Filed: 06/01/19 06:50> Ms Whipple is a 23y/o female ; PPD #2 following spontaneous vaginal delivery at 38 6/7 weeks; doing well this morning; some persistent abdominal cramping/pain; voiding well and passing gas but no bowel movements at this point; tolerated meals overnight; and able to ambulate some; some persistent spotting with intermittent improvement this morning. Review of Systems Constitutional: denies fever; chills; sweats; headache Respiratory: denies shortness of breath, difficulty breathing Cardiac: denies chest pain; palpitations; chest pressure Breast: denies breast pain : denies dysuria Physical Exam <Dante Beck MD - Last Filed: 06/01/19 06:50> General: alert; oriented; no acute distress Cardiac: RRR; no m/g/r Respiratory: CTAB a/p; no wheezes/rales/rhonchi; no increased work of breathing; symmetrical chest rise; no respiratory distress Abdomen: soft; NT/ND; bowel sounds positive Uterus: uterine fundus firm; palpable 3cm below umbilicus Lower extrem: no lower extremity edema or swelling; no deep calf pain; Remi's sign negative b/l Results & Data <Dante Beck MD - Last Filed: 06/01/19 06:50> Vital Signs (Past 12 Hours) Vital Signs Temp Pulse Resp BP Pulse Ox 05/31/19 22:55 36.6 C 79 16 123/79 97 05/31/19 19:50 36.7 C 89 16 126/83 97 Laboratory Results 06/01/19 05/31/19 Range/Units 06:17 06:31 WBC 12.08 H (4.8-10.8) K/uL RBC 3.82 L (4.2-5.4) M/uL Hgb 11.7 L 11.0 L (12.0-16.0) g/dL Hct 35.2 L 32.7 L (37-47) % MCV 85.6 (80-100) fL MCH 28.8 (25-34) pg MCHC 33.6 (32-36) g/dL RDW Std Deviation 41.5 (36.4-46.3) fL RDW Coeff of Bailey 13.4 (11.5-14.5) % Plt Count 209 (130-400) K/uL MPV 10.0 (7.4-10.4) fL Medications Administered Current Inpatient Medications Acetaminophen (Tylenol) 650 mg PO Q6H PRN PRN Reason: Pain/LEONG/Fever Stop: 06/29/19 12:55 Last Admin: 06/01/19 06:19 Dose: 650 mg Documented by: Benzocaine (Dermoplast Pain Relieving [place]) 1 appln EXT PRN PRN PRN Reason: Perineal Discomfort Stop: 06/29/19 12:55 Bisacodyl (Dulcolax) 10 mg UT DAILY PRN PRN Reason: No BM on 2nd post- day Stop: 07/01/19 05:59 Calcium Carbonate (Tums) 1,500 mg PO Q6 PRN PRN Reason: Indigestion Stop: 06/28/19 21:13 Last Admin: 05/29/19 23:08 Dose: 1,500 mg Documented by: Cocaine HCl (Supercream 0.870%) 1 gm EXT BID PRN PRN Reason: Hemorrhoidal Inflammation Stop: 06/13/19 12:55 Last Admin: 05/31/19 08:16 Dose: 1 gm Documented by: Diphenhydramine HCl (Benadryl Capsule) 50 mg PO QID PRN PRN Reason: Itching Stop: 06/29/19 18:19 Last Admin: 05/31/19 20:00 Dose: 50 mg Documented by: Docusate Sodium (Colace) 100 mg PO DAILY@08,21 KERON Stop: 06/29/19 20:59 Last Admin: 05/31/19 19:59 Dose: 100 mg Documented by: Duloxetine HCl (Cymbalta) 60 mg PO HS KERON Stop: 06/29/19 20:59 Last Admin: 05/31/19 20:00 Dose: 60 mg Documented by: Hydrocortisone (Anusol Hc) 25 mg UT BID PRN PRN Reason: Hemorrhoidal Inflammation Stop: 06/29/19 12:55 Oxytocin (Pitocin) 30 units in 500 mls @ 333.333 mls/hr IV .Q1H30M PRN; Protocol PRN Reason: Bleeding Control Stop: 06/29/19 12:55 Ibuprofen (Motrin) 600 mg PO Q4H PRN PRN Reason: Pain/LEONG/Cramping/Fever Stop: 06/29/19 12:55 Last Admin: 06/01/19 03:00 Dose: 600 mg Documented by: Oxycodone/Acetaminophen (Percocet 5mg/325mg) 1 tab PO Q4H PRN PRN Reason: Pain not relieved by... Stop: 06/13/19 12:55 Last Admin: 05/30/19 18:10 Dose: 1 tab Documented by: Prenat Multivit/[place]/Iron/Folic Ac ( Vitamin) 1 tab PO DAILY@08 KERON Stop: 06/30/19 07:59 Last Admin: 05/31/19 08:16 Dose: 1 tab Documented by: <Yamilet Dupont MD, FACOG - Last Filed: 06/01/19 07:47> Co-Signing Physician Notes Resident Physician Supervision Note: I was present with Dr. Beck during the history and exam. I discussed the case with the resident and agree with the findings and plan as documented in the note. Any exceptions or clarifications are listed here: pt doing well. bps are normal. she denies complaints. ready to go home. ff 2 down. instructions reviewed. f/u 6 wk pp check. Documented By: Yamilet Dupont MD, FACOG Resident Activity Tracking <Dante Beck MD - Last Filed: 06/01/19 06:50> Resident Involvement: Resident Care Provided Care Provided: OB Delivery
[2019-06-01] MEDS: DOCUSATE SODIUM 100 MG CAP PO SCH (08:39)
[2019-06-01] MEDS: PRENATAL VITAMIN 1 TAB PO SCH (08:39)
== END 2019-06-01 12:15 | disposition home or self-care (01) | DRG 807 ==
LOC: OPB 16:50 → 4S1 16:52 → 4S2 05-30 15:17

== ENCOUNTER 2022-05-31 10:07 | Observation (INO) ==
[2022-05-31] MEDS ORDERED: ONDANSETRON INJ 2 MG/ML 2 ML VIAL IV STA (10:56)
[2022-05-31] MEDS ORDERED: HYDROmorphone INJ 0.5 MG/0.5 ML SYR IV STA ×4 (10:56→14:56)
[2022-05-31] MEDS ORDERED: SODIUM CHLORIDE 0.9% 1000ML 1,000 ML IV SCH (10:57)
[2022-05-31] MEDS ORDERED: KETOROLAC TROMETHAMINE 15 MG/ML VIAL IV ONE (11:05)
[2022-05-31 11:19] LABS: Appearance Urine Clear (Clear); Basophils # (auto) 0.04 K/uL (0-0.2); Basophils % (auto) 0.5 %; Bilirubin Urine Negative (Negative); Blood Urine 2+ (Negative); Color Urine Yellow; Eosinophils # (auto) 0.12 K/uL (0-0.50); Eosinophils % (auto) 1.4 %; Epithelial Cell Urine Auto 20-30 /lpf (0-5); Glucose Urine UA Negative (Negative); Hematocrit (blood only) 45.6 % (34.1-44.9); Hemoglobin 15.9 g/dl (12.0-16.0); Immature Granulocytes # (auto) 0.03 K/uL (0.00-0.02); Immature Granulocytes % (auto) 0.4 %; Ketones Urine Negative (Negative); Leukocyte Esterase Urine Trace (Negative); Lymphocytes # (auto) 2.96 K/uL (1.2-3.4); Lymphocytes % (auto) 35.3 %; Mean Corpuscular Hemoglobin 29.2 pg (25.0-34.0); Mean Corpuscular Hgb Conc 34.9 g/dL (32.0-36.0); Mean Corpuscular Volume 83.8 fL (80.0-100.0); Mean Platelet Volume 9.6 fL (9.4-12.3); Neutrophils # (auto) 4.73 K/uL (1.4-6.5); Neutrophils % (auto) 56.4 %; Nitrite Urine Negative (Negative); Platelet Count 401 K/uL (130-400); Protein Urine Negative (Negative); RBC Urine Automated 0-4 /hpf (0-4); RDW Coefficient of Variation 12.8 % (11.5-14.5); RDW Standard Deviation 38.8 fL (36.4-46.3); Red Blood Count 5.44 M/uL (3.93-5.22); Specific Gravity Urine 1.004 (1.000-1.030); Urobilinogen Urine Negative (Negative); White Blood Count 8.38 K/ul (4.8-10.8)
[2022-05-31 11:36] LABS: Bacteria Urine Automated 2+ (Negative)
[2022-05-31 11:37] LABS: Cast Urine Automated 0 /lpf (0-5)
--- NOTE | 2022-05-31 11:38 | XRay Report ---
KUB CLINICAL HISTORY: Left flank pain. FINDINGS: 2 AP supine abdominal radiographs are compared to study dated 02/12/2017 and correlated with abdominal CT dated 01/12/2022. Cholecystectomy clips are noted in the right upper quadrant. There is no bowel obstruction. Mild fecal retention is seen throughout the colon. No evidence of intraperitone al free air is identified on the supine images. Indeterminant foreign bodies project over the left lo wer quadrant. No abnormal abdominal calcifications are identified. There are tiny pelvic phleboliths. The bony structures appear intact. Postoperative change is noted at the lumbosacral junction. IMPRESSION: 1. No acute abnormality is identified. 2. Radiodense foreign bodies project over the left lower quadrant and may be external to the patient. Clinical correlation will be required. 3. Kidney stones seen on the prior abdominal CT scan are not visualized by x-ray. Electronically signed by: Rafat Monique M.D. 05/31/2022 11:37 AM
[2022-05-31 11:40] LABS: Albumin Globulin Ratio 1.4 (0.9-2); Albumin Level 4.3 gm/dl (3.4-5.0); BUN Creatinine Ratio 13.4 (10-20); Bilirubin,Total 0.6 mg/dl (0.2-1.0); Calcium 9.5 mg/dl (8.5-10.1); Creatinine Clr Calc Pharmacy 80.8 ml/min; Est GFR (African American) 112.9 ml/min; Est GFR (Non-African American) 97.4 ml/min; Globulin 3.1 gm/dl (2.5-4.0); Potassium 3.7 mmol/L (3.5-5.1); Total Protein 7.4 gm/dl (6.0-8.3)
--- NOTE | 2022-05-31 12:01 | Ultrasound Report ---
RENAL ULTRASOUND CLINICAL HISTORY: R flank pain, kidney stone. COMPARISON STUDY: Renal ultrasound July 10, 2020. CT of the abdomen and pelvis January 12, 2022. TECHNIQUE: Sonography of the kidneys and the urinary bladder was performed. FINDINGS: Right kidney measures 10.2 cm in maximal dimension and the left measures 10.5 cm. There is no hydronephrosis. Renal echogenicity, size and cortical thickness are normal. A 3 mm left renal calc ulus is noted. Both ureteral jets were identified. Bladder is unremarkable. IMPRESSION: 1. No hydronephrosis. 2. 3 mm left renal calculus. ACT 112: Negative or not required by law. Electronically signed by: Miguel Lester M.D. 05/31/2022 11:59 AM
--- NOTE | 2022-05-31 14:50 | CT Scan Report ---
CT OF THE ABDOMEN AND PELVIS WITHOUT CONTRAST CLINICAL HISTORY: Right flank pain. COMPARISON STUDY: CT of the abdomen and pelvis January 12, 2022. KUB and renal ultrasound May 31, 2022. TECHNIQUE: Axial images of the abdomen and pelvis were obtained without IV contrast. Images were revi ewed in the axial, sagittal, and coronal planes. Automated exposure control was utilized for the shelia dy. A dose lowering technique was utilized adhering to the principles of ALARA. FINDINGS: Lung bases are unremarkable. No pneumatosis, free air or portal venous gas is present. Ther e are several small left renal calculi that measure up to 3 mm. There are no left ureteral calculi. T here is no hydronephrosis. An 8 mm x 5 mm right abdominal calcification on axial image 282 of 436 rep resents a nonobstructing mid ureteral calculus. This calculus was within the right kidney on CT of Ap ril 2021. There are no additional ureteral calculi. Evaluation of the remainder of the abdomen an d pelvis is suboptimal on this unenhanced exam. There is no biliary ductal dilatation status post cho lecystectomy. Spleen, adrenal glands and pancreas are unremarkable. There is no evidence for a bowel obstruction. The appendix is not visualized. No ascites is present. Postoperative findings within the lumbosacral spine are noted. Left sacroiliac joint fusion is noted. IMPRESSION: 1. Nonobstructing 8 mm x 5 mm mid right ureteral calculus. No hydronephrosis. 2. Left-sided nephrolithiasis. 3. No bowel obstruction. ACT 112: Negative or not required by law. Electronically signed by: Miguel Lester M.D. 05/31/2022 2:49 PM
[2022-05-31] MEDS ORDERED: ACETAMINOPHEN 1,000 MG/100 ML VIAL IV STA (14:56)
--- NOTE | 2022-05-31 15:14 | History & Physical Report ---
Date of Service May 31, 2022 Assessment & Plan (1) Renal calculi: Plan: (2) Anxiety and depression: (3) Migraine: Plan 26 year old female who presented with abdominal pain. Abdominal/pelvic CT: Nonobstructing 8 mm x 5 mm mid right ureteral calculus. No hydronephrosis. Urology consult placed; will admit for possible surgery, pain management. Renal Calculi without obstruction or hydronephrosis: -Abdominal/pelvic CT: Nonobstructing 8 mm x 5 mm mid right ureteral calculus. No hydronephrosis. -No leukocytosis WBC 8.38. Afebrile; slightly tachycardic 107. -Pain management with IV Dilaudid and Ketorolac -IV Fluids LR at 60ml/hour -ECG pre-op -Hgb 15.9 -Urology Consult for possible surgical intervention and stent placement. Discussed with Dr. Aleksandr York -NPO; pt last ate this AM at 0800 -Negative urine test Anxiety and Depression: Takes duloxetine; continue Migraines: Takes control and Topiramate; continue Uses medical marijuana Disposition: PCP: Dr. Viramontes Code status: full code VTE prophylaxis: Teds Plan to return home at [place] History of Present Illness Chief Complaint: flank pain Primary Care Provider: Sonido Viramontes MD Patient presented to the ED with intractable abdominal pain. An abdominal/pelvic CT was performed and results revealed an 8mm x 5mm mid right ureteral calculus without hydronephrosis. The patient has had on and off hematuria since her SI joint surgery that was performed on January 01, 2022. She had a CT of her abd/pelvis performed in the ED in December for fever, SI joint pain, and hematuria. She was found to have bilateral kidney stones without obstruction and was due to see Urology on two separate occasions, one of which was today and the appointment was cancelled. Additional PMH includes: SIJ fusion, anxiety/depression and spina bifida for which she had surgery with cage/screw placement in 2011. Patient will be admitted for observation, medical management and Urology consultation. Please see A/P for further details. Allergies Allergy/AdvReac Type Severity Reaction Status Date / Time cephalexin Allergy Unknown rash Verified 05/31/22 14:56 codeine Allergy Unknown HIVES Verified 05/31/22 14:56 pamabrom Allergy Unknown REDMANS Verified 05/31/22 14:56 SYNDROME, SWELLING magnesium AdvReac Severe Hives Verified 05/31/22 14:56 Home Medications Medication Instructions Recorded Confirmed Type duloxetine 60 mg capsule,delayed 60 mg PO HS 01/12/22 05/31/22 History release ibuprofen 600 mg tablet 600 mg PO Q8H PRN Pain 01/12/22 05/31/22 History ondansetron HCl 4 mg tablet 4 mg PO Q8H PRN nausea and 01/12/22 05/31/22 Rx vomiting #20 tabs norethindrone 1.5 mg-ethinyl 1 tab PO HS #84 tabs 05/17/22 05/31/22 Rx estradiol 30 mcg(21)/iron 75 mg(7) tablet (Yumi Fe 1.5/30 (28)) buspirone 15 mg tablet 15 mg PO TID 05/31/22 05/31/22 History tamsulosin 0.4 mg capsule 0.4 mg PO QAM 05/31/22 05/31/22 History topiramate 50 mg tablet See Rx Instructions .Route .COMPLEX 05/31/22 05/31/22 History tramadol 50 mg tablet (Ultram) 50 mg PO Q6H PRN pain #20 tabs 05/31/22 Rx Past Med/Surg History Medical History Anxiety and depression Gestational hypertension History of hydronephrosis History of kidney stones 2015 and 2018 with pregnancies History of varicella Ovarian cyst Renal calculi UTI (urinary tract infection) Surgical History Axillary accessory breast tissue (08/24/19) s/p excision bilateral axillary breast tissue History of appendectomy 2013 History of back surgery 2011 - cage and screws lower back spina bifada at History of cholecystectomy 07/2017 S/P fusion of sacroiliac joint 2021 S/P LASIK surgery of both eyes 2014 S/P tonsillectomy approx 2000 S/P wisdom tooth extraction Family History Grandfather (Paternal) Colorectal cancer Father Depression Dyslipidemia Hypertension Grandmother (Maternal) Diabetes Mother Gestational diabetes Kidney stones Premature delivery Grandfather (Maternal) Gestational diabetes Dyslipidemia Hypertension Family/Other Breast cancer maternal great aunt Denies family history of Ovarian cancer Social History Smoking Status: Never smoker Tobacco Type: Cigarettes Second Hand Exposure: No; Hx Alcohol Use: Yes Alcohol type: wine Hx Substance Use: Yes Prescribed Medications: Marijuana Preferred Language: Mosotho Communication Ability: Effective Cherry Picker Operator Required: No Beliefs That Will Affect Care: None marital status: Current Living Situation: Spouse Current Living Situation Comment: and daughter current occupational status: employed Feels Safe at Home: Yes Assistive Devices: Contacts and Glasses Review of Systems Review of Systems: Neuro: (-) Falls, trauma, slurred speech HEENT: (-) LEONG, dizziness, dysphagia, visual or auditory changes CV: (-) CP, palpitations, swelling Resp: (-) SOB GI: (-) appetite changes, (+) abdominal pain RLQ with radiation to right flank : (-) urinary changes Skin: (-) rashes Psych: (-) anxiety, depression Physical Exam Physical Exam: Neuro: AAOx4, PERRLA, no aphagia, memory changes, CNII-XII grossly intact HEENT: head normocephalic, moist mucus membranes CV: S1/S2, (-) M/G/R, (-) edema, cap refill < 3 seconds Resp: Lungs CTA in all skaggs. On RA GI: Abdomen generally tender, RLQ with Right flank radiation. Non distended. Ax4 bowel sounds, (+)right-sided CVA tenderness Musculoskeletal: 5/5 B/L UE strength, 5/5 B/L LE strength. No gait disturbance Skin: (-) rashes , (-) erythema. Psych: tearful but cooperative mood Results & Data Results & Data ([facility]) Vital Signs (Past 12 Hours) Vital Signs Temp Pulse Pulse Resp BP BP Pulse Ox 05/31/22 14:43 106 H 16 99 05/31/22 12:15 89 16 119/78 98 05/31/22 10:35 37 C 110 H 18 151/103 H 97 O2 Del Method 05/31/22 14:43 Room Air 05/31/22 12:15 Room Air 05/31/22 10:35 Room Air Laboratory Results Short CBC 05/31/22 Range/Units 10:54 WBC 8.38 (4.8-10.8) K/ul Hgb 15.9 (12.0-16.0) g/dl Hct 45.6 H (34.1-44.9) % Plt Count 401 H (130-400) K/uL BMP 05/31/22 10:54 Sodium 137 Potassium 3.7 Chloride 106 Carbon Dioxide 23 BUN 11 Creatinine 0.82 Glucose 96 Calcium 9.5 Liver Function 05/31/22 Range/Units 10:54 Total Bilirubin 0.6 (0.2-1.0) mg/dl AST 16 (13-39) U/L ALT 21 (7-52) U/L Alkaline Phosphatase 55 (34-104) U/L Albumin 4.3 (3.4-5.0) gm/dl Urine 05/31/22 Range/Units 10:54 Urine Color Yellow Urine Appearance Clear (Clear) Urine pH 6.0 (4.5-7.5) Ur Specific [place] 1.004 (1.000-1.030) Urine Protein Negative (Negative) Urine Glucose (UA) Negative (Negative) Diagnostic Findings KUB X-Ray 05/31/22 10:56 KUB CLINICAL HISTORY: Left flank pain. FINDINGS: 2 AP supine abdominal radiographs are compared to study dated 02/12/2017 and correlated with abdominal CT dated 01/12/2022. Cholecystectomy clips are noted in the right upper quadrant. There is no bowel obstruction. Mild fecal retention is seen throughout the colon. No evidence of intraperitoneal free air is identified on the supine images. Indeterminant foreign bodies project over the left lower quadrant. No abnormal abdominal calcifications are identified. There are tiny pelvic phleboliths. The bony structures appear intact. Postoperative change is noted at the lumbosacral junction. IMPRESSION: 1. No acute abnormality is identified. 2. Radiodense foreign bodies project over the left lower quadrant and may be external to the patient. Clinical correlation will be required. 3. Kidney stones seen on the prior abdominal CT scan are not visualized by x- ray. Electronically signed by: Rafat Monique M.D. 05/31/2022 11:37 AM Renal Ultrasound 05/31/22 10:56 RENAL ULTRASOUND CLINICAL HISTORY: R flank pain, kidney stone. COMPARISON STUDY: Renal ultrasound July 10, 2020. CT of the abdomen and pelvis January 12, 2022. TECHNIQUE: Sonography of the kidneys and the urinary bladder was performed. FINDINGS: Right kidney measures 10.2 cm in maximal dimension and the left measures 10.5 cm. There is no hydronephrosis. Renal echogenicity, size and cortical thickness are normal. A 3 mm left renal calculus is noted. Both ureteral jets were identified. Bladder is unremarkable. IMPRESSION: 1. No hydronephrosis. 2. 3 mm left renal calculus. ACT 112: Negative or not required by law. Electronically signed by: Miguel Lester M.D. 05/31/2022 11:59 AM Abdomen/Pelvis CT 05/31/22 13:21 CT OF THE ABDOMEN AND PELVIS WITHOUT CONTRAST CLINICAL HISTORY: Right flank pain. COMPARISON STUDY: CT of the abdomen and pelvis January 12, 2022. KUB and renal ultrasound May 31, 2022. TECHNIQUE: Axial images of the abdomen and pelvis were obtained without IV contrast. Images were reviewed in the axial, sagittal, and coronal planes. Automated exposure control was utilized for the study. A dose lowering technique was utilized adhering to the principles of ALARA. FINDINGS: Lung bases are unremarkable. No pneumatosis, free air or portal venous gas is present. There are several small left renal calculi that measure up to 3 mm. There are no left ureteral calculi. There is no hydronephrosis. An 8 mm x 5 mm right abdominal calcification on axial image 282 of 436 represents a nonobstructing mid ureteral calculus. This calculus was within the right kidney on CT of January 12, 2022. There are no additional ureteral calculi. Evaluation of the remainder of the abdomen and pelvis is suboptimal on this unenhanced exam. There is no biliary ductal dilatation status post cholecystectomy. Spleen, adrenal glands and pancreas are unremarkable. There is no evidence for a bowel obstruction. The appendix is not visualized. No ascites is present. Postoperative findings within the lumbosacral spine are noted. Left sacroiliac joint fusion is noted. IMPRESSION: 1. Nonobstructing 8 mm x 5 mm mid right ureteral calculus. No hydronephrosis. 2. Left-sided nephrolithiasis. 3. No bowel obstruction. ACT 112: Negative or not required by law. Electronically signed by: Miguel Lester M.D. 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 Patient reports last spontaneous passing of stone in December associated with hematuria. Admitting labs reviewed, no leukocytosis, no signs/symptoms of UTI, monitor off of antibiotic. CTAP with right and left nephrolithiasis without hydronephrosis, discussed with urology, n.p.o. for now, urology to eval for possible OR today. Pain management with prn dilaudid and ketorolac and Tylenol. IV fluids, home tamsulosin. Upon examination: GENERAL: Alert and oriented x3. NAD, on RA. HEENT: No pallor, no icterus. Pupils equal, round and reactive to light. Oral mucosa moist. NECK: No JVD, no neck masses. HEART: S1 and S2 heard. Regular rate and rhythm. No murmur, no gallop. RESPIRATORY SYSTEM: Normal AP diameter. No accessory muscle use. No wheezing, no crackles. ABDOMEN: Soft, bowel sounds present, nontender, no distention. CENTRAL NERVOUS SYSTEM: No facial droop. Speech is clear. Obeys simple commands. Moves extremities. EXTREMITIES: No edema, no erythema seen. No CVA angle tenderness. I have seen and examined the patient and have discussed the case with the provider above. I agree with the assessment and plan as stated.
--- NOTE | 2022-05-31 15:41 | Urology Consultation ---
Date of Consultation May 31, 2022 Assessment & Plan (1) Right distal ureteral calculus: Plan 26-year-old female with right flank pain and a CT scan showing a likely 8 mm mid to right distal ureteral calculus. It is somewhat hard to track the ureter on her scan and there is no hydronephrosis, however given her symptoms and review of previous CT scan that did show the same size stone in her kidney, I do suspect this is an obstructing ureteral calculus. Additionally, her urine is concerning for infection. I discussed this with both her and her mother and recommended that we place a stent both for pain control and for concern for infection To the OR for cystoscopy, right retrograde pyelogram and ureteral stent placement Risks and benefits discussed including but not limited to anesthesia risk, pain, bleeding, infection, damage to urethra, bladder, ureter or kidney, inability to place stent, and need for nephrostomy tube. Consent obtained. Patient marked Medicine team starting ceftriaxone History of Present Illness Reason for Consultation: Right urolithiasis History of Present Illness 26-year-old female presented emergency department with right flank pain. She was afebrile with stable vitals. Labs showed a white blood cell count of 8.38, creatinine 0.82 and a urinalysis that had negative nitrites, trace leukocyte Estrace, 5-10 WBCs, 0-4 RBCs and 2+ bacteria. She underwent a CT scan which I independently reviewed. This does not show any right hydronephrosis but does show a calcification in the right mid to distal ureter. As she is quite thin, the lack of fat planes do make this somewhat difficult to trace the ureter down but the calcification does appear to be in the ureter. Review of a previous CT scan did show that she had a similar sized stone in her right kidney. She has not had any previous stones. She does have a history of spina bifida occulta and recently had a lower lumbar surgery. She also has had her gallbladder removed. She smokes medical marijuana. She does have a family history positive for kidney stones. She has a history of migraines and is on Topamax which is likely contributing to her stone formation. Allergies Allergy/AdvReac Type Severity Reaction Status Date / Time cephalexin Allergy Unknown rash Verified 05/31/22 14:56 codeine Allergy Unknown HIVES Verified 05/31/22 14:56 pamabrom Allergy Unknown REDMANS Verified 05/31/22 14:56 SYNDROME, SWELLING magnesium AdvReac Severe Hives Verified 05/31/22 14:56 Home Medications Medication Instructions Recorded Confirmed Type duloxetine 60 mg capsule,delayed 60 mg PO HS 01/12/22 05/31/22 History release ibuprofen 600 mg tablet 600 mg PO Q8H PRN Pain 01/12/22 05/31/22 History ondansetron HCl 4 mg tablet 4 mg PO Q8H PRN nausea and 01/12/22 05/31/22 Rx vomiting #20 tabs norethindrone 1.5 mg-ethinyl 1 tab PO HS #84 tabs 05/17/22 05/31/22 Rx estradiol 30 mcg(21)/iron 75 mg(7) tablet (Yumi Fe 1.5/30 (28)) buspirone 15 mg tablet 15 mg PO TID 05/31/22 05/31/22 History tamsulosin 0.4 mg capsule 0.4 mg PO QAM 05/31/22 05/31/22 History topiramate 50 mg tablet See Rx Instructions .Route .COMPLEX 05/31/22 05/31/22 History tramadol 50 mg tablet (Ultram) 50 mg PO Q6H PRN pain #20 tabs 05/31/22 Rx Patient History Medical History Anxiety and depression Gestational hypertension History of hydronephrosis History of kidney stones 2015 and 2018 with pregnancies History of varicella Ovarian cyst Renal calculi UTI (urinary tract infection) Surgical History Axillary accessory breast tissue (08/24/19) s/p excision bilateral axillary breast tissue History of appendectomy 2013 History of back surgery 2011 - cage and screws lower back spina bifada at History of cholecystectomy 07/2017 S/P fusion of sacroiliac joint 2021 S/P LASIK surgery of both eyes 2014 S/P tonsillectomy approx 2000 S/P wisdom tooth extraction Family History Grandfather (Paternal) Colorectal cancer Father Depression Dyslipidemia Hypertension Grandmother (Maternal) Diabetes Mother Gestational diabetes Kidney stones Premature delivery Grandfather (Maternal) Gestational diabetes Dyslipidemia Hypertension Family/Other Breast cancer maternal great aunt Denies family history of Ovarian cancer Social History Smoking Status: Never smoker Tobacco Type: Cigarettes Second Hand Exposure: No; Hx Alcohol Use: Yes Alcohol type: wine Hx Substance Use: Yes Prescribed Medications: Marijuana Preferred Language: Montenegrin Communication Ability: Effective Line Decorator Required: No Beliefs That Will Affect Care: None marital status: Current Living Situation: Spouse Current Living Situation Comment: and daughter current occupational status: employed Feels Safe at Home: Yes Assistive Devices: Contacts and Glasses Review of Systems Review of Systems: 14 point review of systems negative outside of what is listed above in HPI Physical Exam Physical Exam: General: Alert and oriented, no acute distress HEENT: Normocephalic, mucous membranes moist Pulmonary: Nonlabored respirations Abdomen: Nondistended Extremities: Moves all 4 spontaneously Neuro: No gross deficits Skin: Warm, dry, no rashes noted Results & Data ([facility]) Vital Signs (Past 12 Hours) Vital Signs Temp Pulse Pulse Resp BP BP Pulse Ox 05/31/22 14:43 106 H 16 99 05/31/22 12:15 89 16 119/78 98 05/31/22 10:35 37 C 110 H 18 151/103 H 97 O2 Del Method 05/31/22 14:43 Room Air 05/31/22 12:15 Room Air 05/31/22 10:35 Room Air PG Care Time/CCT Total # of Minutes Spent Total Time Spent with Patient: Total time spent is greater than 50% in coordination of care (as documented) at patient's floor/unit and/or counseling patient: Coding Level of Care Code 40524 Inpt Consult Level 5 Diagnoses Right distal ureteral calculus N20.1
[2022-05-31] MEDS ORDERED: ONDANSETRON INJ 2 MG/ML 2 ML VIAL ONE (15:53)
[2022-05-31] MEDS ORDERED: PROPOFOL IV EMULSION 10 MG/ML 20 ML VIAL IV ONE (15:53)
[2022-05-31] MEDS ORDERED: DEXAMETHASONE SOD INJ 4 MG/ML VIAL ONE (15:53)
[2022-05-31] MEDS ORDERED: MIDAZOLAM HCL 1 MG/ML 2ML VIAL ONE (15:53)
[2022-05-31] MEDS ORDERED: LIDOCAINE 2% MPF LOCAL 5 ML VIAL INFIL ONE (15:53)
[2022-05-31] MEDS ORDERED: KETOROLAC 30 MG/ML VIAL ONE (15:53)
[2022-05-31] MEDS ORDERED: fentaNYL citrate 100 MCG/2 ML VIAL ONE (15:54)
--- NOTE | 2022-05-31 16:04 | Anesthesiology Consultation ---
Date of Service May 31, 2022 Assessment & Plan Chart Review Chart Review: Acceptable Risk for Surgery and Patient NOT seen in Pre Admission Testing Consults Requested none ASA [id number] Proposed Anesthesia Anesthesia Type: MAC History Surgery Operation Date: 05/31/22 12:10 Proposed Procedures p Cystoscopy, Right Ureteral Stent Insertion - Aleksandr York MD Height/Weight Height: 5 ft 2 in Weight: 51.7 kg Allergies Allergy/AdvReac Type Severity Reaction Status Date / Time cephalexin Allergy Unknown rash Verified 05/31/22 14:56 codeine Allergy Unknown HIVES Verified 05/31/22 14:56 pamabrom Allergy Unknown REDMANS Verified 05/31/22 14:56 SYNDROME, SWELLING magnesium AdvReac Severe Hives Verified 05/31/22 14:56 Medications Home Medications Medication Instructions Recorded Confirmed Last Taken duloxetine 60 mg capsule,delayed 60 mg PO HS 01/12/22 05/31/22 01/11/22 release ibuprofen 600 mg tablet 600 mg PO Q8H PRN Pain 01/12/22 05/31/22 01/11/22 ondansetron HCl 4 mg tablet 4 mg PO Q8H PRN nausea and 01/12/22 05/31/22 Unknown vomiting #20 tabs norethindrone 1.5 mg-ethinyl 1 tab PO HS #84 tabs 05/17/22 05/31/22 Unknown estradiol 30 mcg(21)/iron 75 mg(7) tablet (Yumi Fe 1.5/30 (28)) buspirone 15 mg tablet 15 mg PO TID 05/31/22 05/31/22 Unknown tamsulosin 0.4 mg capsule 0.4 mg PO QAM 05/31/22 05/31/22 Unknown topiramate 50 mg tablet See Rx Instructions .Route .COMPLEX 05/31/22 05/31/22 Unknown tramadol 50 mg tablet (Ultram) 50 mg PO Q6H PRN pain #20 tabs 05/31/22 Unknown Past Medical History Medical History Anxiety and depression Gestational hypertension History of hydronephrosis History of kidney stones 2015 and 2019 with pregnancies History of varicella Ovarian cyst Renal calculi UTI (urinary tract infection) Exercise / Class Metabolic Activity II 4-5 Yardwork/Stairs/Walk up hill Past Family History Family History Grandfather (Paternal) Colorectal cancer Father Depression Dyslipidemia Hypertension Grandmother (Maternal) Diabetes Mother Gestational diabetes Kidney stones Premature delivery Grandfather (Maternal) Gestational diabetes Dyslipidemia Hypertension Family/Other Breast cancer maternal great aunt Denies family history of Ovarian cancer Past Surgical History Surgical History Axillary accessory breast tissue (08/24/19) s/p excision bilateral axillary breast tissue History of appendectomy 2013 History of back surgery 2011 - cage and screws lower back spina bifada at History of cholecystectomy 07/2017 S/P fusion of sacroiliac joint 2021 S/P LASIK surgery of both eyes 2014 S/P tonsillectomy approx 2000 S/P wisdom tooth extraction Past Anesthesia History No Hx of Anesthesia Complications and No Family Hx of Anesthesia Complications History of PONV No Hx of PONV and No Hx of Motion Sickness Social History Smoking Status: Never smoker Hx Alcohol Use: Yes Alcohol type: wine alcohol intake frequency: a few times a month Hx Substance Use: Yes substance use type: does not use Physical Exam Vital Signs Last Vital Signs Temp 37 C 05/31/22 10:35 Pulse 77 05/31/22 15:45 Resp 16 05/31/22 15:45 BP 119/78 05/31/22 12:15 Pulse Ox 100 05/31/22 15:45 O2 Del Method 05/31/22 15:45 Testing Laboratory Results 05/31/22 10:54 05/31/22 10:54 Urine Color Yellow 05/31/22 10:54 Urine Appearance Clear (Clear) 05/31/22 10:54 Urine pH 6.0 (4.5-7.5) 05/31/22 10:54 Ur Specific [place] 1.004 (1.000-1.030) 05/31/22 10:54 Urine Protein Negative (Negative) 05/31/22 10:54 Urine Glucose (UA) Negative (Negative) 05/31/22 10:54 Urine Ketones Negative (Negative) 05/31/22 10:54 Urine Nitrite Negative (Negative) 05/31/22 10:54 Ur Leukocyte Esterase Trace (Negative) H 05/31/22 10:54 Urine WBC (Auto) 5-10 /hpf (0-5) H 05/31/22 10:54 Urine RBC (Auto) 0-4 /hpf (0-4) 05/31/22 10:54 U Hyaline Cast (Auto) 0 /lpf (0-5) 05/31/22 10:54 U Epithel Cells (Auto) 20-30 /lpf (0-5) H 05/31/22 10:54 Urine Bacteria (Auto) 2+ (Negative) H 05/31/22 10:54 05/31/22 10:54 POC Ur Test NEG Electrocardiogram Date: 01/12/22 Findings: + NSR @ (@ 75 w/SA)
[2022-05-31] MEDS ORDERED: LACTATED RINGER'S 1,000 ML IV SCH (16:15)
[2022-05-31] MEDS ORDERED: KETOROLAC TROMETHAMINE 15 MG/ML VIAL IV PRN ×2 (16:46→16:51)
[2022-05-31] MEDS ORDERED: FLUMAZENIL 0.1 MG/1 ML 10 ML VIAL IV PRN (17:19)
[2022-05-31] MEDS ORDERED: ATROPINE SULFATE 0.1 MG/ML 10ML SYR IV PRN (17:19)
[2022-05-31] MEDS ORDERED: ONDANSETRON INJ 2 MG/ML 2 ML VIAL IV PRN (17:19)
[2022-05-31] MEDS ORDERED: NALOXONE HCL 0.4 MG/1 ML VIAL/CARP IV PRN (17:19)
[2022-05-31] MEDS ORDERED: PROMETHAZINE HCL 12.5 MG in SODIUM CHLORIDE 0.9% 50 ML IV PRN (17:19)
[2022-05-31] MEDS ORDERED: fentaNYL citrate 100 MCG/2 ML VIAL IV PRN (17:19)
[2022-05-31] MEDS ORDERED: ePHEDrine sulfate 50 MG/ML AMP IV PRN (17:19)
[2022-05-31] MEDS ORDERED: cefTRIAXone SODIUM 2,000 MG/70 ML BAG IV STA (17:23)
[2022-05-31] MEDS ORDERED: KETAMINE 50 MG/5 ML SYRINGE ONE (17:37)
--- NOTE | 2022-05-31 17:56 | Post Operative Brief Note ---
PG Immediate Post Op with CF Date of Surgery May 31, 2022 Pre & Post Diagnosis Operation Date: 05/31/22 12:10 Pre-Op Diagnosis: KIDNEY STONE, ABDOMINAL PAIN, BLOOD CLOT Post-Op Diagnosis: KIDNEY STONE, ABDOMINAL PAIN, BLOOD CLOT I identified the patient and participated in the time-out.: Yes Procedure Operation Date: 05/31/22 12:10 Actual Procedures p Cystoscopy, right retrograde pyelogram right Ureteral Stent Insertion(Right) - Aleksandr York MD Surgeon Aleksandr York MD Laborer/Key Man None Estimated Blood Loss 0 Findings See Below Right retrograde pyelogram showed no hydronephrosis consistent with previous CT scan findings. Stent in appropriate position. Drains Other (6 [place] by 26 mm right ureteral stent) Complications none
--- NOTE | 2022-05-31 18:14 | Operative Report ---
PG Post Operative Report Pre & Post Diagnosis Operation Date: 05/31/22 12:10 Pre-Op Diagnosis: KIDNEY STONE, ABDOMINAL PAIN, BLOOD CLOT Post-Op Diagnosis: KIDNEY STONE, ABDOMINAL PAIN, BLOOD CLOT I identified the patient and participated in the time-out.: Yes Procedure Operation Date: 05/31/22 12:10 Actual Procedures p Cystoscopy, right retrograde pyelogram with radiographic interpretation, Right Ureteral Stent Insertion(Right) - Aleksandr York MD Surgeon Aleksandr York MD Plant Physiology Teacher None Estimated Blood Loss 0 Findings See Below -Retrograde pyelogram showed no hydronephrosis but that was consistent with the CT scan. There is no obvious stone on x-ray but it was not seen on previous KUB and she also has hardware obscuring that area. -Stent in appropriate position. -There did appear to be some obstructed urine that began to pass once a wire was fed into the upper pole of the kidney. Specimens None Drains 6 Malagasy by 26 cm right ureteral stent Anesthesia Type MAC Complications none Indications 26-year-old female with right flank pain and CT scan findings showing a right mid to distal ureteral calculus without hydronephrosis. Due to symptoms and urinalysis concerning for infection, opted for stent placement. Description of Procedure After informed consent was obtained, the patient was transported operative suite. MAC anesthesia was induced. The patient was placed in dorsolithotomy position prepped and draped in a sterile fashion. They received preoperative ceftriaxone for antibiotic prophylaxis. An appropriate surgical timeout was performed. A 22 Malagasy rigid scope was inserted per urethra into the bladder. Martins cystoscopy revealed no stones or lesions. I turned my attention the right ureteral orifice and intubated this with a 5 Malagasy open-ended catheter. A right retrograde pyelogram was shot which showed no hydronephrosis. A sensor wire was advanced into the kidney and confirmed fluoroscopically. A 6 Malagasy by 26 cm right ureteral stent was deployed with a good proximal coil in the renal pelvis and a good distal coil noted in the bladder, confirmed fluoroscopically and under direct visualization, respectively. The bladder was emptied and the scope was removed. This concluded the end of the case. All counts were correct at the end of the case. I was present, scrubbed, and actively participated for the entirety of the procedure. I attest to the content of the Intraoperative Record and any orders documented therein. Any exceptions are noted below.
--- NOTE | 2022-05-31 18:25 | Anesthesiology Progress Note ---
Date of Service May 31, 2022 Anesthesia Post Procedure Vital Signs Vital Signs: Temp Pulse Pulse Resp BP BP Pulse Ox 05/31/22 18:20 36.7 C 84 17 126/89 100 05/31/22 18:10 82 21 123/85 100 05/31/22 18:03 36.6 C 85 20 122/81 100 05/31/22 17:05 37 C 92 H 16 136/99 99 05/31/22 17:00 76 18 126/91 98 05/31/22 15:45 77 16 100 05/31/22 14:43 106 H 16 99 05/31/22 12:15 89 16 119/78 98 05/31/22 10:35 37 C 110 H 18 151/103 H 97 O2 Del Method 05/31/22 18:20 Room Air 05/31/22 18:10 Room Air 05/31/22 18:03 Room Air 05/31/22 17:05 Room Air 05/31/22 17:00 05/31/22 15:45 Room Air 05/31/22 14:43 Room Air 05/31/22 12:15 Room Air 05/31/22 10:35 Room Air Pain Intensity Right Flank: Pain Intensity: 7 Transfer of Care Handoff Completed per policy Notes Mental Status: alert / awake / arousable Patient Amnestic to Procedure: Yes Nausea / Vomiting: adequately controlled Pain: adequately controlled Airway Patency, RR, SpO2: stable & adequate BP & HR: stable & adequate Hydration State: stable & adequate Anesthetic Complications: no major complications apparent
--- NOTE | 2022-05-31 18:30 | Fluoroscopy Report ---
FL retrograde includes kub HISTORY: 26 years-old Female RT CYSTO STENT PLACEMENT right-sided cystourethrogram COMPARISON: CT abdomen and pelvis of same day TECHNIQUE: Multiple real-time fluoroscopic images of the abdomen were obtained utilizing 13.1 seconds fluoroscopy time FINDINGS: Retrograde injection of contrast into the right ureter. No significant hydronephrosis, calyceal or ur eteral filling defects identified. Subsequent images demonstrate placement of a right ureteral stent, proximal portion appearing to be in satisfactory positioning. Cholecystectomy clips are noted. IMPRESSION: Fluoroscopic assistance as above. ACT 112: Negative or not required by law. The above report was generated using voice recognition software. It may contain grammatical, syntax o r spelling errors. Electronically signed by: Ayaz Nick M.D. 05/31/2022 6:29 PM
--- NOTE | 2022-05-31 19:11 | Discharge Summary ---
Date of Service May 31, 2022 Admission HPI Per Admitting Provider Patient presented to the ED with intractable abdominal pain. An abdominal/pelvic CT was performed and results revealed an 8mm x 5mm mid right ureteral calculus without hydronephrosis. The patient has had on and off hematuria since her SI joint surgery that was performed on January 01, 2022. She had a CT of her abd/pelvis performed in the ED in December for fever, SI joint pain, and hematuria. She was found to have bilateral kidney stones without obstruction and was due to see Urology on two separate occasions, one of which was today and the appointment was cancelled. Additional PMH includes: SIJ fusion, anxiety/d epression and spina bifida for which she had surgery with cage/screw placement in 2011. Patient will be admitted for observation, medical management and Urology consultation. Please see A/P for further details. Admission Exam Per Admitting Provider Neuro: AAOx4, PERRLA, no aphagia, memory changes, CNII-XII grossly intact HEENT: head normocephalic, moist mucus membranes CV: S1/S2, (-) M/G/R, (-) edema, cap refill < 3 seconds Resp: Lungs CTA in all skaggs. On RA GI: Abdomen generally tender, RLQ with Right flank radiation. Non distended. Ax4 bowel sounds, (+)right-sided CVA tenderness Musculoskeletal: 5/5 B/L UE strength, 5/5 B/L LE strength. No gait disturbance Skin: (-) rashes , (-) erythema. Psych: tearful but cooperative mood Principal Diagnosis Right ureteral stone status post stenting 05/31/2022 Discharge Exam GENERAL: Alert and oriented x3. NAD, on RA. HEENT: No pallor, no icterus. Pupils equal, round and reactive to light. Oral mucosa moist. NECK: No JVD, no neck masses. HEART: S1 and S2 heard. Regular rate and rhythm. No murmur, no gallop. RESPIRATORY SYSTEM: Normal AP diameter. No accessory muscle use. No wheezing, no crackles. ABDOMEN: Soft, bowel sounds present,nontender, no distention. CENTRAL NERVOUS SYSTEM: No facial droop. Speech is clear. Obeys simple commands. Moves extremities. EXTREMITIES: No edema, no erythema seen. No CVA angle tenderness. Discharge Data Allergies Allergy/AdvReac Type Severity Reaction Status Date / Time cephalexin Allergy Unknown rash Verified 05/31/22 14:56 codeine Allergy Unknown HIVES Verified 05/31/22 14:56 pamabrom Allergy Unknown REDMANS Verified 05/31/22 14:56 SYNDROME, SWELLING magnesium AdvReac Severe Hives Verified 05/31/22 14:56 Consultations 05/31/22 15:28 Consult Urology Stat Procedures Performed Operation Date: 05/31/22 12:10 Actual Procedures p Cystoscopy, Right Ureteral Stent Insertion(Right) - Aleksandr York MD Ordered Studies 05/31/22 10:56 US Renal Bladder [US renal/blad retro comp] Stat 05/31/22 13:21 CT abd pelvis wo con Stat 05/31/22 16:14 FL retrograde includes kub Routine Hospital Course (1) Renal calculi: Plan 26 yo F w/ PMH of recurrent nephrolithiasis status post spontaneous passing [no urology visit as outpatient so far], 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 Patient reports last spontaneous passing of stone in December associated with hematuria. Admitting labs reviewed, no leukocytosis, no signs/symptoms of UTI. CTAP with right and left nephrolithiasis without hydronephrosis, discussed with urology, status post right ureteral stenting today, being discharged with recommendations from urology--->> antibiotics/pain medication/Flomax. Patient seen at bedside again after OR, insisted that she wants to go home today, reports feeling well, patient is to have diet and then discharge later in the evening if she continues to feel better. Total Time Total Time Spent Total Time Spent (In Minutes): 35 Discharge Plan Discharge Items Patient Disposition: Home - Self-Care Reason For Visit: KIDNEY STONE, ABDOMINAL PAIN, BLOOD CLOT Discharge Diagnosis: Right ureteral stone status post stenting 05/31/2022 Condition on Discharge: Good Activity: Resume your previous activity Non-emergency contact: Primary Care Provider Call non-emergency contact if: you have any medication questions and your symptoms worsen Follow-up/Referrals: Sonido Viramontes MD [Primary Care Provider] - Diet: Regular Addtl Attending Provider Instructions: Take Tylenol and ibuprofen as needed for pain. For additional pain medication, you can call our office and we can prescribe narcotics. Continue taking Flomax as this can help with stent discomfort. Oxybutynin as needed, however this can cause dry mouth, constipation and difficulty urinating so only use when necessary. It is normal to have blood in his urine while the stent is in place. The more activity perform, the bloody or your urine will be. This is okay as long as you are able to urinate. You will be called regarding a follow-up appointment to determine stone treatment. Call the office earlier with fevers or uncontrolled pain. Addtl Balance Truer Provider Instructions: Diagnosis: Kidney stone, renal colic Ibuprofen 600 mg every 6 hours as needed for pain with food. Tylenol 1000 mg every 8 hours as needed for pain. Continue Flomax 0.4 mg once daily. Ultram 50 mg every 6 hours as needed for more severe pain. This medication can be combined with both ibuprofen and Tylenol Drink plenty of clear fluids. Follow-up with urology as soon as possible. Urine cultures are pending. You will be notified if antibiotics are warranted. Return to the ER for worsening of symptoms or any medical concerns. Pending Studies at Discharge: Yes (Admitting urine culture) Stand-Alone Forms: [facility] Emergency Department, Important Visit Information Medications and DC Order Prescriptions: New tramadol [Ultram] 50 mg tablet 50 mg PO Q6H PRN (Reason: pain) Qty: 20 0RF tamsulosin [Flomax] 0.4 mg capsule 0.4 mg PO DAILY Qty: 30 0RF docusate sodium [Col-Rite] 100 mg capsule 100 mg PO BID Qty: 20 0RF oxybutynin chloride [Ditropan XL] 5 mg tablet extended release 24hr 5 mg PO DAILY Qty: 20 0RF sulfamethoxazole-trimethoprim [Bactrim DS] 800-160 mg tablet 1 tab PO BID 3 Days Qty: 6 0RF oxycodone 5 mg tablet 5 mg PO Q6H PRN (Reason: pain) Qty: 7 0RF Continued norethindrone-e.estradiol-iron [Yumi Fe 1.5/30 (28)] 1.5 mg-30 mcg (21)/75 mg (7) tablet 1 tab PO HS Qty: 84 4RF Rx Instructions: Take 1 tablet by mouth daily. Active pills only, no placebo. buspirone 15 mg tablet 15 mg PO TID topiramate 50 mg tablet See Rx Instructions .ROUTE .COMPLEX Rx Instructions: take 1 tablet orally in the morning, and 2 tablets at bedtime ibuprofen 600 mg tablet 600 mg PO Q8H PRN (Reason: Pain) duloxetine 60 mg capsule,delayed release(DR/EC) 60 mg PO HS ondansetron HCl 4 mg tablet 4 mg PO Q8H PRN (Reason: nausea and vomiting) Qty: 20 0RF Discontinued tamsulosin 0.4 mg capsule 0.4 mg PO QAM Discharge Orders: Discharge Order (Routine); Ordered 05/31/22 Ordered By: Luz Mora/Other Patient Handouts: ED Kidney Stone w/ Colic Admission Data Admit Date/Time: 05/31/22 17:27 Attending Provider: Luz Llanos Admit Provider: Luz Llanos Primary Care Provider: Sonido Viramontes Other Providers: Aleksandr York
--- NOTE | 2022-05-31 21:55 | Emergency Department Note ---
Impression & Plan Renal colic on right side ED Provider Note CHIEF COMPLAINT: kidney stone, passed blood clot HISTORY OF PRESENT ILLNESS: This 26 yo female patient presents to the emergency department with plaints of a kidney stone. She states she is passing clots and her pain is severe. Patient was here 2 weeks ago and was diagnosed with a kidney stone. She was able to manage the pain and thought she could pass it. She was scheduled to see urology today however she passed out on the floor of the bathroom and they decided to come to the emergency department. Patient denies any fevers, chills, chest pain or shortness of breath. She has been vomiting but she believes this is due to the pain. Patient does have a remote history of kidney stones and feels this is slightly different in nature. REVIEW OF SYSTEMS: A review of systems was performed with positives and pertinent negatives listed in the history of present illness. 10 systems were reviewed and are otherwise negative. ALLERGIES: see below MEDICATIONS: see below PMH: see below SOCIAL HISTORY: see below DDx: Renal colic, UTI, appendicitis, diverticulitis, mesenteric ischemia, aortic pathology, infections, inflammatory bowel disease, PUD, biliary pathology, as well as other pathologies. PHYSICAL EXAM: Vital signs reviewed. General: Well-appearing 26 yo female, in no significant distress. HEENT: No scleral icterus, PERRLA, neck supple. Atraumatic. Cardiovascular: Regular rate and rhythm, no extra sounds. Pulmonary: Clear to auscultation bilaterally, normal work of breathing. Abdomen: Soft, nontender, nondistended, positive bowel sounds. + R CVA tenderness Musculoskeletal: Atraumatic, no peripheral edema. Neurologic: Patient awake alert and oriented x 3 Skin: Warm, dry, no rash EMERGENCY DEPARTMENT COURSE/MDM: This patient was evaluated and appeared to be in significant discomfort. IV access was obtained and laboratory work was drawn. The patient was placed on the traffic monitor specialist and noted to be in a normal sinus rhythm. She was medicated with IV Dilaudid and Zofran. The patient was hydrated with normal saline solution. Ultrasound of the retroperitoneum was performed and reveals no evidence of hydro nephrosis or hydroureter and a 3 mm left renal calculus. Previously visualized kidney stones are no longer visible on KUB. CT scan of the abdomen pelvis was performed as the patient continued to have excruciating pain. She was given additional Dilaudid and the CT is concerning for an 8 mm nonobstructing renal stone. Patient's case was discussed with the hospitalist service as well as urology who will evaluate the patient for further management. MONITORING: An order for cardiac monitoring was placed and the patient is noted to be in a NSR at 70 beats per minute. RADIOLOGY: see below DISPOSITION: Admit Past Med/Surg History Medical History Anxiety and depression History of COVID-19 04/15/22>via home test History of hydronephrosis Hx of ovarian cyst Kidney stones Medical marijuana use Migraine Spina bifida occulta REASON FOR BACK SURGERY Surgical History Axillary accessory breast tissue (08/24/19) s/p excision bilateral axillary breast tissue>benign 08/24/19: LMA#4. Anesthesia post-op progress note: Immediately prior to discharge patient's heart rate increased to 130s. Patient denied chest pain or any feelings of palpitations. Heart rate dropped back down to the 90s with a few deep breaths. Review of chart shows that heart rate in the past has lived between high 90s to 130s. Patient remained asymptomatic and heart rate was in the 90s at the time of discharge. History of appendectomy 2013 History of back surgery 2011 - cage and screws lower back spina bifada at History of cholecystectomy 07/2017 History of cystoscopy with stent 05/31/22: MAC. S/P fusion of sacroiliac joint 2021 S/P LASIK surgery of both eyes 2014 S/P tonsillectomy approx 2000 S/P wisdom tooth extraction Family History Grandfather (Paternal) Colorectal cancer Father Dyslipidemia Depression Hypertension Grandmother (Maternal) Diabetes Mother Kidney stones Premature delivery Gestational diabetes Grandfather (Maternal) Dyslipidemia Gestational diabetes Hypertension Family/Other Breast cancer maternal great aunt Other No family history of adverse response to anesthesia Denies family history of Ovarian cancer Social History Smoking Status: Never smoker Tobacco Type: Cigarettes Second Hand Exposure: No; Hx Alcohol Use: No Hx Substance Use: No Preferred Language: [place] Communication Ability: Effective 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 Beliefs That Will Affect Care: None marital status: Current Living Situation: Family Current Living Situation Comment: and daughter current occupational status: employed Feels Safe at Home: Yes Safety Concerns: Feels Safe At This Time Assistive Devices: Glasses Allergies Allergies Allergy/AdvReac Type Severity Reaction Status Date / Time pamabrom Allergy Severe REDMANS Verified 06/06/22 07:33 SYNDROME, SWELLING codeine Allergy Intermediate HIVES Verified 06/06/22 07:33 magnesium Allergy Intermediate Hives Verified 06/06/22 07:33 cephalexin Allergy Mild rash Verified 06/06/22 07:33 Home Meds Home Medications Medication Instructions Recorded Confirmed duloxetine 60 mg capsule,delayed 60 mg PO HS 01/12/22 06/06/22 release buspirone 15 mg tablet 15 mg PO TID 05/31/22 06/06/22 topiramate 50 mg tablet See Rx Instructions .Route .COMPLEX 05/31/22 06/06/22 Medical Marijuana 1 dose inhalation UD PRN 06/06/22 06/06/22 PAIN/ANXIETY Previous Rx's Medication Instructions Recorded ondansetron HCl 4 mg tablet 4 mg PO Q8H PRN nausea and 01/12/22 vomiting #20 tabs norethindrone 1.5 mg-ethinyl 1 tab PO HS #84 tabs 05/17/22 estradiol 30 mcg(21)/iron 75 mg(7) tablet (Yumi Fe 1.5/30 (28)) docusate sodium 100 mg capsule 100 mg PO BID #20 caps 05/31/22 (Col-Rite) oxybutynin chloride 5 mg 5 mg PO DAILY #20 tabs 05/31/22 tablet,extended release 24 hr (Ditropan XL) tamsulosin 0.4 mg capsule (Flomax) 0.4 mg PO DAILY #30 caps 05/31/22 tramadol 50 mg tablet (Ultram) 50 mg PO Q6H PRN pain #20 tabs 05/31/22 ketorolac 10 mg tablet 10 mg PO TID 5 days #15 tabs 06/04/22 oxycodone 5 mg tablet 5 mg PO Q6H PRN pain #7 tabs 06/07/22 Results & Data (ED) Vital Signs Vital Signs - 24 hr 05/31/22 10:35 05/31/22 12:15 05/31/22 14:43 Temperature 37 C Temperature Source Oral Pulse Rate 110 H Pulse Rate [Left Finger] 89 106 H Pulse Rhythm [Left Finger] Regular Pulse Strength [Left Finger] Normal Respiratory Rate 18 16 16 Respiratory Effort / Characteristics Non-Labored Spontaneous Respiratory Depth Normal Blood Pressure 151/103 H Blood Pressure [Left Arm] 119/78 Blood Pressure Mean 119 Blood Pressure Mean [Left Arm] 91 Pulse Oximetry 97 98 99 Oxygen Delivery Method Room Air Room Air Room Air Sepsis Recent Fever Within 48 Hours No Sepsis New/Unexplained Change in Mental Status No Sepsis Action Taken by Nursing No Action Required Home Medications Current Medication List: was personally reviewed by me Laboratory Data Attestation: I reviewed the patient's lab results. Result diagrams: 05/31/22 10:54 05/31/22 10:54 Lab Results 05/31/22 05/31/22 05/31/22 Range/Units 10:54 10:54 10:54 WBC 8.38 (4.8-10.8) K/ul RBC 5.44 H (3.93-5.22) M/uL Hgb 15.9 (12.0-16.0) g/dl Hct 45.6 H (34.1-44.9) % MCV 83.8 (80.0-100.0) fL MCH 29.2 (25.0-34.0) pg MCHC 34.9 (32.0-36.0) g/dL RDW Std Deviation 38.8 (36.4-46.3) fL RDW Coeff of Bailey 12.8 (11.5-14.5) % Plt Count 401 H (130-400) K/uL MPV 9.6 (9.4-12.3) fL Immature Gran % (Auto) 0.4 % Neut % (Auto) 56.4 % Lymph % (Auto) 35.3 % Mcdowell % (Auto) 6.0 % Eos % (Auto) 1.4 % Baso % (Auto) 0.5 % Neut # (Auto) 4.73 (1.4-6.5) K/uL Lymph # (Auto) 2.96 (1.2-3.4) K/uL Mcdowell # (Auto) 0.50 (0.24-0.82) K/uL Eos # (Auto) 0.12 (0-0.50) K/uL Baso # (Auto) 0.04 (0-0.2) K/uL Immature Gran # (Auto) 0.03 H (0.00-0.02) K/uL Sodium 137 (136-145) mmol/L Potassium 3.7 (3.5-5.1) mmol/L Chloride 106 (98-107) mmol/L Carbon Dioxide 23 (21-32) mmol/L Anion Gap 8 (3-11) BUN 11 (6-23) mg/dl Creatinine 0.82 (0.6-1.2) mg/dl Est Cr Clr Drug Dosing 80.8 ml/min Est GFR ( Amer) 112.9 ml/min Est GFR (Non-Af Amer) 97.4 ml/min BUN/Creatinine Ratio 13.4 (10-20) Glucose 96 (70-99(Fasting)) mg/dl Calcium 9.5 (8.5-10.1) mg/dl Total Bilirubin 0.6 (0.2-1.0) mg/dl AST 16 (13-39) U/L ALT 21 (7-52) U/L Alkaline Phosphatase 55 (34-104) U/L Total Protein 7.4 (6.0-8.3) gm/dl Albumin 4.3 (3.4-5.0) gm/dl Globulin 3.1 (2.5-4.0) gm/dl Albumin/Globulin Ratio 1.4 (0.9-2) Urine Color Yellow Urine Appearance Clear (Clear) Urine pH 6.0 (4.5-7.5) Ur Specific [place] 1.004 (1.000-1.030) Urine Protein Negative (Negative) Urine Glucose (UA) Negative (Negative) Urine Ketones Negative (Negative) Urine Blood 2+ H (Negative) Urine Nitrite Negative (Negative) Urine Bilirubin Negative (Negative) Urine Urobilinogen Negative (Negative) Ur Leukocyte Esterase Trace H (Negative) Urine WBC (Auto) 5-10 H (0-5) /hpf Urine RBC (Auto) 0-4 (0-4) /hpf U Hyaline Cast (Auto) 0 (0-5) /lpf U Epithel Cells (Auto) 20-30 H (0-5) /lpf Urine Bacteria (Auto) 2+ H (Negative) Urine Yeast Not Reportable POC Ur Test (NEG) 05/31/22 Range/Units 10:54 WBC (4.8-10.8) K/ul RBC (3.93-5.22) M/uL Hgb (12.0-16.0) g/dl Hct (34.1-44.9) % MCV (80.0-100.0) fL MCH (25.0-34.0) pg MCHC (32.0-36.0) g/dL RDW Std Deviation (36.4-46.3) fL RDW Coeff of Bailey (11.5-14.5) % Plt Count (130-400) K/uL MPV (9.4-12.3) fL Immature Gran % (Auto) % Neut % (Auto) % Lymph % (Auto) % Mcdowell % (Auto) % Eos % (Auto) % Baso % (Auto) % Neut # (Auto) (1.4-6.5) K/uL Lymph # (Auto) (1.2-3.4) K/uL Mcdowell # (Auto) (0.24-0.82) K/uL Eos # (Auto) (0-0.50) K/uL Baso # (Auto) (0-0.2) K/uL Immature Gran # (Auto) (0.00-0.02) K/uL Sodium (136-145) mmol/L Potassium (3.5-5.1) mmol/L Chloride (98-107) mmol/L Carbon Dioxide (21-32) mmol/L Anion Gap (3-11) BUN (6-23) mg/dl Creatinine (0.6-1.2) mg/dl Est Cr Clr Drug Dosing ml/min Est GFR ( Amer) ml/min Est GFR (Non-Af Amer) ml/min BUN/Creatinine Ratio (10-20) Glucose (70-99(Fasting)) mg/dl Calcium (8.5-10.1) mg/dl Total Bilirubin (0.2-1.0) mg/dl AST (13-39) U/L ALT (7-52) U/L Alkaline Phosphatase (34-104) U/L Total Protein (6.0-8.3) gm/dl Albumin (3.4-5.0) gm/dl Globulin (2.5-4.0) gm/dl Albumin/Globulin Ratio (0.9-2) Urine Color Urine Appearance (Clear) Urine pH (4.5-7.5) Ur Specific [place] (1.000-1.030) Urine Protein (Negative) Urine Glucose (UA) (Negative) Urine Ketones (Negative) Urine Blood (Negative) Urine Nitrite (Negative) Urine Bilirubin (Negative) Urine Urobilinogen (Negative) Ur Leukocyte Esterase (Negative) Urine WBC (Auto) (0-5) /hpf Urine RBC (Auto) (0-4) /hpf U Hyaline Cast (Auto) (0-5) /lpf U Epithel Cells (Auto) (0-5) /lpf Urine Bacteria (Auto) (Negative) Urine Yeast POC Ur Test NEG (NEG) Administered Medications Discontinued Medications Hydromorphone HCl (Hydromorphone Inj 0.5 Mg/0.5 Ml Syr) 0.5 mg IV NOW STA Stop: 05/31/22 10:57 Last Admin: 05/31/22 11:04 Dose: 0.5 mg Documented By: DAYAN Hydromorphone HCl (Hydromorphone Inj 0.5 Mg/0.5 Ml Syr) 0.5 mg IV NOW STA Stop: 05/31/22 12:11 Last Admin: 05/31/22 12:14 Dose: 0.5 mg Documented By: MAYELIN Hydromorphone HCl (Hydromorphone Inj 0.5 Mg/0.5 Ml Syr) 0.5 mg IV NOW STA Stop: 05/31/22 13:51 Last Admin: 05/31/22 13:54 Dose: 0.5 mg Documented By: MAYELIN Hydromorphone HCl (Hydromorphone Inj 0.5 Mg/0.5 Ml Syr) 0.5 mg IV NOW STA Stop: 05/31/22 14:57 Last Admin: 05/31/22 15:38 Dose: 0.5 mg Documented By: MAYELIN Sodium Chloride (Nss 1000ml) 1,000 mls @ 999 mls/hr IV .Q1H1M KERON Stop: 05/31/22 11:57 Last Infusion: 05/31/22 12:21 Dose: 0 mls/hr Documented By: Admin: 05/31/22 11:03 Dose: 999 mls/hr Documented By: DAYAN Acetaminophen (Ofirmev) 1,000 mg in 100 mls @ 400 mls/hr IV NOW STA Stop: 05/31/22 15:10 Last Infusion: 05/31/22 16:41 Dose: 0 mls/hr Documented By: Admin: 05/31/22 15:38 Dose: 400 mls/hr Documented By: MAYELIN Lactated Ringer's (Lr) 1,000 mls @ 80 mls/hr IV .[id number] KERON Stop: 06/30/22 16:14 Last Admin: 05/31/22 16:36 Dose: 80 mls/hr Documented By: MATILDA Ceftriaxone Sodium (Rocephin) 2,000 mg in 70 mls @ 140 mls/hr IV NOW STA Stop: 05/31/22 17:52 Last Admin: 05/31/22 20:01 Dose: Not Given Documented By: KAREN Ketorolac Tromethamine (Ketorolac Tromethamine 15 Mg/Ml Vial) 10 mg IV NOW ONE Stop: 05/31/22 11:06 Last Admin: 05/31/22 11:35 Dose: 10 mg Documented By: MAYELIN Ondansetron HCl (Ondansetron Inj 2 Mg/Ml 2 Ml Vial) 4 mg IV NOW STA Stop: 05/31/22 10:57 Last Admin: 05/31/22 11:03 Dose: 4 mg Documented By: DAYAN Imaging Data Radiologist's Impression: KUB X-Ray 05/31/22 10:56 KUB CLINICAL HISTORY: Left flank pain. FINDINGS: 2 AP supine abdominal radiographs are compared to study dated 02/12/2017 and correlated with abdominal CT dated 01/12/2022. Cholecystectomy clips are noted in the right upper quadrant. There is no bowel obstruction. Mild fecal retention is seen throughout the colon. No evidence of intraperitoneal free air is identified on the supine images. Indeterminant foreign bodies project over the left lower quadrant. No abnormal abdominal calcifications are identified. There are tiny pelvic phleboliths. The bony structures appear i ntact. Postoperative change is noted at the lumbosacral junction. IMPRESSION: 1. No acute abnormality is identified. 2. Radiodense foreign bodies project over the left lower quadrant and may be external to the patient. Clinical correlation will be required. 3. Kidney stones seen on the prior abdominal CT scan are not visualized by x- ray. Electronically signed by: Rafat Monique M.D. 05/31/2022 11:37 AM Renal Ultrasound 05/31/22 10:56 RENAL ULTRASOUND CLINICAL HISTORY: R flank pain, kidney stone. COMPARISON STUDY: Renal ultrasound July 10, 2020. CT of the abdomen and pelvis January 12, 2022. TECHNIQUE: Sonography of the kidneys and the urinary bladder was performed. FINDINGS: Right kidney measures 10.2 cm in maximal dimension and the left measures 10.5 cm. There is no hydronephrosis. Renal echogenicity, size and cortical thickness are normal. A 3 mm left renal calculus is noted. Both ureteral jets were identified. Bladder is unremarkable. IMPRESSION: 1. No hydronephrosis. 2. 3 mm left renal calculus. ACT 112: Negative or not required by law. Electronically signed by: Miguel Lester M.D. 05/31/2022 11:59 AM Abdomen/Pelvis CT 05/31/22 13:21 CT OF THE ABDOMEN AND PELVIS WITHOUT CONTRAST CLINICAL HISTORY: Right flank pain. COMPARISON STUDY: CT of the abdomen and pelvis January 12, 2022. KUB and renal ultrasound May 31, 2022. TECHNIQUE: Axial images of the abdomen and pelvis were obtained without IV contrast. Images were reviewed in the axial, sagittal, and coronal planes. Automated exposure control was utilized for the study. A dose lowering technique was utilized adhering to the principles of ALARA. FINDINGS: Lung bases are unremarkable. No pneumatosis, free air or portal venous gas is present. There are several small left renal calculi that measure up to 3 mm. There are no left ureteral calculi. There is no hydronephrosis. An 8 mm x 5 mm right abdominal calcification on axial image 282 of 436 represents a nonobstructing mid ureteral calculus. This calculus was within the right kidney on CT of January 12, 2022. There are no additional ureteral calculi. Evaluation of the remainder of the abdomen and pelvis is suboptimal on this unenhanced exam. There is no biliary ductal dilatation status post cholecystectomy. Spleen, adrenal glands and pancreas are unremarkable. There is no evidence for a bowel obstruction. The appendix is not visualized. No ascites is present. Postoperative findings within the lumbosacral spine are noted. Left sacroiliac joint fusion is noted. IMPRESSION: 1. Nonobstructing 8 mm x 5 mm mid right ureteral calculus. No hydronephrosis. 2. Left-sided nephrolithiasis. 3. No bowel obstruction. ACT 112: Negative or not required by law. Electronically signed by: Miguel Lester M.D. 05/31/2022 2:49 PM Blood Pressure Blood Pressure Findings: Elevated blood pressure Blood Pressure Disposition: further management by hospitalist Discharge Plan Visit Data Chief Complaint: Kidney Stone Stated Complaint: KIDNEY STONE, ABDOMINAL PAIN, BLOOD CLOT ED Provider: Nora Radford Discharge Problem: Renal colic on right side Patient Disposition: Admitted As Inpatient Condition: Good Discharge Instructions Interventions: ED Discharge Assessment Last Done: 05/31/22 17:26
== END 2022-05-31 21:18 | disposition home or self-care (01) ==
LOC: ED 10:07 → INTOOBSV 15:17 → 3N 17:26 → OR 17:26 → 3N 17:27